=== PATIENT | female | born 1950 | race Caucasian/White ===

== ENCOUNTER → 2017-02-06 | Outpatient (CLI) | payer MEDICARE, OTHER ==
--- NOTE | 2017-02-06 15:26 | CT ---
EXAMINATION TYPE: CT chest wo con DATE OF EXAM: 02/06/2017 3:14 PM COMPARISON: NONE HISTORY: sob, hx of breast ca CT DLP: 791.1 mGycm High-resolution noncontrast CT of the chest was performed with the patient in the prone and supine po sitions. Lung and mediastinal window settings are submitted. Scattered areas of the subpleural fibrosis are noted within the upper lobes bilaterally as well as th e right middle lobe, lingular segment as well as the basilar regions. No evidence for focal consolida tion. No evidence for bronchiectasis. I do not see evidence for pulmonary nodule or mass. No pleural effusion is identified. I do not see evidence for hilar or mediastinal mass or adenopathy. Incidental of postoperative changes of the lower cervical spine as well as the left breast. Small fix ed hiatal hernia detected. IMPRESSION: 1. Mild scattered idiopathic pulmonary fibrosis.
== END ==
LOC: RADCTMAIN 14:53
PROVIDERS: ATTEND Family Medicine
DX: J84.112 Idiopathic pulmonary fibrosis (principal)
CPT/HCPCS: 71250; 94060; 94726; 94729; 99204

== ENCOUNTER 2017-02-13 10:13 | Day surgery (SDC) | payer MEDICARE, OTHER ==
[~2017-02-13 10:13] MED LIST: ALBUTEROL NEB (CONC) 2.5 MG/0.5 ML INHALATION ONE; ATROPINE SULFATE 0.4 MG/ML 1 ML VIAL IM ONE; LACTATED RINGERS 1,000 ML IV ONE; LACTATED RINGERS 1,000 ML IV SCH; LIDOCAINE 2% (PF) 20 MG/ML 10ML INHALATION ONE; Pre Op ABX Message 1 EACH MISC MISCELLANE ONE
[2017-02-13] MEDS ORDERED: LIDOCAINE 1% 20 ML VIAL (10MG/ML) FOR IV START INTRADERMA ONE (10:50)
[2017-02-13] MEDS ORDERED: KETAMINE 10 MG/ML 20 ML VIAL ONE (11:01)
[2017-02-13] MEDS ORDERED: PROPOFOL 10 MG/ML 20 ML VIAL IV ONE (11:01)
[2017-02-13] MEDS ORDERED: fentaNYL (PF) 50 MCG/ML 2 ML AMP ONE (11:01)
[2017-02-13] MEDS ORDERED: LIDOCAINE 1% INJ 10MG/ML (20 ML MDV) ONE (11:01)
[2017-02-13] MEDS ORDERED: MIDAZOLAM 2 MG/2 ML VIAL ONE (11:01)
[2017-02-13 11:03] VITALS: RESP 16; TEMP 98.7
[2017-02-13 11:07] LABS: Glucose,Whole Blood 131 mg/dL (75-99)
[2017-02-13 12:12] VITALS: BP 106/56; PULSE 66
[2017-02-13 16:49] LABS: RBC, Body Fluid 14100 /uL
--- NOTE | 2017-02-13 21:07 | PCN ---
DATE OF PROCEDURE: 02/13/2017 PROCEDURE: Bronchoscopy, airway examination, therapeutic lavage, BAL right middle lobe. PREOPERATIVE DIAGNOSIS: Retained secretions, cough, tracheobronchomalacia. POSTOPERATIVE DIAGNOSIS: Severe tracheobronchomalacia with mucosal erythema, hyperemia and secretions. There was informed consent. There was universal timeout. The nurse game protector provided general anesthesia with unconscious sedation. After the patient was adequately sedated and being fully monitored, the bronchoscope was inserted through the right nostril. It passed through the right nasopharynx into the oropharynx. The hypopharynx was identified and topicalized. She had a very crowded hypopharynx. After topicalization, the bronchoscope was pushed through the glottic opening into the trachea. The hypopharyngeal structures, including anterior commissure, true cords, false cords, arytenoids, piriform sinuses, right and left valleculae and epiglottis, all appeared relatively normal. In the trachea, there was significant tracheomalacia. The tracheal reggie was sharp. The airways were topicalized. The right and left mainstem were topicalized. The right upper lobe and its 3 segments, the right middle lobe and its 2 segments, the right lower lobe and its 5 segments, the left upper lobe proper and its 2 segments, the lingula and its 2 segments, and the left lower lobe and its 4 segments had similar findings of diffuse bronchitis, erythema and hyperemia. The membranes were friable. There were thick yellow-green secretions noted throughout. There was significant bronchomalacia. The bronchoscope was wedged into the right middle lobe. We did the BAL. The patient tolerated the procedure well. Additional secretions were cleansed with saline. Afterwards, the bronchoscope was withdrawn. There were no immediate pain complications. The patient will be recovered. The BAL specimen for the right middle lobe will be sent to the laboratory for analysis.
== END 2017-02-13 12:30 | disposition home or self-care (01) ==
LOC: ORWHC2ENDO 10:13
PROVIDERS: ATTEND Internal Medicine Critical Care Medicine
DX: J39.8 Other specified diseases of upper respiratory tract (principal); J98.09 Other diseases of bronchus, not elsewhere classified; R05 Cough; Z77.22 Contact with and (suspected) exposure to environmental tobacco smoke (acute) (chronic); K21.9 Gastro-esophageal reflux disease without esophagitis; E11.9 Type 2 diabetes mellitus without complications; Z79.811 Long term (current) use of aromatase inhibitors; Z79.51 Long term (current) use of inhaled steroids; Z79.899 Other long term (current) drug therapy; Z88.1 Allergy status to other antibiotic agents; Z88.0 Allergy status to penicillin; Z88.8 Allergy status to other drugs, medicaments and biological substances
CPT/HCPCS: 87798 ×4; 87496; 87498; 87529 ×2; 88108; 88305; 89050; 87252; 87502 ×2; 87070; 87205; 87116; 87102; 87206; 31624; J2250; J2001; J3010; J2704

== ENCOUNTER → 2017-03-13 | Outpatient (CLI) | payer MEDICARE, OTHER ==
--- NOTE | 2017-03-15 09:31 | USB ---
Reason for exam: additional evaluation requested from abnormal screening. History: Patient is postmenopausal, has history of breast cancer at age 64, and had first child at age 37. Family history of breast cancer in paternal aunt. Malignant US breast localization LT, May 17, 2015. Malignant US biopsy breast VAD LT of the left breast, April 29, 2015. Radiation therapy of the left breast, 2014. Benign US left guided VAD of the left breast, December 29, 2009. Took estrogen for 1 year beginning at age 42. US Breast RT Right breast ultrasound includes all four quadrants, the retroareolar region and axilla. Finding demonstrate no cystic or solid lesion seen. These results were verbally communicated with the patient and result sheet given to the patient on 03/13/17. ASSESSMENT: Negative, BI-RAD 1 RECOMMENDATION: Follow-up diagnostic mammogram of the right breast in 6 months.
--- NOTE | 2017-03-15 09:31 | MM ---
Reason for exam: additional evaluation requested from prior study. Last mammogram was performed 1 year ago. History: Patient is postmenopausal, has history of breast cancer at age 64, and had first child at age 37. Family history of breast cancer in paternal aunt. Malignant US breast localization LT, May 17, 2015. Malignant US biopsy breast VAD LT of the left breast, April 29, 2015. Radiation therapy of the left breast, 2014. Benign US left guided VAD of the left breast, December 29, 2009. Took estrogen for 1 year beginning at age 42. Physical Findings: Nurse did not find any significant physical abnormalities on exam. MG 3D Diag Mammo W/Cad YARITZA Bilateral CC and MLO view(s) were taken. XCCL view(s) were taken of the left breast. Prior study comparison: March 06, 2016, bilateral MG 3d diag mammo w/cad YARITZA. April 29, 2015, left breast MG diagnostic mammo LT wo CAD. There are scattered fibroglandular densities. Finding: There is a typically benign equal density, circumscribed oval mass located 12 cm from the nipple in the upper quadrant, posterior position of the right breast. New finding since March 06, 2016 and April 29, 2015. These results were verbally communicated with the patient and result sheet given to the patient on 03/12/17. ASSESSMENT: Incomplete: need additional imaging evaluation, BI-RAD 0 RECOMMENDATION: Ultrasound of the right breast.
== END | disposition home or self-care (01) ==
LOC: RADMAMWWP 13:13
PROVIDERS: ATTEND Radiology Diagnostic Radiology
DX: R92.8 Other abnormal and inconclusive findings on diagnostic imaging of breast (principal); Z85.3 Personal history of malignant neoplasm of breast
CPT/HCPCS: 76641; G0204; G0279

== ENCOUNTER 2017-03-22 15:40 | Inpatient (IN) | payer MEDICARE, OTHER ==
[2017-03-29] MEDS ORDERED: TRANEXAMIC ACID 1,000 MG in SODIUM CHLORIDE 0.9% 100 ML IVPB ONE ×4 (05:00)
[2017-03-29] MEDS ORDERED: MELOXICAM 7.5 MG TAB PO ONE (05:00)
[2017-03-29] MEDS ORDERED: ONDANSETRON 4 MG/2 ML VIAL IVP ONE ×2 (05:00→05:34)
[2017-03-29] MEDS ORDERED: ceFAZolin 2 GM in SODIUM CHLORIDE 0.9% 100 ML IVPB ONE (05:00)
[2017-03-29] MEDS ORDERED: ACETAMINOPHEN TAB 500 MG TAB PO ONE (05:00)
[2017-03-29] MEDS ORDERED: SCOPOLAMINE 1.5MG/72HR PATCH TRANSDERM ONE (05:34)
[2017-03-29] MEDS ORDERED: LIDOCAINE 1% 20 ML VIAL (10MG/ML) FOR IV START INTRADERMA PRN (05:34)
[2017-03-29] MEDS ORDERED: DEXAMETHASONE SOD PHOSPHATE 10 MG/ML 1 ML VIAL IV ONE (05:34)
[2017-03-29] MEDS ORDERED: HYDROmorphone 1 MG/ML 1 ML SYRINGE IVP PRN ×4 (05:34→13:24)
[2017-03-29] MEDS ORDERED: ROPIVACAINE 246.25 MG, EPINEPHrine 0.5 MG, KETOROLAC 30 MG, cloNIDine HCL/PF 80 MCG, WA... MISCELLANE ONE ×5 (08:56)
[2017-03-29] MEDS: LACTATED RINGERS 1,000 ML IV SCH ×2 (11:54→17:33)
[2017-03-29 11:59] LABS: Glucose,Whole Blood 93 mg/dL (75-99)
[2017-03-29] MEDS ORDERED: TEMAZEPAM 15 MG CAP PO PRN (13:24)
[2017-03-29] MEDS ORDERED: BISACODYL 10 MG SUPP RECTAL PRN (13:24)
[2017-03-29] MEDS ORDERED: ONDANSETRON 4 MG/2 ML VIAL IVP PRN ×2 (13:24→17:51)
[2017-03-29] MEDS ORDERED: NA PHOS,M-B/NA PHOS,DI-BA 133 ML ENEMA RECTAL PRN (13:24)
[2017-03-29] MEDS ORDERED: NALOXONE 0.4 MG/ML 1 ML VIAL IV PRN ×2 (13:24→17:51)
[2017-03-29] MEDS ORDERED: MAGNESIUM HYDROXIDE 2,400 MG/10 ML CUP PO PRN (13:24)
[2017-03-29] MEDS ORDERED: HYDROcodone/APAP 7.5-325MG 1 EACH TAB PO PRN ×2 (13:24)
[2017-03-29] MEDS ORDERED: ACETAMINOPHEN TAB 325 MG TAB PO PRN (13:24)
[2017-03-29 13:42] LABS: Glucose,Whole Blood 101 mg/dL (75-99)
[2017-03-29] MEDS ORDERED: fentaNYL (PF) 50 MCG/ML 2 ML AMP ONE (13:58)
[2017-03-29] MEDS ORDERED: LIDOCAINE 1% INJ 10MG/ML (20 ML MDV) ONE (13:58)
[2017-03-29] MEDS ORDERED: SODIUM CHLORIDE 0.9% 100 ML BAG ONE (13:58)
[2017-03-29] MEDS ORDERED: MIDAZOLAM 2 MG/2 ML VIAL ONE (13:58)
[2017-03-29] MEDS ORDERED: MORPHINE SULFATE (PF) 0.3 MG/0.3 ML SYR ONE (13:58)
[2017-03-29] MEDS ORDERED: PROPOFOL 10 MG/ML 20 ML VIAL IV ONE (13:58)
[2017-03-29] MEDS ORDERED: TRANEXAMIC ACID 1,000 MG/10 ML VIAL ONE (13:58)
[2017-03-29] MEDS: ceFAZolin 2 GM in SODIUM CHLORIDE 0.9% 100 ML IVPB SCH (14:14)
[2017-03-29] MEDS ORDERED: CLINDAMYCIN 1,800 MG in SODIUM CHLORIDE 0.9% IRRIGATIO 3,000 ML IRRIGATION ONE (14:43)
[2017-03-29] MEDS ORDERED: LACTATED RINGERS 1,000 ML IV ONE (14:44)
[2017-03-29] MEDS ORDERED: diphenhydrAMINE 50 MG/ML 1 ML VIAL IVP ONE (16:39)
[2017-03-29] MEDS: NALBUPHINE 10 MG/ML AMPUL IV STA ×2 (16:56→17:51)
--- NOTE | 2017-03-29 16:57 | XR ---
Limited left knee history: Postop left knee arthroplasty 2 views of the left knee No comparisons Patient is status post left knee arthroplasty. There is anatomic alignment. Small ossific densities a re present laterally likely related to surgery, lucency in the soft tissues likely related to postop state. IMPRESSION: Orthopedic follow-up.
[2017-03-29] MEDS ORDERED: MORPHINE SULFATE 4 MG/ML SYRINGE IVP PRN (17:51)
[2017-03-29] MEDS: diphenhydrAMINE 50 MG/ML 1 ML VIAL IVP PRN (19:18)
[2017-03-29] MEDS: hydrOXYzine PAMOATE 25 MG CAP PO PRN (20:13)
[2017-03-29] MEDS ORDERED: MORPHINE SULFATE 2 MG/ML SYRINGE IVP PRN (21:35)
[2017-03-29] MEDS: ASPIRIN 325 MG TAB PO SCH (23:05)
[2017-03-29] MEDS: SENNOSIDES-DOCUSATE SODIUM 1 EACH TAB PO SCH (23:05)
[2017-03-30] MEDS: ceFAZolin 2 GM in SODIUM CHLORIDE 0.9% 100 ML IVPB SCH (01:23)
[2017-03-30] MEDS: IPRATROPIUM-ALBUTEROL 3 ML NEB INHALATION PRN ×2 (03:38→22:04)
[2017-03-30] MEDS: diphenhydrAMINE 50 MG/ML 1 ML VIAL IVP PRN (05:09)
[2017-03-30] MEDS: LACTATED RINGERS 1,000 ML IV SCH ×4 (05:13→15:54)
[2017-03-30 07:11] LABS: Glucose,Whole Blood 143 mg/dL (75-99)
[2017-03-30 07:50] LABS: Basophils % (A) 0 %; CH 28.3; CHCM 29.3; Eosinophils % (A) 0 %; HCT 31.4 % (34.0-46.0); HDW 2.81; HGB 9.4 gm/dL (11.4-16.0); Hypochromasia Marked; Luc # (Auto) 0.09; Luc % (Auto) 1; Lymphocytes # (A) 0.9 k/uL (1.0-4.8); Lymphocytes % (A) 12 %; MCH 28.9 pg (25.0-35.0); MCHC 29.8 g/dL (31.0-37.0); MCV 96.7 fL (80.0-100.0); Monocytes # (A) 0.5 k/uL (0-1.0); Monocytes % (A) 6 %; Neutrophils % (A) 80 %; RBC 3.24 m/uL (3.80-5.40); RDW 15.2 % (11.5-15.5); WBC 7.5 k/uL (3.8-10.6); WBC (Perox) 7.72
[2017-03-30] MEDS ORDERED: ALBUTEROL NEBULIZED 2.5 MG/3 ML INHALATION SCH (08:00)
[2017-03-30] MEDS: ASPIRIN 325 MG TAB PO SCH ×2 (08:34→23:02)
--- NOTE | 2017-03-30 08:43 | P.PN ---
Progress Note - Text Date: 03-30-17 Time: 715 The patient is status post, total left knee arthroplasty Vital signs stable VAS: 3-10 The patient incurred some minimal itching yesterday, this itching is now subsiding. Pain meds to be managed by service.
[2017-03-30] MEDS: IPRATROPIUM-ALBUTEROL 3 ML NEB INHALATION SCH ×4 (08:49→19:58)
--- NOTE | 2017-03-30 08:54 | OP ---
DATE OF SERVICE: SURGEON: ARIES TOVAR MD JAMB CUTTER: Delgado No PA-C PREOPERATIVE DIAGNOSIS: Left knee osteoarthrosis. POSTOPERATIVE DIAGNOSIS: Left knee osteoarthrosis. OPERATION: Left total knee arthroplasty. ANESTHESIA: Spinal with sedation. ESTIMATED BLOOD LOSS: 100 mL SPECIMENS REMOVED: COMPLICATIONS: None apparent. TOURNIQUET TIME: 51 minutes at 250 mmHg. DRAINS: None. DISPOSITION: Postanesthesia care unit. OPERATIVE FINDINGS: INDICATIONS: Elsa is a very pleasant 66-year-old female with long-standing history of left knee pain. History and physical examination are consistent with advanced left knee osteoarthrosis. She has been through significant nonoperative management up to this point. Further treatment options were discussed and she decided to go forward with left total knee arthroplasty. The risks of the procedure were discussed with her in detail. These risks include, but are not limited to risk of infection, nerve damage, bleeding, pain, a small risk of deep vein thrombosis, which could lead to fatal pulmonary embolism. There is also a risk of loosening of the implant, which could require revision operation. Patient understands these risks. All of her questions were answered to her satisfaction. Appropriate informed consent was obtained. DESCRIPTION OF PROCEDURE: Patient was identified in the preoperative holding area. Surgical site was marked by both the patient and myself. She was given 2 grams of Ancef IV for prophylactic purposes. She was then transferred to the operative suite where she was placed supine on the operating room table. A spinal anesthetic was then administered and dosed per the anesthesia department without apparent complications. Examination under anesthesia was then performed. The patient was 2 to 3 degrees shy of full extension. She had 100 degrees of flexion in the medial collateral ligament. Lateral collateral ligament and posterior cruciate ligaments were stable. Tourniquet was then placed high on the left upper thigh, well padded in preparation for surgery. The patient's left lower extremity was then prepped and draped in the usual sterile fashion. Standard surgical pause was then undertaken to ensure that we are operating on the correct site and that appropriate preoperative antibiotics had been given. All staff in the room were in agreement and we proceeded. The outlines of the patella were then marked with surgical pen. A planned 12 cm vertical incision centered over the patella was marked with a surgical pen. The leg was then exsanguinated with an Esmarch dressing. The knee was then flexed and tourniquet was inflated to 250 mmHg. The total tourniquet time for the procedure was 51 minutes. Incision was then made with a 10 blade scalpel. Dissection was carried down sharply to the overlying fascia. Great care was taken to minimize the skin flaps. The knee was then exposed using a standard medial parapatellar approach. Small cuff of quadriceps tendon was then left for suturing. She was in a bit of varus preoperatively. A standard medial release was then made. Superficial medial collateral ligament was dissected off the bone around to the posterior aspect of the proximal tibia. The medial meniscus was then excised as well. The lateral meniscus was also released anteriorly. The leg was then externally rotated. The patella was everted and the knee was flexed. Retractors were then placed to protect the collateral ligaments. I then proceeded to remove the infrapatellar fat pad. This was excised sharply tangentially with the fibers of the patellar tendon. I then proceeded to remove the peripheral osteophytes. This was done with a rongeur. I then proceeded with distal femoral resection. She did have near full extension. A planned 9 mm resection was done. The femoral canal was then entered in the midline of the femur, approximately 10 mm anterior to the origin of the posterior cruciate ligament. The lilly was then advanced down the center of the femur and the lilly placed intramedullary. Based on preoperative radiographs, the angle between the anatomic and mechanical axis of the femur was approximately 4 to 5 degrees. The valgus angle of distal femoral cutting guide was then set at 4 degrees for the left knee. The distal femoral cutting guide was then advanced over the intramedullary lilly. This was seated firmly against the femur. I then, as mentioned, planned to take 9 mm off of the distal femur. The cutting block was then secured onto the femur with pins. The jig was then removed and the distal femoral cut was made through the slot of the block. The pins were then removed and the distal femoral cutting block was removed. The accuracy of the distal femoral cuts was checked with 2 flat bars. I then proceeded with femoral sizing. The posterior referencing sizing guide was held firmly against the resected distal surface of the femur. Posterior condyles were resting on the posterior plane of the guide. Sizing stylus was then placed on the anterior femur. Size was measured a size 7. I then assessed for femoral rotation. Plan was for 3 degrees external rotation, 3 degrees of external rotation was placed onto the jig. These holes were then marked. I then confirmed the rotation by 3 separate methods. This was done using epicondylar axis as well as Whitesides line and posterior referencing. It was deemed that the external rotation was proper. I then went forward placing the femoral cutting block. This was placed over the previously placed pinholes. Tristen wing was then placed onto the anterior slots to ensure that we would not notch the anterior femur with the anterior femoral cut. I then proceeded with the anterior femoral cut. This was flush with the anterior cortex of the femur. Posterior cuts were then made followed by the anterior chamfer cut and then the posterior chamfer cut. The cutting block was then removed. Throughout the resection, the collateral ligaments were protected with retractors. I then placed a trial size 7 femur. It was deemed that a 7 narrow would fit very nice medial to lateral and it fit flush with the distal end of the femur. The drill holes were then made. I then proceeded with the tibial cut. I planned for cruciate-retaining knee. The guide was then placed and set for varus valgus and for slope. Height was set for approximately 2 mm resection from the medial tibial plateau, which was the lower side. I was happy with the alignment and the amount of resection. The cutting block was then pinned to the proximal tibia. The alignment lilly was removed and the proximal tibia was resected with the reciprocating saw. Again, this was done with retractors, protecting the collateral ligaments as well as posterior cruciate ligament. I then proceeded violate the flexion-extension gaps. A 10 mm block was placed. The flexion-extension gaps were equal. I then proceeded with resection of the posterior osteophytes. She had very mild amount of the posterior osteophytes. This was done with a curved osteotome. This resected the posterior osteophytes and posterior capsule stripping was also done off the posterior aspect of the femur at this time. The osteophytes were then removed. I then proceeded to resection of the patella. Thickness of the patella was then measured using the caliper. The thickness was 22 mm. The thickness of the anticipated patellar dome was then taken into account. Resection was informed be equal in 4 quadrants using the caliper. Approximately 14 mm of bone remained after the resection. A 29 x 8 mm standard patellar trial was then placed. The holes were then drilled and trial was then placed. I then proceeded with sizing tibial plate. A size D tibial plate fit very nicely. I then placed trial femur, the tibial tray and the patellar button. A 10 mm trial insert was also placed. I then trialed that up to a 14 mm insert. Components fit very nicely. She had full flexion and extension. The extension and flexion gaps were equal and stable to both varus and valgus stress. The patella tracked appropriately. The tibial tray rotation was then marked with a Bovie. This was externally rotated properly. I then proceeded with tibial preparation. I first drilled femoral holes and removed femoral component. The tibial tray was then set for proper external rotation as well as mediolateral placement onto the tibia. It was then pinned into place. I then proceeded with punching the keel. I then decided to proceed with cementing of all of our components. The knee was thoroughly irrigated with sterile saline solution via pulse lavage. The lateral geniculate artery was identified and cauterized. All blood was removed from the bone of the tibia, femur and patella with pulse lavage. I then proceeded with cementing. 2 packs of antibiotic bone cement were prepared on the back table by the county program technician. I then proceeded with cementing of the tibia first. The cement was impacted in the keel as well as deeply seated into the bone. A second coat of cement was then placed. The tibia was then impacted into place. Excess cement was removed with Marbury's and jokers. I then proceeded with cementing of femoral component. The femoral component was also cemented using standard technique. Excess cement was removed. A 14 mm trial insert was then placed into the knee. It was brought into full extension with a constant axial load placed until the cement had hardened. The patellar component was then cemented. This was held firmly with a compressive device until the cement had dried. When the cement had dried, the knee was taken out of extension. All excess cement was removed from around the prosthesis. I then trialed the knee with a 14 mm insert. Flexion-extension gaps were appropriate. The knee was stable. It came into full extension. I decided to go forward with a 14 mm cross-linked cruciate-retaining tibial insert. Polyethylene was then placed onto the tibial tray and locked into place. The knee was then reduced. The knee was again further irrigated with sterile saline solution with antibiotic added. The tourniquet was then deflated. The total tourniquet time for this procedure was 51 minutes at 250 mmHg. Final components were Catie persona size 7 narrow cruciate-retaining femoral component, a size D tibial tray, a 14 mm cruciate retaining polyethylene insert and a 29 x 8 mm patella. I then proceeded with closure. Again, the knee was thoroughly irrigated. The quadriceps tendon and the medial retinaculum were reapproximated with #2 Ethibond suture. The extensor mechanism was then closed with running #2 Quill suture. Subcutaneous tissues were then closed with 2-0 Vicryl interrupted suture. Skin was closed with a running 3-0 Quill suture. Dermabond was applied to the incision. Sterile compressive dressings were then applied. All sponge and needle counts were deemed correct prior to closure. The patient tolerated the procedure without apparent complication. She was transferred to recovery room in stable condition.
[2017-03-30] MEDS: DIAZEPAM 5 MG TAB PO PRN (11:22)
[2017-03-30] MEDS: MULTIVITAMINS, THERA 1 EACH TAB PO SCH (11:22)
[2017-03-30] MEDS ORDERED: oxyCODONE-APAP 7.5-325MG 1 EACH TAB PO PRN (11:30)
--- NOTE | 2017-03-30 11:38 | P.PN ---
Subjective Principal diagnosis: Status post left total knee arthroplasty Patient is a pleasant 66 female seen at bedside this morning where she is postop day #1 from left total knee arthroplasty performed by Dr. Collado. She has pain at the surgical site as expected. She denies new complaints. She denies calf pain. She states she's had chronic numbness and tingling from a previous broken neck. Review of systems is negative for fever, chills, chest pain, shortness breath, nausea, vomiting, dizziness, headaches, slurred speech or other.. Objective - Vital Signs Vital signs: Vital Signs Temp 98.3 F 03/30/17 07:00 Pulse 90 03/30/17 11:28 Resp 16 03/30/17 07:00 BP 114/61 03/30/17 07:00 Pulse Ox 92 L 03/30/17 07:00 Intake & Output 03/29/17 03/30/17 03/30/17 18:59 06:59 18:59 Intake Total 1801 1200 360 Output Total 200 1600 900 Balance 1601 -400 -540 Intake: IV 1801 Intake, IV Titration 1200 Amount Lactated Ringers 1,000 ml 1200 @ 100 mls/hr IV .Q10H KARL Rx#:[id number] Oral 360 Output: Urine 100 1600 900 Uretheral (Marquez) 900 Estimated Blood Loss 100 Other: Voiding Method Indwelling Catheter Indwelling Catheter Indwelling Catheter - Exam Inspection of the surgical wound is benign. There is no active bleeding, drainage or dehiscence. Motor and sensation is intact throughout the left lower extremity. Calf is soft and nontender. 2+ dorsalis pedis pulse and less than 2 second cap refill is present. She has pain at the left knee with minimal movement. - Constitutional General appearance: Present: no acute distress - Psychiatric Psychiatric: Present: A&O x's 3, appropriate affect, intact judgment & insight - Labs CBC & Chem 7: 03/30/17 06:57 Labs: Abnormal Lab Results - Last 24 Hours (Table) 03/29/17 03/30/17 03/30/17 Range/Units 13:39 06:57 07:09 RBC 3.24 L (3.80-5.40) m/uL Hgb 9.4 L (11.4-16.0) gm/dL Hct 31.4 L (34.0-46.0) % MCHC 29.8 L (31.0-37.0) g/dL Lymphocytes # 0.9 L (1.0-4.8) k/uL POC Glucose (mg/dL) 101 H 143 H (75-99) mg/dL Assessment and Plan (1) Status post total left knee replacement Narrative/Plan: Patient will continue with routine postop orthopedic protocol including pain management where her pain medicine will be increased to oxycodone as her pain is not controlled with hydrocodone, physical therapy, wound care, DVT prophylaxis and medical management. We'll monitor her status today and make further recommendations as appropriate. Status: Acute Time with Patient: Less than 30
[2017-03-30 11:59] LABS: Glucose,Whole Blood 122 mg/dL (75-99)
[2017-03-30] MEDS: DULoxetine HCL 60 MG CAPSULE.DR PO SCH (12:15)
[2017-03-30] MEDS: oxyCODONE-APAP 7.5-325MG 1 EACH TAB PO PRN ×2 (12:15→18:53)
[2017-03-30] MEDS: traMADol 50 MG TAB PO PRN (16:31)
[2017-03-30] MEDS: hydrOXYzine PAMOATE 25 MG CAP PO PRN (18:54)
[2017-03-30] MEDS: BUDESONIDE 0.5 MG/2 ML NEBU INHALATION SCH (19:56)
--- NOTE | 2017-03-30 20:11 | CONS ---
DATE OF CONSULTATION: REASON FOR CONSULTATION: Recommendations regarding antihypertensive medications, perioperative complication management. Patient is a pleasant 66-year-old female admitted for left knee arthroplasty. Patient successfully underwent surgery. Patient did not pass gas yet. Patient's hemoglobin is 9.4 at this point of time. Patient's pre-surgery hemoglobin is not available. Patient denied any fever or chills. Patient denied any nausea, vomiting, abdominal pain. REVIEW OF SYSTEMS: CONSTITUTIONAL: No fever, no malaise, no fatigue. HEENT: No recent visual problems or hearing problems. Denied any sore throat. CARDIOVASCULAR: No chest pain, orthopnea, PND, no palpitations, no syncope. PULMONARY: No shortness of breath, no cough, no hemoptysis. GASTROINTESTINAL: No diarrhea, no nausea, no vomiting, no abdominal pain. Normoactive bowel sounds. NEUROLOGICAL: No headaches, no weakness, no numbness. HEMATOLOGICAL: Denies any bleeding or petechiae. GENITOURINARY: Denies any burning micturition, frequency, or urgency. MUSCULOSKELETAL/RHEUMATOLOGICAL: Denies any joint pain, swelling, or any muscle pain. ENDOCRINE: Denies any polyuria or polydipsia. The rest of the 14 point review of systems is negative. Home medications include: 1. Verapamil. 2. Temazepam. 3. Melatonin. 4. Magnesium oxide. 5. Hydrochlorothiazide. 6. Duloxetine. 7. Cetirizine. 8. Budesonide. 9. Vitamin B complex. 10. Albuterol. Past medical history is significant for: 1. Breast surgery. 2. Orthopedic surgery. 3. Cervical fusion surgery. 4. Anxiety. 5. Depression. Denied any smoking or alcohol abuse, but does drink a couple of glasses of wine every day. Denied any drug abuse. FAMILY HISTORY: Significant for prostate cancer. PHYSICAL EXAMINATION: VITAL SIGNS: Temperature 98.1, pulse of 90, respiratory rate of 16. Blood pressure is 120/68. Saturating at 95% on room air. GENERAL: The patient is alert and oriented x3, not in any acute distress. Well developed, well nourished. HEENT: Pupils are round and equally reacting to light. EOMI. No scleral icterus. No conjunctival pallor. Normocephalic, atraumatic. No pharyngeal erythema. No thyromegaly. CARDIOVASCULAR: S1 and S2 present. No murmurs, rubs, or gallops. PULMONARY: Chest is clear to auscultation, no wheezing or crackles. ABDOMEN: Soft, nontender, nondistended, normoactive bowel sounds. No palpable organomegaly. MUSCULOSKELETAL: Deferred to Orthopedic Surgery. EXTREMITIES: No cyanosis, clubbing, or pedal edema. NEUROLOGICAL: Gross neurological examination did not reveal any focal deficits. SKIN: No rashes. LABORATORY DATA: As mentioned above. ASSESSMENT AND PLAN: 1. Hypertension. To prevent perioperative hypotension, I will hold off on antihypertensive medications. 2. Asthma without any acute exacerbation. Continue with inhalational steroids. 3. Depression. Continue with Duloxetine. 4. Left knee arthroplasty. Management as per primary service. Thank for letting me participate in this patient's care. Will continue to follow the patient on an as-needed basis. Verapamil will be continued to prevent any reflex tachycardia. Losartan and diuretic therapy will be held.
[2017-03-30] MEDS: SENNOSIDES-DOCUSATE SODIUM 1 EACH TAB PO SCH (23:02)
[2017-03-30] MEDS: MELATONIN 5 MG TABLET PO SCH (23:03)
[2017-03-31] MEDS: oxyCODONE-APAP 7.5-325MG 1 EACH TAB PO PRN ×4 (01:29→21:12)
[2017-03-31] MEDS: DIAZEPAM 5 MG TAB PO PRN ×3 (03:38→19:37)
[2017-03-31] MEDS: traMADol 50 MG TAB PO PRN ×3 (03:39→16:35)
[2017-03-31] MEDS: LACTATED RINGERS 1,000 ML IV SCH ×3 (07:10→13:48)
[2017-03-31] MEDS: IPRATROPIUM-ALBUTEROL 3 ML NEB INHALATION SCH ×4 (08:00→19:48)
[2017-03-31] MEDS: BUDESONIDE 0.5 MG/2 ML NEBU INHALATION SCH ×2 (08:00→19:48)
[2017-03-31] MEDS: hydrOXYzine PAMOATE 25 MG CAP PO PRN ×2 (08:47→15:02)
[2017-03-31] MEDS: DULoxetine HCL 60 MG CAPSULE.DR PO SCH (08:48)
[2017-03-31] MEDS: ASPIRIN 325 MG TAB PO SCH ×2 (08:48→20:20)
[2017-03-31] MEDS: VERAPAMIL SR 180 MG TABLET.ER PO SCH (08:48)
[2017-03-31] MEDS ORDERED: DULoxetine HCL 60 MG CAPSULE.DR PO SCH (09:00)
--- NOTE | 2017-03-31 10:20 | P.PN ---
Subjective Principal diagnosis: Primary osteoarthritis left knee Status post total left knee arthroplasty This is a 66-year-old female who is status post total left knee arthroplasty. She is doing well from an orthopedic standpoint. She has no new complaints or concerns today. Vital signs are stable. Objective - Vital Signs Vital signs: Vital Signs Temp 97.9 F 03/31/17 07:00 Pulse 96 03/31/17 08:17 Resp 16 03/31/17 07:00 BP 132/68 03/31/17 07:00 Pulse Ox 90 L 03/31/17 08:04 Intake & Output 03/30/17 03/31/17 03/31/17 18:59 06:59 18:59 Intake Total 2200 Output Total 1100 Balance 1100 Intake: Oral 2200 Output: Urine 1100 Uretheral (Marquez) 900 Other: Voiding Method Indwelling Catheter Toilet # Voids 4 - Exam This is a pleasant 56-year-old female in no acute distress. She is alert and oriented 3. Exam the left knee reveals that her incision looks good. There is mild ecchymosis. There is no erythema. There is mild ecchymosis down into the calf. She has full foot and ankle motion without difficulty or pain. Homans is negative. Neurovascular status to the lower extremities intact. - Labs CBC & Chem 7: 03/30/17 06:57 Labs: Abnormal Lab Results - Last 24 Hours (Table) 03/30/17 Range/Units 11:44 POC Glucose (mg/dL) 122 H (75-99) mg/dL Assessment and Plan (1) Unilateral primary osteoarthritis, left knee Status: Acute (2) Status post total left knee replacement Status: Acute Plan: The clinical findings are discussed the patient. Her dressing is changed. He may continue to ambulate as tolerated. We are planning discharge to inpatient rehab Sunday.
[2017-03-31] MEDS: MULTIVITAMINS, THERA 1 EACH TAB PO SCH (11:00)
[2017-03-31] MEDS: MELATONIN 5 MG TABLET PO SCH (20:20)
[2017-03-31] MEDS: SENNOSIDES-DOCUSATE SODIUM 1 EACH TAB PO SCH (20:20)
[2017-04-01] MEDS: LACTATED RINGERS 1,000 ML IV SCH ×3 (02:33→09:23)
[2017-04-01] MEDS: oxyCODONE-APAP 7.5-325MG 1 EACH TAB PO PRN ×4 (03:21→23:22)
[2017-04-01 07:24] LABS: Basophils # (A) 0.1 k/uL (0-0.2); Basophils % (A) 1 %; CH 28.4; CHCM 30.7; Eosinophils # (A) 0.3 k/uL (0-0.7); Eosinophils % (A) 3 %; HCT 31.8 % (34.0-46.0); HDW 2.95; HGB 9.8 gm/dL (11.4-16.0); Hypochromasia Moderate; Luc # (Auto) 0.23; Luc % (Auto) 3; Lymphocytes # (A) 2.4 k/uL (1.0-4.8); Lymphocytes % (A) 26 %; MCH 28.7 pg (25.0-35.0); MCHC 30.9 g/dL (31.0-37.0); MCV 92.8 fL (80.0-100.0); Mean Platelet Volume 7.3; Monocytes # (A) 0.8 k/uL (0-1.0); Monocytes % (A) 8 %; Neutrophils # (A) 5.5 k/uL (1.3-7.7); Neutrophils % (A) 59 %; RBC 3.42 m/uL (3.80-5.40); RDW 15.5 % (11.5-15.5); WBC 9.2 k/uL (3.8-10.6); WBC (Perox) 9.33
[2017-04-01] MEDS: ASPIRIN 325 MG TAB PO SCH ×2 (08:24→20:25)
[2017-04-01] MEDS: DIAZEPAM 5 MG TAB PO PRN ×2 (08:25→22:59)
[2017-04-01] MEDS: VERAPAMIL SR 180 MG TABLET.ER PO SCH (08:25)
[2017-04-01] MEDS: traMADol 50 MG TAB PO PRN (08:25)
[2017-04-01] MEDS: DULoxetine HCL 60 MG CAPSULE.DR PO SCH (08:25)
[2017-04-01] MEDS: BUDESONIDE 0.5 MG/2 ML NEBU INHALATION SCH ×2 (08:37→18:53)
[2017-04-01] MEDS: IPRATROPIUM-ALBUTEROL 3 ML NEB INHALATION SCH ×4 (08:37→18:53)
--- NOTE | 2017-04-01 09:28 | P.PN ---
Subjective Principal diagnosis: Primary osteoarthritis left knee Status post total left knee arthroplasty This is a 66-year-old female who is status post total left knee arthroplasty. She is doing well from an orthopedic standpoint. She has no new complaints or concerns today. Vital signs are stable. Objective - Vital Signs Vital signs: Vital Signs Temp 97.5 F L 04/01/17 07:00 Pulse 80 04/01/17 08:49 Resp 16 04/01/17 07:00 BP 130/68 04/01/17 07:00 Pulse Ox 95 04/01/17 07:00 Intake & Output 03/31/17 04/01/17 04/01/17 18:59 06:59 18:59 Intake Total 1760 480 Balance 1760 480 Intake: Oral 1760 480 Other: Voiding Method Toilet Toilet Toilet # Voids 2 2 - Exam This is a pleasant 56-year-old female in no acute distress. She is alert and oriented 3. Exam the left knee reveals that her incision looks good. There is mild ecchymosis. There is no erythema. There is scant drainage from the proximal aspect of the incision. There is mild ecchymosis down into the calf. She has full foot and ankle motion without difficulty or pain. Homans is negative. Neurovascular status to the lower extremities intact. - Labs CBC & Chem 7: 04/01/17 07:06 Labs: Abnormal Lab Results - Last 24 Hours (Table) 04/01/17 Range/Units 07:06 RBC 3.42 L (3.80-5.40) m/uL Hgb 9.8 L (11.4-16.0) gm/dL Hct 31.8 L (34.0-46.0) % MCHC 30.9 L (31.0-37.0) g/dL Assessment and Plan (1) Unilateral primary osteoarthritis, left knee Status: Acute (2) Status post total left knee replacement Status: Acute Plan: The clinical findings are discussed the patient. Her dressing is changed. He may continue to ambulate as tolerated. We are planning discharge to inpatient rehab Sunday.
[2017-04-01] MEDS: hydrOXYzine PAMOATE 25 MG CAP PO PRN ×2 (11:23→18:18)
[2017-04-01] MEDS: MULTIVITAMINS, THERA 1 EACH TAB PO SCH (11:24)
[2017-04-01] MEDS: MELATONIN 5 MG TABLET PO SCH (20:25)
[2017-04-02] MEDS: SENNOSIDES-DOCUSATE SODIUM 1 EACH TAB PO SCH (01:21)
[2017-04-02] MEDS: LACTATED RINGERS 1,000 ML IV SCH ×4 (01:21→08:12)
[2017-04-02 03:32] VITALS: BP 110/70; RESP 17; TEMP 98.3
[2017-04-02] MEDS: oxyCODONE-APAP 7.5-325MG 1 EACH TAB PO PRN ×2 (05:47→11:37)
--- NOTE | 2017-04-02 07:47 | US ---
EXAMINATION TYPE: US venous doppler duplex LE LT DATE OF EXAM: 04/02/2017 7:41 AM COMPARISON: NONE CLINICAL HISTORY: post-opleft knee replacement. Left leg pain. SIDE PERFORMED: Left TECHNIQUE: The lower extremity deep venous system is examined utilizing real time linear array sonog john with graded compression, doppler sonography and color-flow sonography. VESSELS IMAGED: External Iliac Vein (EIV) Common Femoral Vein Deep Femoral Vein Greater Saphenous Vein * Femoral Vein Popliteal Vein Small Saphenous Vein * Proximal Calf Veins (* superficial vessels) Left Leg: Negative for DVT Grayscale, color doppler, spectral doppler imaging performed of the deep veins of the lower extremiti es. There is normal flow, compressibility, vascular waveforms bilaterally. IMPRESSION: No ultrasound evidence for acute DVT in the left lower extremity
[2017-04-02] MEDS: DULoxetine HCL 60 MG CAPSULE.DR PO SCH (08:11)
[2017-04-02] MEDS: ASPIRIN 325 MG TAB PO SCH (08:11)
[2017-04-02] MEDS: VERAPAMIL SR 180 MG TABLET.ER PO SCH (08:11)
[2017-04-02] MEDS: MULTIVITAMINS, THERA 1 EACH TAB PO SCH (08:12)
[2017-04-02] MEDS: IPRATROPIUM-ALBUTEROL 3 ML NEB INHALATION SCH ×2 (08:23→12:03)
[2017-04-02] MEDS: BUDESONIDE 0.5 MG/2 ML NEBU INHALATION SCH (08:23)
--- NOTE | 2017-04-02 09:00 | P.DS ---
Providers Date of admission: 03/29/17 11:09 Expected date of discharge: 04/02/17 Attending physician: Sudarshan Collado Consults: 03/29/17 13:24 Consult Physician Routine Consulting Provider: Shaista Thurston Consult Reason/Comments: post op medical management Do you want consulting provider notified?: Yes Primary care physician: Jacki Curtis - Discharge Diagnosis(es) (1) Status post total left knee replacement Patient is a 66-year-old female that was admitted to the OR on 03/29/2017 to undergo left total knee arthroplasty per Dr. Collado. She had failed conservative measures as an outpatient and desired to proceed with elective surgery after given informed consent. She underwent the above procedure which she tolerated well without competition. Her postoperative hospital course has remained without complication. On day of discharge she is afebrile, vital signs stable, wound is benign, labs within acceptable ranges, neurovascular status intact, denies new complaints, pain controlled with oral pain medication , tolerating by mouth meds and diet, voiding without difficulty, positive flatus , abdomen soft nontender, calf is soft and nontender. Review of systems is negative for fever, chills, chest pain, shortness of breath, numbness, tingling , nausea, vomiting, headaches, calf pain, abdominal pain, slurred speech, dizziness, rashes, bleeding or other. Current Visit: Yes Status: Acute Priority: Medium Procedures: Left total knee arthroplasty Patient Condition at Discharge: Good Plan - Discharge Summary New Discharge Prescriptions: New Aspirin 325 mg PO BID #60 tab Docusate [Colace] 100 mg PO BID #60 capsule oxyCODONE-APAP 5-325MG [Percocet 5-325 mg] 1 tab PO Q4HR PRN #90 tab PRN Reason: Pain No Action Temazepam [Restoril] 15 mg PO HS Hydrochlorothiazide [Hydrodiuril] 25 mg PO DAILY Verapamil HCl [Verapamil ER] 180 mg PO DAILY Valsartan [Diovan] 160 mg PO DAILY DULoxetine HCL [Cymbalta] 60 mg PO DAILY Fluticasone Nasal [place] [Flonase Nasal [place]] 1 spray EA NOSTRIL DAILY Cetirizine HCl [Zyrtec] 10 mg PO DAILY Budesonide [Pulmicort Flexhaler] 2 puff INHALATION RT-BID Albuterol Sulfate [Proair Hfa] 2 puff INHALATION RT-BID Melatonin 10 mg PO HS B Complex-Vit C-Vit E-Zinc [Z-Bec] 1 tab PO DAILY Magnesium Oxide [Magnesium] 250 mg PO DAILY Biotin 10,000 mcg PO DAILY Milk Thistle 480 mg PO BID Iron 18 mg PO DAILY Discharge Medication List Hydrochlorothiazide [Hydrodiuril] 25 mg PO DAILY 05/14/15 [History] Temazepam [Restoril] 15 mg PO HS 05/14/15 [History] Verapamil HCl [Verapamil ER] 180 mg PO DAILY 05/14/15 [History] Albuterol Sulfate [Proair Hfa] 2 puff INHALATION RT-BID 02/08/17 [History] Budesonide [Pulmicort Flexhaler] 2 puff INHALATION RT-BID 02/08/17 [History] Cetirizine HCl [Zyrtec] 10 mg PO DAILY 02/08/17 [History] DULoxetine HCL [Cymbalta] 60 mg PO DAILY 02/08/17 [History] Fluticasone Nasal [place] [Flonase Nasal [place]] 1 spray EA NOSTRIL DAILY 02/08/17 [History] Valsartan [Diovan] 160 mg PO DAILY 02/08/17 [History] B Complex-Vit C-Vit E-Zinc [Z-Bec] 1 tab PO DAILY 03/23/17 [History] Biotin 10,000 mcg PO DAILY 03/23/17 [History] Iron 18 mg PO DAILY 03/23/17 [History] Magnesium Oxide [Magnesium] 250 mg PO DAILY 03/23/17 [History] Melatonin 10 mg PO HS 03/23/17 [History] Milk Thistle 480 mg PO BID 03/23/17 [History] Aspirin 325 mg PO BID #60 tab 04/02/17 [Rx] Docusate [Colace] 100 mg PO BID #60 capsule 04/02/17 [Rx] oxyCODONE-APAP 5-325MG [Percocet 5-325 mg] 1 tab PO Q4HR PRN #90 tab 04/02/17 [ Rx] Follow up Appointment(s)/Referral(s): Sudarshan Collado MD [STAFF PHYSICIAN] - 2 Weeks Activity/Diet/Wound Care/Special Instructions: Take meds as directed Follow-up with Dr. Collado in office Weightbearing as tolerated keep wound clean and dry Discharge Disposition: TRANSFER TO SNF/F
[2017-04-02 12:14] VITALS: PULSE 92
--- NOTE | 2017-04-02 18:29 | PN ---
The patient is being discharged today which is okay from medical perspective. Regarding from medical perspective we will hold off on hydrochlorothiazide and valsartan as her blood pressure remained low normal in spite of holding these medications since her admission. Beyond that there is no further recommendations. Medication reconciliation was reviewed. REVIEW OF SYSTEMS: CARDIOVASCULAR: No chest pain, no orthopnea, no PND, no palpitations. PULMONARY: Denied any shortness of breath. No cough or hemoptysis. GASTROINTESTINAL: No diarrhea, nausea or vomiting. No abdominal pain. Normoactive bowel sounds. NEUROLOGIC: No headaches, no weakness, no numbness. Medications are reviewed. PHYSICAL EXAMINATION: Temperature 98.3, pulse of 92, respiratory rate 17, blood pressure is 110/70, saturating at 94% on room air. GENERAL: The patient is alert and oriented x3, not in any acute distress. Well developed, well nourished. HEENT: Pupils are round and equally reacting to light. EOMI. No scleral icterus. No conjunctival pallor. Normocephalic, atraumatic. No pharyngeal erythema. No thyromegaly. CARDIOVASCULAR: S1 and S2 present. No murmurs, rubs, or gallops. PULMONARY: Chest is clear to auscultation, no wheezing or crackles. ABDOMEN: Soft, nontender, nondistended, normoactive bowel sounds. No palpable organomegaly. MUSCULOSKELETAL: deferred to orthopedic surgery. EXTREMITIES: No cyanosis, clubbing, or pedal edema. NEUROLOGICAL: Gross neurological examination did not reveal any focal deficits. SKIN: No rashes. ASSESSMENT AND PLAN: 1. Hypertension. Management as mentioned above. 2. Asthma without acute exacerbation. 3. Depression. 4. Left knee arthroplasty. The patient medications were reviewed and patient is okay to be discharged from a medical perspective. Patient is being discharged to subacute rehabilitation. Patient needs to follow with Dr. Jacki Curtis a week after the discharge from subacute rehab. Will sign off at this point of time.
== END 2017-04-02 13:47 | DRG 470 ==
LOC: 2ORMAIN 03-29 11:09 → 3SUR 03-29 16:16
PROVIDERS: ADMIT Orthopaedic Surgery Sports Medicine; ATTEND Orthopaedic Surgery Sports Medicine
PROC: 0SRD0J9 Replacement of Left Knee Joint with Synthetic Substitute, Cemented, Open Approach (ICD-10-PCS; principal; 2017-03-29 13:20)
DX: M17.12 Unilateral primary osteoarthritis, left knee (principal); J84.10 Pulmonary fibrosis, unspecified; I10 Essential (primary) hypertension; F32.9 Major depressive disorder, single episode, unspecified; F41.9 Anxiety disorder, unspecified; J45.909 Unspecified asthma, uncomplicated; E11.9 Type 2 diabetes mellitus without complications; M48.02 Spinal stenosis, cervical region; K57.90 Diverticulosis of intestine, part unspecified, without perforation or abscess without bleeding; L43.9 Lichen planus, unspecified; G47.00 Insomnia, unspecified; M54.5 Low back pain; Z79.899 Other long term (current) drug therapy; Z88.1 Allergy status to other antibiotic agents; Z88.8 Allergy status to other drugs, medicaments and biological substances; Z85.3 Personal history of malignant neoplasm of breast; Z82.49 Family history of ischemic heart disease and other diseases of the circulatory system; Z98.1 Arthrodesis status
CPT/HCPCS: 85025; 87070; 88305; 88311; 94640; 94760

== ENCOUNTER → 2017-03-27 | Outpatient (CLI) | payer MEDICARE, OTHER | LOC: LABPAT 10:14 | PROVIDERS: ATTEND Orthopaedic Surgery Sports Medicine | DX: Z01.812 Encounter for preprocedural laboratory examination (principal) | CPT/HCPCS: 87070 ==

== ENCOUNTER 2017-04-07 15:19 | Emergency (ER) | payer MEDICARE, OTHER ==
--- NOTE | 2017-04-07 16:02 | ED ---
General Adult HPI - General Chief complaint: Extremity Problem,Nontraumatic Stated complaint: Knee Pain Time Seen by Provider: 04/07/17 15:28 Source: patient, RN notes reviewed, old records reviewed Mode of arrival: wheelchair Limitations: no limitations - History of Present Illness Initial comments: Chief complaint and history of present illness is a 66-year-old female with total left knee done recently. Just 5 days ago she had swelling to the knee and leg had an ultrasound which was reported to be negative. Since then the swelling has become worse. More discomfort on the medial aspect as well as some redness toward the medial aspect of the left knee. The patient is here for lab work and repeat ultrasound to rule out DVT. Patient does have a history of pulmonary fibrosis but denies any worsening of her shortness of breath. - Related Data Home Medications Medication Instructions Recorded Confirmed Temazepam [Restoril] 15 mg PO HS 05/14/15 04/07/17 Verapamil HCl [Verapamil ER] 180 mg PO DAILY 05/14/15 04/07/17 Albuterol Sulfate [Proair Hfa] 2 puff INHALATION RT-BID 02/08/17 04/07/17 Budesonide [Pulmicort Flexhaler] 2 puff INHALATION RT-BID 02/08/17 04/07/17 Cetirizine HCl [Zyrtec] 10 mg PO DAILY 02/08/17 04/07/17 DULoxetine HCL [Cymbalta] 60 mg PO DAILY 02/08/17 04/07/17 Fluticasone Nasal [place] [Flonase 1 spray EA NOSTRIL DAILY 02/08/17 04/07/17 Nasal [place]] B Complex-Vit C-Vit E-Zinc [Z-Bec] 1 tab PO DAILY 03/23/17 04/07/17 Biotin 10,000 mcg PO DAILY 03/23/17 04/07/17 Iron 18 mg PO DAILY 03/23/17 04/07/17 Magnesium Oxide [Magnesium] 250 mg PO DAILY 03/23/17 04/07/17 Melatonin 10 mg PO HS 03/23/17 04/07/17 Milk Thistle 480 mg PO BID 03/23/17 04/07/17 Previous Rx's Medication Instructions Recorded Aspirin 325 mg PO BID #60 tab 04/02/17 Docusate [Colace] 100 mg PO BID #60 capsule 04/02/17 oxyCODONE-APAP 5-325MG [Percocet 1 tab PO Q4HR PRN #90 tab 04/02/17 5-325 mg] Cephalexin [Keflex] 500 mg PO Q6HR #28 cap 04/07/17 Allergies Allergy/AdvReac Type Severity Reaction Status Date / Time amoxicillin trihydrate Allergy Rash/Hives Verified 04/07/17 15:25 [From Augmentin] lincomycin HCl Allergy Rash/Hives Verified 04/07/17 15:25 [From Lincocin] potassium clavulanate Allergy Rash/Hives Verified 04/07/17 15:25 [From Augmentin] procainamide Allergy Unknown Verified 04/07/17 15:25 tocainide [From Tonocard] Allergy Unknown Verified 04/07/17 15:25 avocado AdvReac CANKER Verified 04/07/17 15:25 SORES IN MOUTH tree nut [Pecan] AdvReac CANKER Verified 04/07/17 15:25 SORES IN MOUTH Review of Systems ROS Statement: Those systems with pertinent positive or pertinent negative responses have been documented in the HPI. Review of systems. No headache or visual acuity changes no chest pain just is a pulmonary fibrosis and is occasionally short of breath with exertion. No abdominal pain no nausea no vomiting no diarrhea. She recently had, approximately 9 days ago total left knee surgery. Since then she's had mild swelling. She been going to physical therapy was more difficult now because of significant swelling. His mild redness which is tender and hot medial aspect of the knee. Pitting edema from knee to foot. Patient states that she been off her HCTZ for a period of time and then just restarted it 2 days ago. All systems were reviewed. Past medical problems significant for rest cancer 2 years ago, diet-controlled diabetes mellitus. She also has GERD, hypertension for which takes verapamil and losartan. Also history of osteoarthritis pericarditis years ago with irregular heartbeat that has been controlled with the blood pressure medications he is taking. The patient's surgeries also include bilateral bunionectomies. Also recently total left knee, the patient's other surgeries include and cervical fusion. The patient's family history significant for a great aunt with breast cancer grandmother uterine cancer, some uncles with prostate cancer. Patient denies smoking now. Drink alcohol. ROS Other: All systems not noted in ROS Statement are negative. Past Medical History Past Medical History: Cancer, Diabetes Mellitus, GERD/Reflux, Hypertension, Osteoarthritis (OA) Additional Past Medical History / Comment(s): hx pericarditis, irregular heart rate with trigeminy,bigeminy, fx neck C2- limited movement of neck wears neck collar, need assistance getting up and down also has hx falls r/t mobility, elevated liver enzymes, hx breast cancer History of Any Multi-Drug Resistant Organisms: None Reported Past Surgical History: Breast Surgery, Section, Orthopedic Surgery Additional Past Surgical History / Comment(s): cervical fusion c-2, lt breast lumpectomy, lt knee meniscus repair, vocal cord surgery x3, bunionectomy rt foot , cataracts, lasik Past Anesthesia/Blood Transfusion Reactions: Postoperative Nausea & Vomiting ( PONV) Past Psychological History: Anxiety, Depression Smoking Status: Never smoker Past Alcohol Use History: Daily Additional Past Alcohol Use History / Comment(s): COUPLE GLASSES WINE DAILY Past Drug Use History: None Reported - Past Family History Brother(s) Family Medical History: Cancer Additional Family Medical History / Comment(s): prostate General Exam - General Exam Comments Initial Comments: General: The patient is awake and alert, playing of significant swelling to the point where physical therapy on her recent total left knee is too difficult to perform. She is suspicious of a DVT. She had a negative DVT study 5 days ago but she states since then becoming more swollen and more tender. Also localized redness to the medial aspect of the knee. Vital signs shows temperature 98.4 pulse 79 respiratory rate 20 pulse ox 91% on room air she does have a history of pulmonary fibrosis. Patient is not complaining of being dyspneic. Blood pressure 132/70 Eye: Pupils are equal, round and reactive to light, extra-ocular movements are intact ; there is normal conjunctiva bilaterally. No signs of icterus. Neck: The neck is supple, there is no tenderness . Cardiovascular: There is a regular rate and rhythm. No murmur, rub or gallop is appreciated. Respiratory: Lungs are clear to auscultation, pulmonary fibrosis more evident on the left side than the right side. Gastrointestinal: Soft, non-distended, non-tender abdomen without masses or organomegaly noted. There is no rebound or guarding present. No CVA tenderness. Bowel sounds are unremarkable. Back: No complaint of back pain. Musculoskeletal: Recent total left knee surgery, 9 days ago. The wound is healing well. She does have significant swelling from her surgery to her feet. Vascular status is intact. Pitting edema noted. Some areas of redness which are warm and tender. Neurological: No complaint of any focal or lateralizing findings. Skin: Tender redness around the left knee. Limitations: no limitations Course Vital Signs 04/07/17 15:22 Temperature 98.4 F Pulse Rate 79 Respiratory 20 Rate Blood Pressure 132/70 O2 Sat by Pulse 91 L Oximetry Medical Decision Making - Medical Decision Making Rectal decision making the patient's white count 6.1 hemoglobin 9.5 hematocrit 29.5 this is a gram better than it was recently. The patient's potassium is 4.3 BUN 15 creatinine 0.6 and GFR greater than 60. Glucose 109. AST ALT mildly elevated. Ultrasound of the leg was done and reviewed by radiologist his impression is negative for DVT. No sound evidence for acute DVT in left lower leg. As read by Dr. alonso The patient will be aced on cephalexin 500 4 times a day advised to follow-up with her family doctor and her surgeon. Keep leg elevated. Continue flexing and relaxing the muscles of the leg. - Lab Data Result diagrams: 04/07/17 16:10 04/07/17 16:10 Lab Results 04/07/17 04/07/17 Range/Units 16:10 16:10 WBC 6.1 (3.8-10.6) k/uL RBC 3.25 L (3.80-5.40) m/uL Hgb 9.5 L (11.4-16.0) gm/dL Hct 29.5 L (34.0-46.0) % MCV 90.9 (80.0-100.0) fL MCH 29.3 (25.0-35.0) pg MCHC 32.2 (31.0-37.0) g/dL RDW 16.1 H (11.5-15.5) % Plt Count 216 (150-450) k/uL Neutrophils % (Manual) 68.0 % Band Neutrophils % 1.0 % Lymphocytes % (Manual) 20.0 % Monocytes % (Manual) 9.0 % Eosinophils % (Manual) 2.0 % Neutrophils # (Manual) 4.2 (1.3-7.7) k/uL Lymphocytes # (Manual) 1.2 (1.0-4.8) k/uL Monocytes # (Manual) 0.5 (0-1.0) k/uL Eosinophils # (Manual) 0.1 (0-0.7) k/uL Nucleated RBCs 0 (0-0) /100 WBC Manual Slide Review Performed Hypochromasia Moderate Anisocytosis Slight Sodium 138 (137-145) mmol/L Potassium 4.3 (3.5-5.1) mmol/L Chloride 101 (98-107) mmol/L Carbon Dioxide 28 (22-30) mmol/L Anion Gap 9 mmol/L BUN 15 (7-17) mg/dL Creatinine 0.60 (0.52-1.04) mg/dL Est GFR (MDRD) Af Amer >60 (>60 ml/min/1.73 sqM) Est GFR (MDRD) Non-Af >60 (>60 ml/min/1.73 sqM) Glucose 109 H (74-99) mg/dL Calcium 9.2 (8.4-10.2) mg/dL Total Bilirubin 0.6 (0.2-1.3) mg/dL AST 83 H (14-36) U/L ALT 60 H (9-52) U/L Alkaline Phosphatase 119 (38-126) U/L Total Protein 6.7 (6.3-8.2) g/dL Albumin 3.5 (3.5-5.0) g/dL Disposition Clinical Impression: Postoperative stiffness of total knee replacement Disposition: HOME SELF-CARE Condition: Fair Instructions: Precautions after Total Joint Replacement Surgery (ED) Additional Instructions: Keep leg elevated continue to flex and relax Muscles. Continue with home medications including cephalexin 500 4 times a day for one week. Follow-up with your family doctor and orthopedic surgeon within the next several days or return emergency room as needed. Take Tylenol for fever Prescriptions: Cephalexin [Keflex] 500 mg PO Q6HR #28 cap Referrals: Jacki Curtis DO [Primary Care Provider] - 1-2 days Time of Disposition: 17:20
[2017-04-07 16:20] LABS: Anisocytosis Slight; Aty Lym Flag Slight; CH 28.3; CHCM 31.2; HCT 29.5 % (34.0-46.0); HDW 3.05; HGB 9.5 gm/dL (11.4-16.0); Hypochromasia Moderate; MCH 29.3 pg (25.0-35.0); MCHC 32.2 g/dL (31.0-37.0); MCV 90.9 fL (80.0-100.0); Mean Platelet Volume 6.8; RBC 3.25 m/uL (3.80-5.40); RDW 16.1 % (11.5-15.5); WBC 6.1 k/uL (3.8-10.6)
[2017-04-07 16:35] LABS: ALT 60 U/L (9-52); AST 83 U/L (14-36); Alkaline Phosphatase 119 U/L (38-126); Anion Gap 9 mmol/L; Blood Urea Nitrogen 15 mg/dL (7-17); Calcium 9.2 mg/dL (8.4-10.2); Carbon Dioxide 28 mmol/L (22-30); Chloride 101 mmol/L (98-107); Glucose 109 mg/dL (74-99); Non-African American GFR(MDRD) >60 (>60 ml/min/1.73 sqM); Potassium 4.3 mmol/L (3.5-5.1); Sodium 138 mmol/L (137-145); Total Bilirubin 0.6 mg/dL (0.2-1.3); Total Protein 6.7 g/dL (6.3-8.2)
[2017-04-07 16:40] LABS: Add Differential Manual Differential
[2017-04-07 16:42] LABS: Manual Review Performed; Nucleated Red Blood Cells 0 /100 WBC (0-0); Total Cells Counted 100
--- NOTE | 2017-04-07 16:50 | US ---
EXAMINATION TYPE: US venous doppler duplex LE LT DATE OF EXAM: 04/07/2017 4:34 PM COMPARISON: Recent left knee venous ultrasound April 02, 2017. CLINICAL HISTORY: Pain. post total knee done 03/29/2017 SIDE PERFORMED: Left TECHNIQUE: The lower extremity deep venous system is examined utilizing real time linear array sonog john with graded compression, doppler sonography and color-flow sonography. VESSELS IMAGED: External Iliac Vein (EIV) Common Femoral Vein Deep Femoral Vein Greater Saphenous Vein * Femoral Vein Popliteal Vein Small Saphenous Vein * Proximal Calf Veins (* superficial vessels) Left Leg: Negative for DVT Grayscale, color doppler, spectral doppler imaging performed of the deep veins of the left lower extr emity. There is normal flow, compressibility, vascular waveforms in the left leg. Mild subcutaneous edema below knee at the posterior tibial vein level is redemonstrated. IMPRESSION: No ultrasound evidence for acute DVT in the left lower extremity.
[2017-04-07] MEDS ORDERED: CEPHALEXIN 500MG STARTER PACK 4 CAP BTL PO STA (17:17)
[2017-04-07 17:47] VITALS: BP 135/74; PULSE 66; RESP 18; TEMP 97.7
== END 2017-04-07 17:45 | disposition home or self-care (01) ==
LOC: EC 15:19
DX: T81.89XA Other complications of procedures, not elsewhere classified, initial encounter (principal); M25.662 Stiffness of left knee, not elsewhere classified; R74.0 Nonspecific elevation of levels of transaminase and lactic acid dehydrogenase [LDH]; I10 Essential (primary) hypertension; F32.9 Major depressive disorder, single episode, unspecified; F41.9 Anxiety disorder, unspecified; Z79.51 Long term (current) use of inhaled steroids; Z79.899 Other long term (current) drug therapy; Z88.0 Allergy status to penicillin; Z88.1 Allergy status to other antibiotic agents; Z88.8 Allergy status to other drugs, medicaments and biological substances; Z91.018 Allergy to other foods; Z96.652 Presence of left artificial knee joint; Z85.3 Personal history of malignant neoplasm of breast; Z98.890 Other specified postprocedural states
CPT/HCPCS: 36415; 80053; 85025; 99284

== ENCOUNTER 2017-04-20 16:37 | Inpatient (IN) | payer MEDICARE, OTHER ==
[2017-04-20] MEDS ORDERED: BISACODYL 10 MG SUPP RECTAL PRN (16:41)
[2017-04-20] MEDS ORDERED: NA PHOS,M-B/NA PHOS,DI-BA 133 ML ENEMA RECTAL PRN (16:41)
[2017-04-20] MEDS ORDERED: ONDANSETRON 4 MG/2 ML VIAL IVP PRN (16:41)
[2017-04-20] MEDS ORDERED: ACETAMINOPHEN TAB 325 MG TAB PO PRN (16:41)
[2017-04-20] MEDS ORDERED: NALOXONE 0.4 MG/ML 1 ML VIAL IV PRN (16:41)
[2017-04-20] MEDS ORDERED: HYDROcodone/APAP 10-325MG 1 EACH TAB PO PRN ×2 (16:41)
[2017-04-20] MEDS ORDERED: MAGNESIUM HYDROXIDE 2,400 MG/10 ML CUP PO PRN (16:41)
[2017-04-20] MEDS ORDERED: traMADol 50 MG TAB PO PRN (16:41)
[2017-04-20] MEDS ORDERED: IV VANCOMYCIN PER PHARMACY 1 EACH MISC MISCELLANE ONE (17:00)
[2017-04-20] MEDS: VANCOMYCIN 1,500 MG in SODIUM CHLORIDE 0.9% 250 ML IVPB SCH (18:23)
[2017-04-20 18:47] LABS: ALT 58 U/L (9-52); AST 75 U/L (14-36); Alkaline Phosphatase 164 U/L (38-126); Anion Gap 12 mmol/L; Blood Urea Nitrogen 22 mg/dL (7-17); Calcium 9.3 mg/dL (8.4-10.2); Carbon Dioxide 26 mmol/L (22-30); Chloride 100 mmol/L (98-107); Glucose 113 mg/dL (74-99); Non-African American GFR(MDRD) >60 (>60 ml/min/1.73 sqM); Potassium 3.8 mmol/L (3.5-5.1); Sodium 138 mmol/L (137-145); Total Bilirubin 0.9 mg/dL (0.2-1.3); Total Protein 7.4 g/dL (6.3-8.2)
[2017-04-20] MEDS ORDERED: oxyCODONE-APAP 7.5-325MG 1 EACH TAB PO PRN (20:10)
[2017-04-20] MEDS: DIAZEPAM 5 MG TAB PO PRN (20:43)
[2017-04-20] MEDS ORDERED: MILK THISTLE PO SCH (21:00)
[2017-04-20] MEDS ORDERED: TEMAZEPAM 15 MG CAP PO PRN (21:00)
[2017-04-20] MEDS ORDERED: diphenhydrAMINE 25 MG CAP PO STA ×2 (22:08→22:25)
[2017-04-20] MEDS: HYDROmorphone 1 MG/ML 1 ML SYRINGE IVP PRN (22:28)
[2017-04-20 22:33] LABS: Glucose,Whole Blood 132 mg/dL (75-99)
[2017-04-20] MEDS: ASPIRIN 325 MG TAB PO SCH (22:33)
[2017-04-20] MEDS: MELATONIN 5 MG TABLET PO SCH (22:33)
[2017-04-20] MEDS: SENNOSIDES-DOCUSATE SODIUM 1 EACH TAB PO SCH (22:34)
[2017-04-20 23:32] LABS: Anisocytosis Slight; Basophils # (A) 0.1 k/uL (0-0.2); Basophils % (A) 1 %; CH 28.4; CHCM 29.6; Eosinophils # (A) 0.7 k/uL (0-0.7); Eosinophils % (A) 9 %; HCT 36.9 % (34.0-46.0); HDW 2.49; HGB 11.1 gm/dL (11.4-16.0); Hypochromasia Marked; Luc # (Auto) 0.17; Luc % (Auto) 2; Lymphocytes # (A) 1.5 k/uL (1.0-4.8); Lymphocytes % (A) 20 %; MCH 29.1 pg (25.0-35.0); MCHC 30.2 g/dL (31.0-37.0); MCV 96.3 fL (80.0-100.0); Macrocytosis Slight; Mean Platelet Volume 7.2; Monocytes # (A) 0.5 k/uL (0-1.0); Monocytes % (A) 7 %; Neutrophils # (A) 4.9 k/uL (1.3-7.7); Neutrophils % (A) 63 %; RBC 3.83 m/uL (3.80-5.40); RDW 16.5 % (11.5-15.5); WBC 7.9 k/uL (3.8-10.6); WBC (Perox) 8.56
--- NOTE | 2017-04-20 23:36 | P.PN ---
Progress Note - Text The patient is a very anxious 66-year-old female who was admitted with cellulitis in her left leg 3 weeks following a total knee replacement. The patient is under the care of Dr. Sudarshan Collado. Briefly, the patient was seen in the office by Dr. Collado earlier today. There was concern about superficial cellulitis so she was sent as a direct admission to the orthopedics floor. The patient was seen by Dr. Collado today at 4 PM. I received a call at 11 PM tonjose regarding this patient. Apparently she was concern that there been multiple changes in the appearance of her leg and was demanding to be seen by a physician. She threatened to leave AMA if she was not seen immediately by a physician. I spoke with the patient over the phone. I tried to assure her that there was nothing wrong with her knee and that she was on appropriate antibiotics. The patient threatened that "if she went down and she was taking me down with her." Due to multiple threats to the staff and myself over the phone I agreed to come in and examine her leg. At the time of my evaluation tonight the patient was extremely anxious. She states that anterior aspect of her left knee looks slightly pink compared to when she saw Dr. Collado today. She is concerned that things are drastically changed. She denies fevers, chills , or feelings of generalized malaise. She is able to move her left knee without too much difficulty. She says she is able to walk. On examination of the left knee there is a healing incision over the anterior aspect of the knee. There is mild erythema but minimal warmth and no palpable fluctuance or crepitance. She has minimal discomfort with gentle passive range of motion of the knee. She has a minimal effusion. Distally she is neurovascularly intact and has no pain with passive range of motion of her ankles and her toes. I see no signs concerning for deep infection or limb threatening infection that needs to be addressed surgically tonight. I reassured her that she is on appropriate broad-spectrum antibiotics and that she will be seen over the weekend by an infectious disease doctor to answer her many questions. I also reassured her that Dr. Collado is planning on seeing her in the morning. The patient was able to settle down and promised me she would keep her leg covered with a blanket and try to get some rest.
[2017-04-20] MEDS: INSULIN LISPRO (humaLOG) 300 UNIT/3 ML VIAL SQ SCH (23:49)
[2017-04-20] MEDS: TEMAZEPAM 15 MG CAP PO SCH (23:50)
[2017-04-21] MEDS ORDERED: ALPRAZolam 0.25 MG TAB PO PRN (00:21)
[2017-04-21 01:06] LABS: Hemoglobin A1C 5.2 % (4.2-6.1)
[2017-04-21] MEDS: HYDROmorphone 1 MG/ML 1 ML SYRINGE IVP PRN ×3 (02:23→23:01)
[2017-04-21] MEDS: hydrOXYzine PAMOATE 25 MG CAP PO PRN ×5 (02:28→22:04)
[2017-04-21] MEDS: diphenhydrAMINE 25 MG CAP PO PRN (05:27)
[2017-04-21] MEDS: VANCOMYCIN 1,500 MG in SODIUM CHLORIDE 0.9% 250 ML IVPB SCH ×2 (05:28→18:10)
[2017-04-21 07:13] LABS: Anisocytosis Slight; Basophils # (A) 0.1 k/uL (0-0.2); Basophils % (A) 1 %; CH 28.2; CHCM 29.9; Eosinophils # (A) 0.7 k/uL (0-0.7); Eosinophils % (A) 13 %; HCT 33.4 % (34.0-46.0); HDW 2.48; Hypochromasia Marked; Luc # (Auto) 0.13; Luc % (Auto) 2; Lymphocytes # (A) 1.4 k/uL (1.0-4.8); Lymphocytes % (A) 25 %; MCH 28.3 pg (25.0-35.0); MCHC 29.9 g/dL (31.0-37.0); MCV 94.7 fL (80.0-100.0); Mean Platelet Volume 6.7; Monocytes # (A) 0.4 k/uL (0-1.0); Monocytes % (A) 7 %; Neutrophils % (A) 53 %; RBC 3.53 m/uL (3.80-5.40); RDW 16.6 % (11.5-15.5); WBC 5.8 k/uL (3.8-10.6); WBC (Perox) 5.94
[2017-04-21 07:33] LABS: ALT 48 U/L (9-52); AST 64 U/L (14-36); Alkaline Phosphatase 141 U/L (38-126); Anion Gap 10 mmol/L; Blood Urea Nitrogen 16 mg/dL (7-17); C Reactive Protein 15.3 mg/L (<10.0); Carbon Dioxide 26 mmol/L (22-30); Chloride 102 mmol/L (98-107); Glucose 102 mg/dL (74-99); Non-African American GFR(MDRD) >60 (>60 ml/min/1.73 sqM); Potassium 4.1 mmol/L (3.5-5.1); Rheumatoid Factor, Qnt <9 IU/mL (<12); Sodium 138 mmol/L (137-145); Total Protein 6.4 g/dL (6.3-8.2)
[2017-04-21] MEDS: INSULIN LISPRO (humaLOG) 300 UNIT/3 ML VIAL SQ SCH ×4 (08:13→23:00)
[2017-04-21] MEDS: ALBUTEROL NEBULIZED 2.5 MG/3 ML INHALATION PRN ×2 (08:18→12:19)
[2017-04-21] MEDS ORDERED: FUROSEMIDE 10 MG/ML 4 ML VIAL IV SCH (09:00)
[2017-04-21] MEDS ORDERED: NON-FORMULARY DRUG (Iron [Iron] 18 MG) PO SCH (09:00)
[2017-04-21] MEDS ORDERED: NON-FORMULARY DRUG (Biotin [Biotin] 10,000 MCG) PO SCH (09:00)
--- NOTE | 2017-04-21 09:11 | CONS ---
DATE OF CONSULTATION: 04/20/2017 REASON FOR CONSULTATION: Advice regarding diabetes and multiple other medical problems, requested by Dr. Kahn. HISTORY OF PRESENT ILLNESS: This 66-year-old woman with a past medical history of multiple medical problems including history of diabetes type 2, history of GERD, hypertension, history of DJD, heart disease, history of diffuse arthritis, history of breast surgery, anxiety, depression, being followed by Dr. Vasquez in the outpatient setting, underwent left knee joint arthroplasty about 3 weeks ago. Subsequently patient went to [facility] for rehabilitation. During rehabilitation, the patient noticed some red bumps on the left leg which increased and became purple colored and subsequently became cellulitic and also the patient also had swelling also. The patient also noticing swelling and pain of the right leg also. The patient went to [facility] office and the patient admitted with direct admission at this time. There is no history of fever, rigors or chills. No history of headache, loss of consciousness or seizures. The patient also complaining of numbness in both legs, and as well as the tip of the right hand also. The patient also had cervical neck issues according to her also. The patient has severe arthritis as mentioned earlier. There is no history of any fever, rigors or chills. No history of headache, loss of consciousness or seizures. The exact etiology of arthritis is unknown according to her. The patient also seen by Dr. Kahn today and please note Dr. Kahn's dictation for further details. PAST MEDICAL HISTORY: History of diabetes, history of gastroesophageal reflux disease, hypertension, degenerative joint disease, history of pericardial irregular heart rhythm, history of anxiety, depression. Medications, home medications are: 1. Diovan 160 milligrams p.o. daily. 2. Restoril 50 mg q.6h p.r.n. 4. Melatonin 10 mg q.h.s. 5. Magnesium 250 mg p.o. daily. 6. Iron 18 milligrams p.o. daily. 7. HydroDIURIL 25 mg p.o. daily. 8. Flonase one spray daily. 9. Colace 100 mg p.o. daily. 10. Cymbalta 60 mg daily. 13. Biotin 10,000 mcg p.o. daily. 14. Zebec 1 p.o. daily. 15. Aspirin 320 mg daily. 16. Albuterol 2 puffs q.i.d. p.r.n. ALLERGIES: AMOXICILLIN, VANCOMYCIN, AUGMENTIN, PROCAINAMIDE, AVOCADO, PECAN. FAMILY HISTORY: History of prostate cancer in the family. SOCIAL HISTORY: No history of smoking. Occasional alcohol intake. REVIEW OF SYSTEMS: ENT: No diminishing hearing. No diminished vision. CARDIOVASCULAR: No angina, palpitations. RESPIRATORY SYSTEM: No coughing. GI: No nausea. : No dysuria. Nervous system: No numbness, weakness. ALLERGY/IMMUNOLOGY: As mentioned earlier. Hematology/Oncology: No history of anemia. ENDOCRINE: As mentioned earlier. CONSTITUTIONAL: As mentioned earlier. RHEUMATOLOGY: As mentioned earlier. MUSCULOSKELETAL: As mentioned earlier. PSYCHIATRY: As mentioned earlier. PHYSICAL EXAMINATION: The patient is alert and oriented times three. Pulse 90. Blood pressure 140/69, respirations 16, temperature 97.4, pulse ox 97% on room air. HEENT: Conjunctivae normal. Oral mucosa moist. NECK: No jugular distention. No carotid bruit. No lymph node enlargement. CARDIOVASCULAR: S1, S2 muffled. No S3, no S4. RESPIRATORY: Breath sound diminished at the bases. No rhonchi, no crackles. ABDOMEN: Soft and nontender. No mass palpable. No hepatosplenomegaly. Legs: Status post recent left total knee arthroplasty, significant swelling and redness, erythema, tenderness in the left lower leg present. Right leg also had erythema and tenderness also present and ecchymosis also present. Area of ecchymosis, possibly secondary to trauma, recent trauma. 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 Joints: As mentioned earlier. LYMPHATICS: No lymph nodes palpable in the neck, axillae or groin. Nervous system: Higher functions as mentioned earlier. Moves all four limbs. No focal motor or sensory deficits. Sensation diminished in both legs, below the knees. LAB INVESTIGATIONS: WBC 7.3, hemoglobin 11.1. Otherwise, glucose 113, AST 75, ALT 58. Alkaline phosphatase 164. ASSESSMENT: 1. Acute cellulitis of bilateral legs, left more than the right. 2. History of recent left total knee arthroplasty. 3. Increased AST, ALT, rule out acute hepatitis. 4. History of diabetes type 2. 5. History of gastroesophageal reflux disease. 6. Hypertension. 7. History of history of degenerative joint disease. 8. History of pericarditis. 9. History of irregular cardiac rhythm with a trigeminy bigeminy. 10. History of fracture neck C2 with limited movements. 11. History of possible peripheral neuropathy. 12. History of breast cancer. 13. History of section. 14. History of cervical fusion. 15. History of anxiety, depression, not otherwise specified. 16. FULL CODE. RECOMMENDATIONS AND DISCUSSION: In this 66-year-old woman who presented with the multiple complex medical issues, we will monitor the patient closely. Continue the current medications. Continue symptomatic. Otherwise, at this time, I recommend broad-spectrum IV antibiotics. Obtain the cultures. Baseline labs. Resume the home medications. Infectious disease has been consulted. Otherwise, closely follow with infectious disease and orthopedic surgery. Further recommendations to follow. MTDD
--- NOTE | 2017-04-21 09:19 | XR ---
EXAMINATION TYPE: XR chest 1V portable DATE OF EXAM: 04/21/2017 HISTORY: chf. REFERENCE: NONE. FINDINGS: There has been a previous anterior and posterior fusion of the lower cervical spine. The lungs appear clear. Pleural space are clear. The heart is not enlarged. IMPRESSION: NO ACUTE INTRATHORACIC ABNORMALITY.
[2017-04-21] MEDS: ASPIRIN 325 MG TAB PO SCH ×2 (09:45→20:23)
[2017-04-21] MEDS: FLUTICASONE 50MCG/SPRAY NASAL 16GM EA NOSTRIL SCH (09:45)
[2017-04-21] MEDS: MULTIVITAMINS, THERA 1 EACH TAB PO SCH (09:46)
[2017-04-21] MEDS: MAGNESIUM OXIDE 400 MG TAB PO SCH (09:46)
[2017-04-21] MEDS: B COMPLEX-VIT C-VIT E-ZINC 1 EACH TAB PO SCH (09:46)
[2017-04-21] MEDS: LORATADINE 10 MG TAB PO SCH (09:46)
[2017-04-21] MEDS: DULoxetine HCL 60 MG CAPSULE.DR PO SCH (09:46)
[2017-04-21] MEDS: VALSARTAN 160 MG TAB PO SCH (09:46)
[2017-04-21 10:03] LABS: Erythrocyte Sedimentation Rate 31 mm/hr (0-20)
--- NOTE | 2017-04-21 10:47 | P.HPOR ---
History of Present Illness H&P Date: 04/21/17 This is a well-appearing 66-year-old female who is admitted for cellulitis to lower extremity. Patient has a history of total knee arthroplasty 3 weeks ago. Patient states she has noticed increased redness and swelling to the left lower extremity that started on 04/18/2017. Patient states that at physical therapy on she noticed increasing difficulty with knee flexion. Patient also reports increased pain of the left knee. Patient denies any numbness/weakness/tingling to the left lower extremity or fever/chills. Review of Systems See HPI. Past Medical History Past Medical History: Cancer, Diabetes Mellitus, GERD/Reflux, Hypertension, Osteoarthritis (OA) Additional Past Medical History / Comment(s): hx pericarditis, irregular heart rate with trigeminy,bigeminy, fx neck C2- limited movement of neck wears neck collar, need assistance getting up and down also has hx falls r/t mobility, elevated liver enzymes, hx breast cancer History of Any Multi-Drug Resistant Organisms: None Reported Past Surgical History: Breast Surgery, Section, Orthopedic Surgery Additional Past Surgical History / Comment(s): cervical fusion c-2, lt breast lumpectomy, lt knee meniscus repair, vocal cord surgery x3, bunionectomy rt foot , cataracts, lasik Past Anesthesia/Blood Transfusion Reactions: Postoperative Nausea & Vomiting ( PONV) Past Psychological History: Anxiety, Depression Smoking Status: Never smoker Past Alcohol Use History: Daily Additional Past Alcohol Use History / Comment(s): COUPLE GLASSES WINE DAILY Past Drug Use History: None Reported - Past Family History Brother(s) Family Medical History: Cancer Additional Family Medical History / Comment(s): prostate Medications and Allergies Home Medications Medication Instructions Recorded Confirmed Type Temazepam [Restoril] 15 mg PO HS 05/14/15 04/20/17 History Albuterol Sulfate [Proair Hfa] 2 puff INHALATION RT-QID PRN 02/08/17 04/20/17 History Cetirizine HCl [Zyrtec] 10 mg PO DAILY 02/08/17 04/20/17 History DULoxetine HCL [Cymbalta] 60 mg PO DAILY 02/08/17 04/20/17 History Fluticasone Nasal [place] [Flonase 1 spray EA NOSTRIL DAILY 02/08/17 04/20/17 History Nasal [place]] B Complex-Vit C-Vit E-Zinc [Z-Bec] 1 tab PO DAILY 03/23/17 04/20/17 History Biotin 10,000 mcg PO DAILY 03/23/17 04/20/17 History Iron 18 mg PO DAILY 03/23/17 04/20/17 History Magnesium Oxide [Magnesium] 250 mg PO DAILY 03/23/17 04/20/17 History Melatonin 10 mg PO HS 03/23/17 04/20/17 History Milk Thistle 480 mg PO BID 03/23/17 04/20/17 History Cephalexin [Keflex] 500 mg PO QID 04/20/17 04/20/17 History Hydrochlorothiazide [Hydrodiuril] 25 mg PO DAILY 04/20/17 04/20/17 History Valsartan [Diovan] 160 mg PO DAILY 04/20/17 04/20/17 History Allergies Allergy/AdvReac Type Severity Reaction Status Date / Time amoxicillin trihydrate Allergy Rash/Hives Verified 04/07/17 15:25 [From Augmentin] lincomycin HCl Allergy Rash/Hives Verified 04/07/17 15:25 [From Lincocin] potassium clavulanate Allergy Rash/Hives Verified 04/07/17 15:25 [From Augmentin] procainamide Allergy Unknown Verified 04/07/17 15:25 tocainide [From Tonocard] Allergy Unknown Verified 04/07/17 15:25 avocado AdvReac CANKER Verified 04/07/17 15:25 SORES IN MOUTH tree nut [Pecan] AdvReac CANKER Verified 04/07/17 15:25 SORES IN MOUTH Physical Examination On exam patient is alert and oriented 3 and vital signs are stable. Examination of the head and neck reveals no obvious deformity. Patient states she has chronic neck pain due to history of C2 fusion. There is mild tenderness to palpation of the cervical midline but patient states this is chronic for her. Examination of bilateral upper extremity reveals no obvious deformity or pain with range of motion. Patient has limited range of motion of bilateral upper extremities due to chronic pain. No swelling, erythema or ecchymosis of bilateral upper extremities. Neurovascular status to bilateral upper extremities is intact. Left lower extremity: There is a healed incision over the anterior aspect of the left knee with mild surrounding erythema. No open wound or drainage from the area. Patient has generalized tenderness to palpation of the left knee. There is mild erythema and swelling of the lower left leg, but calf is soft and nontender. Neurovascular status to the left lower extremity is intact. Patient has full foot and ankle motion. Right lower extremity: Patient has full range of motion of the left lower extremity. There is no tenderness of the left lower extremity. Calf is soft and nontender. Neurovascular status is intact. Results - Labs Labs: Abnormal Lab Results - Last 24 Hours (Table) 04/20/17 04/20/17 04/20/17 Range/Units 17:53 20:37 22:31 RBC (3.80-5.40) m/uL Hgb 11.1 L (11.4-16.0) gm/dL Hct (34.0-46.0) % MCHC 30.2 L (31.0-37.0) g/dL RDW 16.5 H (11.5-15.5) % ESR (0-20) mm/hr BUN 22 H (7-17) mg/dL Glucose 113 H (74-99) mg/dL POC Glucose (mg/dL) 132 H (75-99) mg/dL AST 75 H (14-36) U/L ALT 58 H (9-52) U/L Alkaline Phosphatase 164 H (38-126) U/L C-Reactive Protein (<10.0) mg/L Albumin (3.5-5.0) g/dL 04/21/17 04/21/17 Range/Units 05:58 05:58 RBC 3.53 L (3.80-5.40) m/uL Hgb 10.0 L (11.4-16.0) gm/dL Hct 33.4 L (34.0-46.0) % MCHC 29.9 L (31.0-37.0) g/dL RDW 16.6 H (11.5-15.5) % ESR 31 H (0-20) mm/hr BUN (7-17) mg/dL Glucose 102 H (74-99) mg/dL POC Glucose (mg/dL) (75-99) mg/dL AST 64 H (14-36) U/L ALT (9-52) U/L Alkaline Phosphatase 141 H (38-126) U/L C-Reactive Protein 15.3 H (<10.0) mg/L Albumin 3.4 L (3.5-5.0) g/dL H & H 04/20/17 04/21/17 Range/Units 20:37 05:58 Hgb 11.1 L 10.0 L (11.4-16.0) gm/dL Hct 36.9 33.4 L (34.0-46.0) % Result Diagrams: 04/21/17 05:58 04/21/17 05:58 Assessment and Plan (1) Cellulitis Status: Acute (2) Status post total left knee replacement Status: Acute Plan: #1. Consult to infectious disease. #2. Continue IV vancomycin and pain control. #3. Appreciate input from internal medicine. #4. Will follow the patient closely.
[2017-04-21] MEDS ORDERED: NYSTAT-TRIAMCIN 100,000-0.1 UNIT/GM-% CREAM 30 GM TUBE TOPICAL SCH (12:00)
--- NOTE | 2017-04-21 13:30 | CONS ---
DATE OF CONSULTATION: 04/21/2017 REASON FOR CONSULTATION: Bilateral lower extremity cellulitis. HISTORY OF PRESENT ILLNESS: The patient is a 66-year-old female who is status post left knee arthroplasty done by Dr. Collado 03/29/2017. Postoperative the patient was sent to rehab. The patient said when she was in rehab she had significant swelling of her left leg and it was bruised as well. Subsequently she may have developed some redness for which the patient was treated as an outpatient by private care physician with oral cephalexin for 2 weeks. The patient was evaluated. Patient's symptoms to the leg are more of a burning and itching, which she has been scratching. She says she has been ( ) over the bed in the morning and some blood on her sheets. She was evaluated by Dr. Collado in the office yesterday with concern for possible cellulitis. She has been admitted to the hospital last evening and was started on vancomycin. Patient did mention that she was having some pain in the knee, especially when she walks on it, about 5 out of 10; however, she noticed some redness on the lower portion of the incision last evening. The area is slightly tender to touch, lying or sitting in the chair. No significant pain. The patient denies any fever or chills. Denies any significant chest pain or shortness of breath. Breathing is baseline because of underlying pulmonary fibrosis. Occasional cough, not bringing up any sputum. The patient has been treated with vancomycin. ID was consulted for further recommendation regarding antibiotic therapy. Patient with no fever and no elevated white count. REVIEW OF SYSTEMS: CONSTITUTIONAL: Positive for weakness and no fever. EYES: No complaint. ENT: No complaint. RESPIRATORY: As per HPI. CARDIOVASCULAR: No complaint. GENITOURINARY: No complaint. MUSCULOSKELETAL: As per HPI. PSYCHOLOGICAL: Frustration. No depression. ENDOCRINE: No complaint. NEUROLOGICAL: No complaint. PAST MEDICAL HISTORY: Significant for hypertension, osteoarthritis, diabetes mellitus diet controlled, ( ) C2 fracture, irregular heartbeat, breast cancer. PAST SURGICAL HISTORY: Breast surgery, , C2 spinal fusion, left breast lumpectomy, left knee meniscus repair, ( ) surgery x3, bunionectomy right foot, recent left knee arthroplasty 03/29/2017. SOCIAL HISTORY: Socially drinks. No smoking. No drug use. FAMILY HISTORY: Brother with history of prostate cancer. ALLERGIES: AMOXICILLIN, VANCOMYCIN, POTASSIUM, AUGMENTIN, PROCAINAMIDE. MEDICATIONS: 1. Tylenol. 2. Ventolin. 3. Xanax. 4. Aspirin. 5. Dulcolax. 6. Valium, 7. Benadryl. 8. Cymbalta. 9. Fluticasone. 10. Lasix. 11. Dilaudid. 12. Restoril. 13. Humalog. 14. Claritin. 15. Milk of Magnesia. 16. Mag oxide. 17. Zofran. 18. Percocet. 19. Senokot. 20. Restoril. 21. Diovan. 22. Vancomycin, pharmacy to dose. On examination, blood pressure is 145/77 with a pulse of 86, temperature is 98.1. No fever since admission to the hospital. She is 95% on room air. GENERAL DESCRIPTION: An elderly female up in the chair in no distress. No new complaints. no muscle of respiration use. HEENT: No scleral icterus. Oral mucosa dry. NECK: No JVD. LUNGS: Unlabored breathing. Clear to auscultation. HEART: S1, S2. Regular rate and rhythm. ABDOMEN: Soft, no tenderness. No guarding or rigidity. EXTREMITIES: No edema of the feet. Left leg seems to be slightly more swollen and red than the right leg. The area has been marked. Slightly warm to touch. She did have rash marked on marked on the left side. No evidence of athlete's foot. Knee with very minimal edema at the lower end of the incision. No significant swelling or any drainage was noticed. NEUROLOGICAL: The patient is awake, alert, oriented x3. Mood and affect normal. LABS: Hemoglobin is 10, white count 5.8 with a BUN of 13, creatinine 0.62. Electrolytes have been normal. Liver enzymes are slightly elevated. Cultures currently pending. DIAGNOSTIC IMPRESSION AND PLAN: 1. Patient with bilateral lower extremity swelling and redness of left leg, more than right. The patient's symptoms started with significant swelling to begin with and now with redness. The patient has been really scratching this area with a component of possible cellulitis versus dermatitis. Patient with no fever, no elevated white count, with very minimal edema of the incision noticed on the knee but no significant redness of the knee itself, clinically suspicious for underlying infection remains to be low. 2. Patient has a history of Augmentin allergy, was taking Keflex without any problems. PLAN: 1. In view of diffuse swelling and redness with a question of possible cellulitis, we will add cefazolin with addition of vancomycin. 2. Mycolog cream to the edematous portion of the leg, not to the knee. 3. Reggie the area of redness. 4. We will follow up on the clinical condition and cultures to further adjust the medication if needed. Thank you for this consultation. We will follow the patient along with you.
[2017-04-21] MEDS: ceFAZolin 2 GM in SODIUM CHLORIDE 0.9% 100 ML IVPB SCH ×2 (13:40→23:00)
[2017-04-21] MEDS: TRIAMCINOLONE 0.1% CREAM 80 GM TUBE TOPICAL SCH ×2 (13:40→20:23)
[2017-04-21] MEDS: NYSTATIN 100,000UNIT/GM CREAM 30 GM TUBE TOPICAL SCH ×2 (13:47→20:23)
--- NOTE | 2017-04-21 14:18 | PN ---
DATE OF VISIT: 04/21/2017 I saw Elsa today at the bedside. She is resting comfortably. She is eating lunch. She has still with complaints of itchiness in bilateral lower extremities. VITAL SIGNS: She is afebrile. Vital signs are stable. LABORATORIES: Today white count 5.8, hemoglobin 10.0, platelets 197. ESR is 31. PHYSICAL EXAMINATION: On examination, Elsa still has cellulitis of the left lower extremity in a stocking-like distribution. It has been marked. It does seem to be improving slightly from when I saw her in the office yesterday. She does have a small spot of redness and possible cellulitis on the right lower extremity as well. She has a small area of erythema around the incision. There is no effusion in the knee. She has full flexion and extension in the knee. No evidence of intra-articular infection about the knee. IMPRESSION: Acute cellulitis left lower extremity, status post left total knee arthroplasty approximately 3 weeks ago. RECOMMENDATIONS: I did admit Elsa yesterday. She was not improving on outpatient therapy for her cellulitis that she developed in the left foot and which had extended proximally in a stocking-like distribution. I did feel as if this was possibly going to progress if she continued to try to treat this as an outpatient. We did admit her directly to the hospital yesterday from my office. She been placed on IV vancomycin. Infectious Disease Service has seen her and has added IV Cefazolin to her regimen as well. I greatly appreciate their input. As of right now, the left knee appears benign. There is no evidence of deep infection. The incision is completely healed with no drainage. We will have Elsa continue to keep her left lower extremity elevated. She will continue with the IV antibiotic regimen. I did explain to her greatly the seriousness of treating this as aggressively as possible, given that she does have a fresh left total knee arthroplasty which was done 3 weeks ago. We will continue as per Infectious Disease recommendations. We will continue to monitor her left lower extremity. She may weight bear to tolerance on the left lower extremity. All of Elsa's questions were answered to her satisfaction at this time.
--- NOTE | 2017-04-21 21:21 | PN ---
DATE OF SERVICE: 04/21/2017 This 66 -year-old woman was admitted with acute cellulitis of the bilateral legs, also had recent knee surgery. The patient is being followed by orthopedic surgery, and as well as infectious disease. The patient is started on empiric antibiotics also. The patient has severe arthritis also. On exam, alert and oriented times three. Pulse 91. Blood pressure 109/70. Respiratory rate 16, temperature 98 degrees, pulse ox 94% on room air. HEENT: Conjunctivae normal. NECK: No jugular venous distention. CARDIOVASCULAR: S1, S2 muffled. RESPIRATORY: Breath sounds diminished at the bases. No rhonchi, no crackles. ABDOMEN: Soft. Nontender. No mass palpable. LEGS: Bilateral leg cellulitis, left more than the right. CENTRAL NERVOUS SYSTEM: No focal deficits. LABS: WBC 5.5, Hemoglobin 10, ESR is 31, CRP is 15.3. Rheumatoid factor is negative. ASSESSMENT: 1. Acute cellulitis of bilateral legs, left more than the right. 2. History of recent left total knee arthroplasty. 3. Increased AST, ALT, rule out acute hepatitis. 4. History of diabetes mellitus type 2. 5. History of gastroesophageal reflux disease. 6. Hypertension. 7. History for degenerative joint disease. 8. History of pericarditis. 9. History of irregular cardiac rhythm with bigeminy and trigeminy previously. 10. History of with limited movements. 11. History of possible peripheral neuropathy. 12. History of breast cancer. 13. History of section. 14. History of cervical fusion. 15. History of anxiety, depression, not otherwise specified. 16. FULL CODE. RECOMMENDATIONS AND DISCUSSION: In this 66-year-old woman who presented with multiple complex medical issues, we will monitor the patient closely. Continue the current medications. Continue symptomatic treatment. Otherwise, at this time, I would recommend continue with the current antibiotic. Further recommendations to follow. The patient is on IV vancomycin and Cefazolin. Prognosis guarded. MTDD
[2017-04-21] MEDS: MELATONIN 5 MG TABLET PO SCH (22:04)
[2017-04-21] MEDS: TEMAZEPAM 15 MG CAP PO SCH (22:04)
[2017-04-21] MEDS: SENNOSIDES-DOCUSATE SODIUM 1 EACH TAB PO SCH (23:00)
[2017-04-22] MEDS: hydrOXYzine PAMOATE 25 MG CAP PO PRN ×4 (03:10→22:55)
[2017-04-22] MEDS: HYDROmorphone 1 MG/ML 1 ML SYRINGE IVP PRN ×4 (03:10→22:55)
[2017-04-22 07:15] LABS: Anisocytosis Slight; Basophils % (A) 1 %; CH 28.3; CHCM 29.7; Eosinophils # (A) 0.6 k/uL (0-0.7); Eosinophils % (A) 12 %; HDW 2.46; HGB 10.1 gm/dL (11.4-16.0); Hypochromasia Marked; Luc # (Auto) 0.15; Luc % (Auto) 3; Lymphocytes # (A) 1.3 k/uL (1.0-4.8); Lymphocytes % (A) 28 %; MCH 28.4 pg (25.0-35.0); MCHC 29.8 g/dL (31.0-37.0); MCV 95.4 fL (80.0-100.0); Mean Platelet Volume 6.8; Monocytes # (A) 0.3 k/uL (0-1.0); Monocytes % (A) 6 %; Neutrophils # (A) 2.3 k/uL (1.3-7.7); Neutrophils % (A) 50 %; RBC 3.56 m/uL (3.80-5.40); RDW 16.5 % (11.5-15.5); WBC 4.7 k/uL (3.8-10.6); WBC (Perox) 4.21
[2017-04-22 07:28] LABS: ALT 45 U/L (9-52); AST 67 U/L (14-36); Alkaline Phosphatase 130 U/L (38-126); Anion Gap 7 mmol/L; Blood Urea Nitrogen 15 mg/dL (7-17); Calcium 8.8 mg/dL (8.4-10.2); Carbon Dioxide 29 mmol/L (22-30); Chloride 105 mmol/L (98-107); Glucose 105 mg/dL (74-99); Non-African American GFR(MDRD) >60 (>60 ml/min/1.73 sqM); Potassium 4.4 mmol/L (3.5-5.1); Sodium 141 mmol/L (137-145); Total Bilirubin 0.8 mg/dL (0.2-1.3); Total Protein 6.5 g/dL (6.3-8.2)
[2017-04-22] MEDS: INSULIN LISPRO (humaLOG) 300 UNIT/3 ML VIAL SQ SCH ×4 (12:10→21:54)
[2017-04-22] MEDS: B COMPLEX-VIT C-VIT E-ZINC 1 EACH TAB PO SCH (12:10)
[2017-04-22] MEDS: LORATADINE 10 MG TAB PO SCH (12:10)
[2017-04-22] MEDS: DULoxetine HCL 60 MG CAPSULE.DR PO SCH (12:10)
[2017-04-22] MEDS: MAGNESIUM OXIDE 400 MG TAB PO SCH (12:10)
[2017-04-22] MEDS: ASPIRIN 325 MG TAB PO SCH ×2 (12:10→21:52)
[2017-04-22] MEDS: FLUTICASONE 50MCG/SPRAY NASAL 16GM EA NOSTRIL SCH (12:10)
[2017-04-22] MEDS: VANCOMYCIN 1,500 MG in SODIUM CHLORIDE 0.9% 250 ML IVPB SCH ×2 (12:10→18:27)
[2017-04-22] MEDS: NYSTATIN 100,000UNIT/GM CREAM 30 GM TUBE TOPICAL SCH ×3 (12:11→21:53)
[2017-04-22] MEDS: VALSARTAN 160 MG TAB PO SCH (12:11)
[2017-04-22] MEDS: TRIAMCINOLONE 0.1% CREAM 80 GM TUBE TOPICAL SCH ×3 (12:11→21:53)
[2017-04-22] MEDS: MULTIVITAMINS, THERA 1 EACH TAB PO SCH (12:13)
[2017-04-22] MEDS: ceFAZolin 2 GM in SODIUM CHLORIDE 0.9% 100 ML IVPB SCH ×2 (12:14→14:25)
--- NOTE | 2017-04-22 13:03 | P.PN ---
Subjective Principal diagnosis: Cellulitis left lower extremity This is a well-appearing 66-year-old female who is admitted for cellulitis of the left lower extremity. Patient has history of left total knee arthroplasty approximately 3 weeks ago. Patient states she still has some pain to the left knee along with itching to bilateral lower extremities. Otherwise patient states that she has been up and walking and has no further complaints. Patient denies any fever/chills, numbness/weakness/tingling. Objective - Vital Signs Vital signs: Vital Signs Temp 97.7 F 04/21/17 20:00 Pulse 83 04/21/17 20:00 Resp 20 04/22/17 00:00 BP 138/65 04/21/17 20:00 Pulse Ox 96 04/21/17 20:00 Intake & Output 04/21/17 04/21/17 04/22/17 06:59 18:59 06:59 Intake Total 680 1510 Balance 680 1510 Weight 79.379 kg Intake: IV 350 Vancomycin 1,500 mg In 250 Sodium Chloride 0.9% 250 ml @ 125 mls/hr IVPB Q12H [facility] Rx#:[id number] ceFAZolin 2 gm In Sodium 100 Chloride 0.9% 100 ml @ 100 mls/hr IVPB Q8HR [facility] Rx#:[id number] Oral 680 1160 Other: # Voids 1 1 - Exam Left lower extremity: There is mild erythema of the left knee which appears to have slightly improved since yesterday. There is a healed incision over the anterior aspect of the left knee. There are areas where the patient has been scratching to the lateral aspect of the left lower leg. Patient has limited range of motion of the left lower extremity due to pain and swelling but she is able to flex the knee to approximately 90. Patient is able to fully extend the left lower extremity. There is erythema of the left ankle and left calf. No significant calf swelling. Calf is soft and nontender. Strength is 5/5 and sensation intact. Dorsalis pedis pulses are 2+ bilaterally. Right lower extremity: No tenderness to palpation. There is mild erythema to the lateral aspect of the lower leg which appears to be from scratching. There are several small bumps to the dorsal aspect of the right foot that the patient states are pruritic. No swelling of the left lower extremity. Calf is soft and nontender. Patient has full range of motion of the right lower extremity. Neurovascular status intact. - Labs CBC & Chem 7: 04/21/17 05:58 04/21/17 05:58 Labs: Abnormal Lab Results - Last 24 Hours (Table) 04/21/17 04/21/17 Range/Units 05:58 05:58 RBC 3.53 L (3.80-5.40) m/uL Hgb 10.0 L (11.4-16.0) gm/dL Hct 33.4 L (34.0-46.0) % MCHC 29.9 L (31.0-37.0) g/dL RDW 16.6 H (11.5-15.5) % ESR 31 H (0-20) mm/hr Glucose 102 H (74-99) mg/dL AST 64 H (14-36) U/L Alkaline Phosphatase 141 H (38-126) U/L C-Reactive Protein 15.3 H (<10.0) mg/L Albumin 3.4 L (3.5-5.0) g/dL Microbiology - Last 24 Hours (Table) 04/21/17 00:02 Blood Culture - Preliminary Blood No Growth after 24 hours 04/20/17 23:28 Blood Culture - Preliminary Blood No Growth after 24 hours Assessment and Plan (1) Cellulitis Status: Acute (2) Status post total left knee replacement Status: Acute Plan: #1. Consult to infectious disease. #2. Continue IV vancomycin and pain control. #3. Appreciate input from internal medicine. #4. Will follow the patient closely.
--- NOTE | 2017-04-22 15:09 | PN ---
DATE OF SERVICE: 04/22/2017 Reason for follow-up is bilateral lower extremity cellulitis, left greater than right. INTERVAL HISTORY: The patient is afebrile. Overall swelling and redness of the leg area has improved. Minimal redness of the lower part of the incision ( ) has resolved. The patient overall itching has improved. Less scratching. Denies significant chest pain, shortness of breath or cough. No abdominal pain or diarrhea. On examination, blood pressure 147/67, pulse of 83, temperature 98.2 She is 95% on room air. General description is a middle-age female up in the chair in no distress. RESPIRATORY SYSTEM: Unlabored breathing. Clear to auscultation anteriorly. HEART: S1, S2. Regular rate and rhythm. ABDOMEN: Soft. No tenderness. Bilateral leg swelling and redness has much improved. Slightly warmer to touch. No skin breakdown. No drainage. LABS: Hemoglobin is 10.1, white count 4.7, BUN of 15, creatinine 0.60. Blood culture positive for a gram-positive cocci, only one bottle. DIAGNOSTIC IMPRESSION AND PLAN: Patient admitted to the hospital with bilateral lower extremity cellulitis, left greater than right with diffuse swelling and redness with concern for possible streptococcal disease, currently on cefazolin and Vanco that will be continued. Waiting for the blood cultures to finalize to determine discharge antibiotics. She does not clinically behave to be septic or bacteremic and positive blood cultures could be more likely skin contamination. Hence, we need to wait for the final ID of this pathogen. Blood culture has been repeated to make sure no evidence of any persistent bacteremia. Continue with the Mycolog cream which may be applied three times a day.
[2017-04-22] MEDS: ALBUTEROL NEBULIZED 2.5 MG/3 ML INHALATION PRN ×2 (15:12→21:14)
[2017-04-22] MEDS: MELATONIN 5 MG TABLET PO SCH (21:52)
[2017-04-22] MEDS: TEMAZEPAM 15 MG CAP PO SCH (21:52)
[2017-04-22] MEDS: SENNOSIDES-DOCUSATE SODIUM 1 EACH TAB PO SCH (21:54)
[2017-04-23] MEDS: ceFAZolin 2 GM in SODIUM CHLORIDE 0.9% 100 ML IVPB SCH ×3 (00:51→16:06)
[2017-04-23 04:41] LABS: Anisocytosis Slight; Basophils % (A) 1 %; CH 28.3; CHCM 29.6; Eosinophils # (A) 0.5 k/uL (0-0.7); Eosinophils % (A) 12 %; HCT 34.1 % (34.0-46.0); HDW 2.45; Hypochromasia Marked; Luc % (Auto) 3; Lymphocytes # (A) 0.9 k/uL (1.0-4.8); Lymphocytes % (A) 23 %; MCH 27.9 pg (25.0-35.0); MCHC 29.2 g/dL (31.0-37.0); MCV 95.6 fL (80.0-100.0); Mean Platelet Volume 7.5; Monocytes # (A) 0.3 k/uL (0-1.0); Monocytes % (A) 8 %; Neutrophils % (A) 54 %; RBC 3.56 m/uL (3.80-5.40); RDW 16.5 % (11.5-15.5); WBC 3.8 k/uL (3.8-10.6); WBC (Perox) 4.35
[2017-04-23 04:48] LABS: ALT 52 U/L (9-52); AST 84 U/L (14-36); Alkaline Phosphatase 138 U/L (38-126); Anion Gap 8 mmol/L; Blood Urea Nitrogen 15 mg/dL (7-17); Calcium 8.9 mg/dL (8.4-10.2); Carbon Dioxide 26 mmol/L (22-30); Chloride 107 mmol/L (98-107); Glucose 110 mg/dL (74-99); Non-African American GFR(MDRD) >60 (>60 ml/min/1.73 sqM); Potassium 4.1 mmol/L (3.5-5.1); Sodium 141 mmol/L (137-145); Total Bilirubin 0.4 mg/dL (0.2-1.3); Total Protein 6.7 g/dL (6.3-8.2)
[2017-04-23] MEDS ORDERED: VANCOMYCIN TROUGH DUE 1 EACH MISC MISCELLANE ONE (05:00)
[2017-04-23] MEDS: VANCOMYCIN 1,500 MG in SODIUM CHLORIDE 0.9% 250 ML IVPB SCH ×2 (05:58→18:39)
[2017-04-23 07:18] LABS: Glucose,Whole Blood 123 mg/dL (75-99)
--- NOTE | 2017-04-23 07:19 | PN ---
DATE OF SERVICE: 04/22/2017 This 66-year-old woman who was admitted with bilateral leg cellulitis left more than the right, is on IV antibiotics. No chest pain, no palpitations, no fever. On exam, alert and oriented x3. Pulse 83, blood pressure 114/59, respirations 16, temperature 97.8, pulse ox 90% on room. HEENT: Conjunctivae normal. NECK: No jugular venous distention. CARDIOVASCULAR: S1 and S2. RESPIRATORY: Breath sounds diminished at the bases. No rhonchi, no crackles. ABDOMEN: Soft, nontender. LEGS: Bilateral leg cellulitis, redness and left more than right. NERVOUS SYSTEM: No focal deficits. LABS: WBC 4.7, hemoglobin 10.1, glucose 105. ASSESSMENT: 1. Acute cellulitis of the bilateral legs, left more than the right. 2. History of recent left total knee arthroplasty. 3. Increased AST, ALT; mild hepatitis. 4. Diabetes mellitus type 2. 5. History of gastroesophageal reflux disease. 6. Hypertension. 7. History of degenerative joint disease. 8. History of pericarditis. 9. History of irregular cardiac rhythm with bigeminy and trigeminy previously. 10. History of fractured neck C2 with limited movements. 11. History of possible peripheral neuropathy. 12. History of breast cancer. 13. History of section. 14. History of cervical fusion. 15. History of anxiety and depression, not otherwise specified. 16. FULL CODE. RECOMMENDATIONS AND DISCUSSION: I recommend to continue the current medications, continue monitoring and symptomatic treatment. Otherwise continue with broad-spectrum IV antibiotics. Further recommendations to follow.
[2017-04-23] MEDS: INSULIN LISPRO (humaLOG) 300 UNIT/3 ML VIAL SQ SCH ×4 (07:41→23:08)
[2017-04-23] MEDS: ALBUTEROL NEBULIZED 2.5 MG/3 ML INHALATION PRN ×2 (09:11→13:54)
--- NOTE | 2017-04-23 09:54 | P.PN ---
Subjective Principal diagnosis: Cellulitis left lower extremity greater than right Patient is 66-year-old female seen at bedside this morning. She was admitted for bilateral lower extremity cellulitis where she is status post left total knee arthroplasty, approximately 3 weeks ago. She has some mild pain at the left knee and itching in the lower extremities that is alleviated with medications. She has no new complaints today. She denies numbness, tingling, calf pain. Review of systems negative for fever, chills, chest pain, shortness of breath, slurred speech or other. Objective - Vital Signs Vital signs: Vital Signs Temp 97.6 F 04/23/17 07:00 Pulse 84 04/23/17 09:22 Resp 18 04/23/17 07:00 BP 132/68 04/23/17 07:00 Pulse Ox 95 04/23/17 07:00 Intake & Output 04/22/17 04/23/17 04/23/17 18:59 06:59 18:59 Intake Total 830 350 480 Balance 830 350 480 Intake: IV 350 Vancomycin 1,500 mg In 250 Sodium Chloride 0.9% 250 ml @ 125 mls/hr IVPB Q12H [facility] Rx#:[id number] ceFAZolin 2 gm In Sodium 100 Chloride 0.9% 100 ml @ 100 mls/hr IVPB Q8HR [facility] Rx#:[id number] Intake, IV Titration 350 Amount Vancomycin 1,500 mg In 250 Sodium Chloride 0.9% 250 ml @ 125 mls/hr IVPB Q12H [facility] Rx#:[id number] ceFAZolin 2 gm In Sodium 100 Chloride 0.9% 100 ml @ 100 mls/hr IVPB Q8HR [facility] Rx#:[id number] Oral 480 480 Other: # Voids 2 - Exam Inspection of the lower extremities revealed benign total knee arthroplasty surgical wound. The left knee itself looks benign. There is erythema at the distal lower extremities consistent with cellulitis which appears to be stable. Edema is improved versus 2 days ago. The calves are soft and nontender. There is adequate perfusion throughout. Negative Homans sign bilaterally. Motor and sensation is fully intact throughout both lower extremities. 2+ dorsalis pedis pulses and less than 2 second cap refill is present. - Constitutional General appearance: Present: no acute distress - Psychiatric Psychiatric: Present: A&O x's 3, appropriate affect, intact judgment & insight - Labs CBC & Chem 7: 04/23/17 04:26 04/23/17 04:26 Labs: Abnormal Lab Results - Last 24 Hours (Table) 04/23/17 04/23/17 04/23/17 Range/Units 04:26 04:26 07:02 RBC 3.56 L (3.80-5.40) m/uL Hgb 10.0 L (11.4-16.0) gm/dL MCHC 29.2 L (31.0-37.0) g/dL RDW 16.5 H (11.5-15.5) % Lymphocytes # 0.9 L (1.0-4.8) k/uL Glucose 110 H (74-99) mg/dL POC Glucose (mg/dL) 123 H (75-99) mg/dL AST 84 H (14-36) U/L Alkaline Phosphatase 138 H (38-126) U/L Microbiology - Last 24 Hours (Table) 04/20/17 23:28 Blood Culture - Preliminary Blood No Growth after 48 hours 04/21/17 00:02 Blood Culture Gram Stain - Preliminary Blood Blood Culture - Preliminary Coagulase Negative Staph 04/21/17 00:02 Blood Culture - Final Blood Assessment and Plan (1) Cellulitis Narrative/Plan: She'll continue with pain management, antibiotic coverage per infectious diseases as cultures are pending and waiting the final report for recommendations, physical therapy, and medical management. Status: Acute Time with Patient: Less than 30
[2017-04-23] MEDS: FLUTICASONE 50MCG/SPRAY NASAL 16GM EA NOSTRIL SCH (10:02)
[2017-04-23] MEDS: ASPIRIN 325 MG TAB PO SCH ×2 (10:02→21:17)
[2017-04-23] MEDS: MAGNESIUM OXIDE 400 MG TAB PO SCH (10:03)
[2017-04-23] MEDS: VALSARTAN 160 MG TAB PO SCH (10:03)
[2017-04-23] MEDS: MULTIVITAMINS, THERA 1 EACH TAB PO SCH (10:03)
[2017-04-23] MEDS: LORATADINE 10 MG TAB PO SCH (10:03)
[2017-04-23] MEDS: DULoxetine HCL 60 MG CAPSULE.DR PO SCH (10:03)
[2017-04-23] MEDS: B COMPLEX-VIT C-VIT E-ZINC 1 EACH TAB PO SCH (10:03)
[2017-04-23] MEDS: NYSTATIN 100,000UNIT/GM CREAM 30 GM TUBE TOPICAL SCH ×3 (10:06→21:18)
[2017-04-23] MEDS: TRIAMCINOLONE 0.1% CREAM 80 GM TUBE TOPICAL SCH ×3 (10:06→21:18)
[2017-04-23 11:27] LABS: Glucose,Whole Blood 106 mg/dL (75-99)
--- NOTE | 2017-04-23 12:43 | PN ---
DATE OF SERVICE: 04/23/2017 This 66-year-old woman who was admitted with acute cellulitis of bilateral legs, left more than right is on IV antibiotics. The redness is improving at this time. No chest pain or palpitation. The patient is complaining of right knee pain. On exam, alert and oriented x3. Pulse 77, blood pressure 132/68, respirations 18, temperature 97.6, pulse ox 95% on room air. HEENT: Conjunctivae normal. NECK: No jugular venous distention. CARDIOVASCULAR: S1 and S2, muffled. RESPIRATORY: Breath sounds diminished at the bases. No rhonchi, no crackles. ABDOMEN: Soft. LEGS: Bilateral leg cellulitis. NERVOUS SYSTEM: No focal deficits. LABS: WBC 3.8, hemoglobin 10. Glucose 106. ASSESSMENT: 1. Acute cellulitis of bilateral legs, left more than right. 2. History of recent left total knee arthroplasty. 3. Increased AST, ALT, mild hepatitis. 4. Diabetes mellitus type 2. 5. History of gastroesophageal reflux disease. 6. Hypertension. 7. History of degenerative joint disease. 8. History of pericarditis. 9. History of irregular cardiac rhythm with bigeminy and trigeminy previously. 10. History of fracture neck C2 with limited movements. 11. History of possible peripheral neuropathy. 12. History of breast cancer. 13. History of section. 14. History of cervical fusion. 15. History of anxiety and depression, not otherwise specified. 16. FULL CODE. RECOMMENDATIONS AND DISCUSSION: I recommend to continue current medications, continue symptomatic treatment. Continue with IV antibiotics. Otherwise rheumatoid factor, MISSY is negative. Closely follow with Infectious Disease. Further recommendations to follow.
[2017-04-23 14:08] VITALS: RESP 16
[2017-04-23 21:07] LABS: Glucose,Whole Blood 137 mg/dL (75-99)
[2017-04-23] MEDS: DIAZEPAM 5 MG TAB PO PRN (21:16)
[2017-04-23] MEDS: TEMAZEPAM 15 MG CAP PO SCH (21:16)
[2017-04-23] MEDS: MELATONIN 5 MG TABLET PO SCH (21:27)
--- NOTE | 2017-04-23 21:40 | P.CONS ---
History of Present Illness - Reason for Consult Consult date: 04/23/17 - Chief Complaint Swelling to the left leg. - History of Present Illness 66-year-old female presents to Hospital with a 3 week history of ongoing erythema and swelling to the left lower extremity. No she underwent a left total knee arthroplasty on 03/29/2017. She's noticed some erythema to the tissue. As well as some minimal erythema and swelling to the right lower extremity lateral surface. She relates that she's had no significant fever, chills or rigors. He was treated with several courses of oral antibiotic therapy with Keflex. She was not certain that she had any improvement and she sought care at Hospital. Here there has been no fever, chills or rigors. She's had no positive cultures. And does not have leukocytosis. Review of Systems HEENT:Denies headache or acute visual change. Denies sinus or mouth discomforts. Denies neck stiffness or pain. Denies significant oral cavity pain. Denies difficulty on swallowing. Lungs: Denies significant shortness of breath, cough, sputum production, or hemoptysis. Cardiovascular: Denies significant shortness of breath, chest pain, chest wall pain, orthopnea, dyspnea on exertion, syncope Gastrointestinal:Denies nausea, vomiting, diarrhea, constipation, hematemesis, melena, hematochezia. No no significant change of bowel habit noticed. Musculoskeletal: denies significant myalgias or arthralgias. No new joint swelling. Denies new back pain. Skin: See the HPI Neuro: Denies headache or visual change. Denies any new onset weakness or difficulty with ambulation. Denies falls or seizures. Psychiatric:Denies anxiety or depression. Endocrine: Denies significant fatigue, denies significant weight loss or weight gain. Past Medical History Past Medical History: Cancer, Diabetes Mellitus, GERD/Reflux, Hypertension, Osteoarthritis (OA) Additional Past Medical History / Comment(s): hx pericarditis, irregular heart rate with trigeminy,bigeminy, fx neck C2- limited movement of neck wears neck collar, need assistance getting up and down also has hx falls r/t mobility, elevated liver enzymes, hx breast cancer History of Any Multi-Drug Resistant Organisms: None Reported Past Surgical History: Breast Surgery, Section, Orthopedic Surgery Additional Past Surgical History / Comment(s): cervical fusion c-2, lt breast lumpectomy, lt knee meniscus repair, vocal cord surgery x3, bunionectomy rt foot , cataracts, lasik Past Anesthesia/Blood Transfusion Reactions: Postoperative Nausea & Vomiting ( PONV) Past Psychological History: Anxiety, Depression Smoking Status: Never smoker Past Alcohol Use History: Daily Additional Past Alcohol Use History / Comment(s): COUPLE GLASSES WINE DAILY Past Drug Use History: None Reported - Past Family History Brother(s) Family Medical History: Cancer Additional Family Medical History / Comment(s): prostate Medications and Allergies Home Medications and Allergies Comment(s): Current Medications Acetaminophen (Tylenol Tab) 650 mg PO Q4HR PRN PRN Reason: Pain Scale 1 to 5 Albuterol Sulfate (Ventolin Nebulized) 2.5 mg INHALATION RT-QID PRN PRN Reason: Shortness Of Breath Last Admin: 04/23/17 13:54 Dose: 2.5 mg Alprazolam (Xanax) 0.25 mg PO TID PRN PRN Reason: Anxiety Aspirin (Aspirin) 325 mg PO BID [facility] Last Admin: 04/23/17 21:17 Dose: 325 mg Bisacodyl (Dulcolax) 10 mg RECTAL DAILY PRN PRN Reason: Constipation Diazepam (Valium) 2.5 mg PO Q8HR PRN PRN Reason: Mild Spasms Last Admin: 04/23/17 21:16 Dose: 2.5 mg Diphenhydramine HCl (Benadryl) 25 mg PO TID PRN PRN Reason: Itching Last Admin: 04/21/17 05:27 Dose: 25 mg Duloxetine HCl (Cymbalta) 60 mg PO DAILY [facility] Last Admin: 04/23/17 10:03 Dose: 60 mg Fluticasone Propionate (Flonase Nasal [place]) 1 spray EA NOSTRIL DAILY [facility] Last Admin: 04/23/17 10:02 Dose: 1 spray Hydromorphone HCl (Dilaudid) 0.5 mg IVP Q4HR PRN PRN Reason: Pain Last Admin: 04/22/17 22:55 Dose: 0.5 mg Hydroxyzine Pamoate (Vistaril) 25 mg PO Q4HR PRN PRN Reason: Nausea, Anxiety, Pain Control Last Admin: 04/22/17 22:55 Dose: 25 mg Vancomycin HCl 1,500 mg/ (Sodium Chloride) 250 mls @ 125 mls/hr IVPB Q12H [facility] Last Admin: 04/23/17 18:39 Dose: 125 mls/hr Insulin Human Lispro (Humalog) 0 unit SQ ACHS [facility] PRN Reason: Protocol Last Admin: 04/23/17 18:37 Dose: Not Given Loratadine (Claritin) 10 mg PO DAILY [facility] Last Admin: 04/23/17 10:03 Dose: Not Given Magnesium Hydroxide (Milk Of Magnesia) 2,400 mg PO DAILY PRN PRN Reason: Constipation Magnesium Oxide (Mag-Ox) 400 mg PO DAILY [facility] Last Admin: 04/23/17 10:03 Dose: Not Given Melatonin (Melatonin) 10 mg PO [facility] Last Admin: 04/23/17 21:27 Dose: 10 mg Multivitamins (Theragran) 1 each PO DAILY@1200 [facility] Last Admin: 04/23/17 10:03 Dose: 1 each Naloxone HCl (Narcan) 0.2 mg IV Q2M PRN PRN Reason: Opioid Reversal Nystatin (Mycostatin Cream) 1 applic TOPICAL TID [facility] Last Admin: 04/23/17 21:18 Dose: 1 applic Ondansetron HCl (Zofran) 4 mg IVP Q8HR PRN PRN Reason: Nausea And Vomiting Oxycodone/Acetaminophen (Percocet 7.5-325) 1 each PO Q6HR PRN PRN Reason: Pain Senna/Docusate Sodium (Senokot-S) 2 each PO HS [facility] Last Admin: 04/22/17 21:54 Dose: Not Given Silver Sulfadiazine (Silvadene Cream) 1 applic TOPICAL BID [facility] Sodium Biphosphate/Sodium Phosphate (Fleet Adult) 133 ml RECTAL DAILY PRN PRN Reason: Constipation Temazepam (Restoril) 15 mg PO [facility] Last Admin: 04/23/17 21:16 Dose: 15 mg Triamcinolone Acetonide (Kenalog) 1 applic TOPICAL TID [facility] Last Admin: 04/23/17 21:18 Dose: 1 applic Valsartan (Diovan) 160 mg PO DAILY [facility] Last Admin: 04/23/17 10:03 Dose: 160 mg Vitamin B Complex/Vit C/Vit E/Zinc (Z-Bec) 1 each PO DAILY [facility] Last Admin: 04/23/17 10:03 Dose: 1 each Ancef 2 g IV piggyback every 8 hours Home Medications Medication Instructions Recorded Confirmed Type Temazepam [Restoril] 15 mg PO HS 05/14/15 04/20/17 History Albuterol Sulfate [Proair Hfa] 2 puff INHALATION RT-QID PRN 02/08/17 04/20/17 History Cetirizine HCl [Zyrtec] 10 mg PO DAILY 02/08/17 04/20/17 History DULoxetine HCL [Cymbalta] 60 mg PO DAILY 02/08/17 04/20/17 History Fluticasone Nasal [place] [Flonase 1 spray EA NOSTRIL DAILY 02/08/17 04/20/17 History Nasal [place]] B Complex-Vit C-Vit E-Zinc [Z-Bec] 1 tab PO DAILY 03/23/17 04/20/17 History Biotin 10,000 mcg PO DAILY 03/23/17 04/20/17 History Iron 18 mg PO DAILY 03/23/17 04/20/17 History Magnesium Oxide [Magnesium] 250 mg PO DAILY 03/23/17 04/20/17 History Melatonin 10 mg PO HS 03/23/17 04/20/17 History Milk Thistle 480 mg PO BID 03/23/17 04/20/17 History Cephalexin [Keflex] 500 mg PO QID 04/20/17 04/20/17 History Hydrochlorothiazide [Hydrodiuril] 25 mg PO DAILY 04/20/17 04/20/17 History Valsartan [Diovan] 160 mg PO DAILY 04/20/17 04/20/17 History Allergies Allergy/AdvReac Type Severity Reaction Status Date / Time amoxicillin trihydrate Allergy Rash/Hives Verified 04/07/17 15:25 [From Augmentin] lincomycin HCl Allergy Rash/Hives Verified 04/07/17 15:25 [From Lincocin] potassium clavulanate Allergy Rash/Hives Verified 04/07/17 15:25 [From Augmentin] procainamide Allergy Unknown Verified 04/07/17 15:25 tocainide [From Tonocard] Allergy Unknown Verified 04/07/17 15:25 avocado AdvReac CANKER Verified 04/07/17 15:25 SORES IN MOUTH tree nut [Pecan] AdvReac CANKER Verified 04/07/17 15:25 SORES IN MOUTH Physical Exam Vitals: Vital Signs Temp Pulse Pulse Resp BP Pulse Ox 04/23/17 19:28 99.3 F 87 16 112/70 97 04/23/17 14:08 98.0 F 72 16 141/66 100 04/23/17 14:02 72 04/23/17 13:54 74 04/23/17 09:22 84 04/23/17 09:12 80 04/23/17 07:00 97.6 F 77 18 132/68 95 04/23/17 02:21 98.7 F 79 16 114/58 Intake and Output 04/23/17 04/23/17 04/23/17 06:59 14:59 22:59 Intake Total 350 1210 480 Balance 350 1210 480 Intake: IV 350 250 Vancomycin 1,500 mg In 250 250 Sodium Chloride 0.9% 250 ml @ 125 mls/hr IVPB Q12H [facility] Rx#:[id number] ceFAZolin 2 gm In Sodium 100 Chloride 0.9% 100 ml @ 100 mls/hr IVPB Q8HR [facility] Rx#:[id number] Oral 960 480 Other: Voiding Method Toilet 66-year-old woman who is in no acute distress HEENT: Anicteric conjunctiva are pink and moist nasal mucosa grossly intact without significant lesions, there is no thrush. Neck: The neck is supple without significant lymphadenopathy or thyromegaly. Lungs: Good bilateral air entry without significant crackles or wheezing. There is no significant bronchial sounds. There is no egophony or dullness. Heart: Regular rate and rhythm with an audible S1-S2, no S3 no S4. There is no significant murmur click or rub, PMI was nondisplaced. Abdomen: Positive bowel sounds soft and nontender without palpable masses or organomegaly. There was no guarding or rebound. Extremities: The upper extremities have excellent pulses they are symmetric, no significant petechiae or telangiectasia. No splinter hemorrhages were noted. The left lower extremity is status post a left total knee arthroplasty. There is some residual warmth and mild erythema to the knee. It is 25 days postop. She has modestly good range of motion, no significant effusion. Right lower extremity shows evidence of some edema and some minimal erythema to the lateral aspect of the calf. It is minimally pruritic. No open lesions are seen. Left lower extremity shows evidence of some circumferential edema especially compared to the right. It has some increased color with a red to purple hue to the region. No distinct lesions bulla or vesicles are seen. Neuro: Awake alert oriented to person place and time. There are no acute new gross focal sensory motor deficits. Results CBC & Chem 7: 04/23/17 04:26 04/23/17 04:26 Labs: Abnormal Lab Results - Last 24 Hours (Table) 04/23/17 04/23/17 04/23/17 Range/Units 04:26 04:26 07:02 RBC 3.56 L (3.80-5.40) m/uL Hgb 10.0 L (11.4-16.0) gm/dL MCHC 29.2 L (31.0-37.0) g/dL RDW 16.5 H (11.5-15.5) % Lymphocytes # 0.9 L (1.0-4.8) k/uL Glucose 110 H (74-99) mg/dL POC Glucose (mg/dL) 123 H (75-99) mg/dL AST 84 H (14-36) U/L Alkaline Phosphatase 138 H (38-126) U/L 04/23/17 04/23/17 Range/Units 11:25 21:02 RBC (3.80-5.40) m/uL Hgb (11.4-16.0) gm/dL MCHC (31.0-37.0) g/dL RDW (11.5-15.5) % Lymphocytes # (1.0-4.8) k/uL Glucose (74-99) mg/dL POC Glucose (mg/dL) 106 H 137 H (75-99) mg/dL AST (14-36) U/L Alkaline Phosphatase (38-126) U/L Microbiology - Last 24 Hours (Table) 04/22/17 10:22 Blood Culture - Preliminary Blood No Growth after 24 hours 04/22/17 10:14 Blood Culture - Preliminary Blood No Growth after 24 hours 04/20/17 23:28 Blood Culture - Preliminary Blood No Growth after 48 hours 04/21/17 00:02 Blood Culture Gram Stain - Preliminary Blood Blood Culture - Preliminary Coagulase Negative Staph Laboratory Results WBC 3.8 k/uL (3.8-10.6) 04/23/17 04:26 RBC 3.56 m/uL (3.80-5.40) L 04/23/17 04:26 Hgb 10.0 gm/dL (11.4-16.0) L 04/23/17 04:26 Hct 34.1 % (34.0-46.0) 04/23/17 04:26 MCV 95.6 fL (80.0-100.0) 04/23/17 04:26 MCH 27.9 pg (25.0-35.0) 04/23/17 04:26 MCHC 29.2 g/dL (31.0-37.0) L 04/23/17 04:26 RDW 16.5 % (11.5-15.5) H 04/23/17 04:26 Plt Count 174 k/uL (150-450) 04/23/17 04:26 Neutrophils % 54 % 04/23/17 04:26 Lymphocytes % 23 % 04/23/17 04:26 Monocytes % 8 % 04/23/17 04:26 Eosinophils % 12 % 04/23/17 04:26 Basophils % 1 % 04/23/17 04:26 Neutrophils # 2.0 k/uL (1.3-7.7) 04/23/17 04:26 Lymphocytes # 0.9 k/uL (1.0-4.8) L 04/23/17 04:26 Monocytes # 0.3 k/uL (0-1.0) 04/23/17 04:26 Eosinophils # 0.5 k/uL (0-0.7) 04/23/17 04:26 Basophils # 0.0 k/uL (0-0.2) 04/23/17 04:26 Hypochromasia Marked 04/23/17 04:26 Anisocytosis Slight 04/23/17 04:26 Macrocytosis Slight 04/20/17 20:37 ESR 31 mm/hr (0-20) H 04/21/17 05:58 Sodium 141 mmol/L (137-145) 04/23/17 04:26 Potassium 4.1 mmol/L (3.5-5.1) 04/23/17 04:26 Chloride 107 mmol/L (98-107) 04/23/17 04:26 Carbon Dioxide 26 mmol/L (22-30) 04/23/17 04:26 Anion Gap 8 mmol/L 04/23/17 04:26 BUN 15 mg/dL (7-17) 04/23/17 04:26 Creatinine 0.70 mg/dL (0.52-1.04) 04/23/17 04:26 Est GFR (MDRD) Af Amer >60 (>60 ml/min/1.73 sqM) 04/23/17 04:26 Est GFR (MDRD) Non-Af >60 (>60 ml/min/1.73 sqM) 04/23/17 04:26 Glucose 110 mg/dL (74-99) H 04/23/17 04:26 POC Glucose (mg/dL) 137 mg/dL (75-99) H 04/23/17 21:02 POC Glu Head Swamper ID Stew Torres 04/23/17 21:[address] Glu mg/dL 103 mg/dL 04/20/17 17:53 Hemoglobin A1c 5.2 % (4.2-6.1) 04/20/17 17:53 Calcium 8.9 mg/dL (8.4-10.2) 04/23/17 04:26 Total Bilirubin 0.4 mg/dL (0.2-1.3) 04/23/17 04:26 AST 84 U/L (14-36) H 04/23/17 04:26 ALT 52 U/L (9-52) 04/23/17 04:26 Alkaline Phosphatase 138 U/L (38-126) H 04/23/17 04:26 C-Reactive Protein 15.3 mg/L (<10.0) H 04/21/17 05:58 Total Protein 6.7 g/dL (6.3-8.2) 04/23/17 04:26 Albumin 3.6 g/dL (3.5-5.0) 04/23/17 04:26 Vancomycin Trough 17.4 ug/mL 04/23/17 04:26 Rheumatoid Factor <9 IU/mL (<12) 04/21/17 05:58 MISSY Screen NEGATIVE (NEGATIVE) 04/21/17 05:58 Microbiology 04/22/17 10:22 Blood Blood Culture - Preliminary No Growth after 24 hours 04/22/17 10:14 Blood Blood Culture - Preliminary No Growth after 24 hours 04/20/17 23:28 Blood Blood Culture - Preliminary No Growth after 48 hours 04/21/17 00:02 Blood Blood Culture Gram Stain - Preliminary 04/21/17 00:02 Blood Blood Culture - Preliminary Coagulase Negative Staph 04/21/17 00:02 Blood Blood Culture - Final Assessment and Plan (1) Status post total left knee replacement Status: Acute (2) Positive blood culture Narrative/Plan: 66-year-old female presents to hospital with increasing erythema redness and swelling to the left lower extremity. She is 25 days status post left total knee arthroplasty. And there was concerns to the leg. She been on several courses of oral Keflex without improvement. In counseling was admitted. Antibiotic therapy continued. Blood culture on 04/20 was negative. Blood culture and 04/21 shows 2 cultures with coag negative staph. Blood cultures 04/22 are negative. If this time it does not appear that she has evidence of bacteremia. The blood cultures that were drawn on 04/21 were drawn at the same moment. She has no fever, chills, leukocytosis. She appears to have some postoperative changes of left lower extremity. Some Silvadene wrap will be applied. Expect improvement by the morning and hopefully will be discharged home. And by therapy has been discontinued. EVAN hose and then apply to the right lower extremity also for some edema control. Elevation of her limit rest is suggested. Status: Acute
--- NOTE | 2017-04-23 22:01 | PN ---
DATE OF SERVICE: 04/23/2017 I visited Elsa today. She is improving. She has been on IV vancomycin as well as IV Keflex. She feels that she is getting better, but she is fairly frustrated to be admitted. I did explain to her that we were treating her aggressively so as to hopefully avoid any spread of infection into her recently done total knee replacement. She is otherwise resting very comfortably with no complaints today. EXAM: T-max is 98.0, blood pressure 141/66, pulse 72 and she is satting 100% on room air. LABORATORIES: White count is 3.8, hemoglobin 10.0, platelets 174. EXAM: The erythema and swelling in the lower is much decreased today. When I took the sock off her foot, the erythema in her foot is almost completely resolved. It is definitely still some in the distal third of the leg; however, it appears to be much improved today. Again, the knee continues to look benign. She has no swelling in the knee. The incision is very well healed and there is no effusion. She has full extension and flexion to almost 120 degrees without pain. My impression: 1. Left lower extremity cellulitis. 2. Status post left total hip arthroplasty done a little over 3 weeks ago. Elsa is improving. This is very encouraging. We will await infectious disease recommendations. Certainly she has never developed a high white count and she has never been febrile. The cellulitis or erythema that she had her left lower extremity seemed to develop in a stocking-like distribution which is resolving. We will await infectious disease as far as the etiology of her erythema. She does have some areas of erythema on the right lower extremity as well. At this point we will continue to observe Elsa and continue on her antibiotic regimen as directed by infectious disease. We are very appreciative of the input that infectious disease service has given us so far. All Elsa's questions were answered to her satisfaction.
[2017-04-23] MEDS: SENNOSIDES-DOCUSATE SODIUM 1 EACH TAB PO SCH (23:08)
[2017-04-23] MEDS: diphenhydrAMINE 25 MG CAP PO PRN (23:11)
[2017-04-24] MEDS: VANCOMYCIN 1,500 MG in SODIUM CHLORIDE 0.9% 250 ML IVPB SCH (05:49)
[2017-04-24 06:53] LABS: Anisocytosis Slight; Basophils % (A) 1 %; CH 28.1; CHCM 30.2; Eosinophils # (A) 0.6 k/uL (0-0.7); Eosinophils % (A) 13 %; HCT 29.8 % (34.0-46.0); HGB 9.4 gm/dL (11.4-16.0); Hypochromasia Moderate; Luc # (Auto) 0.11; Luc % (Auto) 3; Lymphocytes # (A) 0.8 k/uL (1.0-4.8); Lymphocytes % (A) 17 %; MCH 29.5 pg (25.0-35.0); MCHC 31.5 g/dL (31.0-37.0); MCV 93.6 fL (80.0-100.0); Mean Platelet Volume 7.4; Monocytes # (A) 0.3 k/uL (0-1.0); Monocytes % (A) 7 %; Neutrophils # (A) 2.6 k/uL (1.3-7.7); Neutrophils % (A) 59 %; RBC 3.18 m/uL (3.80-5.40); RDW 16.6 % (11.5-15.5); WBC 4.3 k/uL (3.8-10.6); WBC (Perox) 4.62
[2017-04-24 07:13] LABS: ALT 46 U/L (9-52); AST 67 U/L (14-36); Alkaline Phosphatase 124 U/L (38-126); Anion Gap 8 mmol/L; Blood Urea Nitrogen 21 mg/dL (7-17); Calcium 8.8 mg/dL (8.4-10.2); Carbon Dioxide 23 mmol/L (22-30); Chloride 108 mmol/L (98-107); Glucose 136 mg/dL (74-99); Non-African American GFR(MDRD) >60 (>60 ml/min/1.73 sqM); Potassium 4.3 mmol/L (3.5-5.1); Sodium 139 mmol/L (137-145); Total Bilirubin 0.4 mg/dL (0.2-1.3); Total Protein 6.1 g/dL (6.3-8.2)
[2017-04-24] MEDS: INSULIN LISPRO (humaLOG) 300 UNIT/3 ML VIAL SQ SCH ×2 (08:20→13:50)
[2017-04-24] MEDS: ALBUTEROL NEBULIZED 2.5 MG/3 ML INHALATION PRN ×2 (08:20→13:37)
[2017-04-24] MEDS: ASPIRIN 325 MG TAB PO SCH (08:21)
[2017-04-24] MEDS: TRIAMCINOLONE 0.1% CREAM 80 GM TUBE TOPICAL SCH (08:22)
[2017-04-24] MEDS: LORATADINE 10 MG TAB PO SCH (08:22)
[2017-04-24] MEDS: B COMPLEX-VIT C-VIT E-ZINC 1 EACH TAB PO SCH (08:22)
[2017-04-24] MEDS: MAGNESIUM OXIDE 400 MG TAB PO SCH (08:22)
[2017-04-24] MEDS: FLUTICASONE 50MCG/SPRAY NASAL 16GM EA NOSTRIL SCH (08:22)
[2017-04-24] MEDS: DULoxetine HCL 60 MG CAPSULE.DR PO SCH (08:22)
[2017-04-24] MEDS: MULTIVITAMINS, THERA 1 EACH TAB PO SCH (08:23)
[2017-04-24] MEDS: VALSARTAN 160 MG TAB PO SCH (08:23)
[2017-04-24] MEDS: NYSTATIN 100,000UNIT/GM CREAM 30 GM TUBE TOPICAL SCH (08:23)
[2017-04-24 08:52] VITALS: BP 120/75; TEMP 98
--- NOTE | 2017-04-24 11:32 | P.DS ---
Providers Date of admission: 04/20/17 17:08 Expected date of discharge: 04/24/17 Attending physician: Sudarshan Collado Consults: 04/20/17 16:41 Consult Physician Routine Consulting Provider: Donald Oneil Consult Reason/Comments: medical management Do you want consulting provider notified?: Yes 04/20/17 16:49 Consult Physician Routine Consulting Provider: Mirza Groves Consult Reason/Comments: cellulitis s/p TKA Do you want consulting provider notified?: Yes Primary care physician: Pérez Vasquez - Discharge Diagnosis(es) (1) Cellulitis Patient was admitted on 04/20/2017 for concerns of superficial cellulitis of the lower extremities status post left TKA per Dr. Collado. She has been followed by infectious disease and has been on IV antibiotics. She has improved throughout her hospital course and on day of discharge she has no complaints. On day of discharge she is afebrile, vital signs are stable, labs within normal ranges including a normal white count, wound is benign, erythema is improved, edema resolving. Neurovascular status is intact throughout lower extremities. Both calves are soft nontender. She has sensation to light touch intact throughout bilateral lower extremities as well as active motor at the hip , knees, ankles, feet and toes. 2+ dorsalis pedis pulses and less than 2 second cap refill present. She has painless range of motion in bilateral knees. Skin is warm to touch and not overly hot. Review of systems is negative for fever, chills, chest pain, shortness breath, nausea, vomiting, dizziness, headaches, slurred speech, bleeding, diarrhea, abdominal pain, calf pain, numbness, tingling or other. Current Visit: Yes Status: Acute Priority: Medium Patient Condition at Discharge: Good Plan - Discharge Summary New Discharge Prescriptions: New oxyCODONE HCL [OxyIR] 5 mg PO Q4HR PRN #40 tab PRN Reason: Pain No Action Temazepam [Restoril] 15 mg PO HS DULoxetine HCL [Cymbalta] 60 mg PO DAILY Fluticasone Nasal [place] [Flonase Nasal [place]] 1 spray EA NOSTRIL DAILY Cetirizine HCl [Zyrtec] 10 mg PO DAILY Albuterol Sulfate [Proair Hfa] 2 puff INHALATION RT-QID PRN PRN Reason: Shortness Of Breath Melatonin 10 mg PO HS B Complex-Vit C-Vit E-Zinc [Z-Bec] 1 tab PO DAILY Magnesium Oxide [Magnesium] 250 mg PO DAILY Biotin 10,000 mcg PO DAILY Milk Thistle 480 mg PO BID Iron 18 mg PO DAILY Aspirin 325 mg PO BID #60 tab Docusate [Colace] 100 mg PO BID #60 capsule Valsartan [Diovan] 160 mg PO DAILY Hydrochlorothiazide [Hydrodiuril] 25 mg PO DAILY Cephalexin [Keflex] 500 mg PO QID Discharge Medication List Temazepam [Restoril] 15 mg PO HS 05/14/15 [History] Albuterol Sulfate [Proair Hfa] 2 puff INHALATION RT-QID PRN 02/08/17 [History] Cetirizine HCl [Zyrtec] 10 mg PO DAILY 02/08/17 [History] DULoxetine HCL [Cymbalta] 60 mg PO DAILY 02/08/17 [History] Fluticasone Nasal [place] [Flonase Nasal [place]] 1 spray EA NOSTRIL DAILY 02/08/17 [History] B Complex-Vit C-Vit E-Zinc [Z-Bec] 1 tab PO DAILY 03/23/17 [History] Biotin 10,000 mcg PO DAILY 03/23/17 [History] Iron 18 mg PO DAILY 03/23/17 [History] Magnesium Oxide [Magnesium] 250 mg PO DAILY 03/23/17 [History] Melatonin 10 mg PO HS 03/23/17 [History] Milk Thistle 480 mg PO BID 03/23/17 [History] Aspirin 325 mg PO BID #60 tab 04/02/17 [Rx] Docusate [Colace] 100 mg PO BID #60 capsule 04/02/17 [Rx] Cephalexin [Keflex] 500 mg PO QID 04/20/17 [History] Hydrochlorothiazide [Hydrodiuril] 25 mg PO DAILY 04/20/17 [History] Valsartan [Diovan] 160 mg PO DAILY 04/20/17 [History] oxyCODONE HCL [OxyIR] 5 mg PO Q4HR PRN #40 tab 04/24/17 [Rx] Follow up Appointment(s)/Referral(s): [facility], [NON-STAFF] - Sudarshan Collado MD [STAFF PHYSICIAN] - 1 Week Activity/Diet/Wound Care/Special Instructions: Weight-bear as tolerated Take meds as directed Wound care and antibiotic therapy recommendations per infectious disease Follow-up with Dr. Collado in office in 1 week Discharge Disposition: HOME SELF-CARE
[2017-04-24 14:07] VITALS: PULSE 72
--- NOTE | 2017-04-25 18:04 | PN ---
DATE OF SERVICE: 04/24/2017 This 66-year-old woman who was admitted with acute cellulitis of bilateral legs , left more than right, is improving significantly. No chest pain. No palpitations. No fever. The patient is followed by Dr. Curtis in the outpatient setting. On exam, alert and oriented x3. Pulse 83, blood pressure 120/74, respiration 16 , temperature 98 degrees. The pulse ox is 94% on room air. HEENT: Conjunctivae normal. NECK: No jugular venous distention. CARDIOVASCULAR SYSTEM: S1, S2 muffled. RESPIRATORY SYSTEM: Breath sounds diminished at the bases. No rhonchi. No crackles. ABDOMEN: Soft, non-tender. LEGS: Bilateral leg cellulitis, left more than the right, improving. NERVOUS SYSTEM: No focal deficit. LABS: Hemoglobin 9.4. White count is normal. Albumin 3.2. ASSESSMENT: 1. Acute cellulitis of bilateral legs, left more than the right. 2. History of recent left total knee arthroplasty. 3. Increased AST, ALT; mild hepatitis. 4. Diabetes mellitus, type 2. 5. History of gastroesophageal reflux disease. 6. Hypertension, essential. 7. History of degenerative joint disease. 8. History of pericarditis. 9. History of irregular cardiac rhythm with bigeminy, trigeminy previously. 10. History of fracture of neck C2 with limited movement. 11. History of peripheral neuropathy. 12. History of breast cancer. 13. History of section. 14. History of cervical fusion. 15. History of anxiety, depression not otherwise specified. 16. FULL CODE. RECOMMENDATIONS AND DISCUSSION: I recommend to continue current medications, continue with the monitoring, symptomatic treatment. Otherwise, at this time we will monitor the patient closely. I recommend outpatient antibiotics. Infectious disease evaluation appreciated. Resume the home medications. Closely follow with Dr. Curtis. Further recommendations per Orthopedic Surgery. Further recommendations to follow. MTDD
== END 2017-04-24 15:20 | disposition home health service (06) | DRG 603 ==
LOC: 3SUR 17:08
PROVIDERS: ADMIT Orthopaedic Surgery Sports Medicine; ATTEND Orthopaedic Surgery Sports Medicine
DX: L03.116 Cellulitis of left lower limb (principal); E11.42 Type 2 diabetes mellitus with diabetic polyneuropathy; J84.10 Pulmonary fibrosis, unspecified; L03.115 Cellulitis of right lower limb; K75.9 Inflammatory liver disease, unspecified; I10 Essential (primary) hypertension; K21.9 Gastro-esophageal reflux disease without esophagitis; M19.91 Primary osteoarthritis, unspecified site; F32.9 Major depressive disorder, single episode, unspecified; F41.9 Anxiety disorder, unspecified; Z98.42 Cataract extraction status, left eye; Z98.41 Cataract extraction status, right eye; Z96.652 Presence of left artificial knee joint; Z85.3 Personal history of malignant neoplasm of breast; Z98.1 Arthrodesis status; Z79.82 Long term (current) use of aspirin; Z79.899 Other long term (current) drug therapy; Z88.0 Allergy status to penicillin; Z88.1 Allergy status to other antibiotic agents; Z91.018 Allergy to other foods; Z88.8 Allergy status to other drugs, medicaments and biological substances
CPT/HCPCS: 71010; 80053; 80202; 83036; 85025; 85652; 86038; 86140; 86431; 87040; 94640

== ENCOUNTER → 2017-12-04 | Outpatient (CLI) | payer MEDICARE ==
--- NOTE | 2017-12-04 15:40 | MR ---
EXAMINATION TYPE: MR thoracic spine wo con DATE OF EXAM: 12/04/2017 COMPARISON: NONE HISTORY: Back pain Standard multiplanar, multisequence MRI departmental protocol Multiplanar, multisequence images of the thoracic spine were acquired. Diffusion weighted imaging was performed. FINDINGS: The thoracic spine vertebral bodies maintain normal vertebral body height and alignment. Modic type I I endplate changes are seen of the midthoracic spine. Additionally there are two T2/T1 hyperintense v ertebral body hemangiomas of the lower thoracic spine (approximately T9 and T11). Otherwise the bone marrow signal is within normal limits. The thoracic spine cord maintains normal signal throughout. T1-T2: There is a small disc osteophyte complex without spinal canal stenosis or neural foraminal leonardo rowing. T2-T3: No significant disc disease, neuroforaminal stenosis or spinal canal stenosis. T4-C6: Small broad-based disc bulge with no significant spinal canal stenosis or neuroforaminal narro wing. T6-T7: There is a left eccentric broad-based disc bulge creating mild spinal canal stenosis narrowing the ventral subarachnoid space and mild left neural foraminal narrowing. T7-T8: There is a small broad-based disc bulge creating mild spinal canal stenosis. No neural foramin al narrowing. T8-T9: There is small broad-based disc bulge creating mild bilateral neural foraminal narrowing and m ild spinal canal stenosis. T9-T10: There is a small broad-based disc bulge, right eccentric, with no significant spinal canal st enosis or neural foraminal narrowing. T10-T11: There is a small broad-based disc bulge creating mild spinal canal stenosis and mild bilater al neural foraminal narrowing. T11-T12: There is a right eccentric broad-based disc bulge without significant spinal canal stenosis or neural foraminal narrowing. T12-L1: No significant disc disease, spinal canal stenosis or neural foraminal narrowing. L1-L2: Small central disc herniation superimposed upon a broad-based disc bulge creating mild bilater al neural foraminal narrowing and mild spinal canal stenosis. IMPRESSION: 1. Small central disc herniation at L1-L2 creating mild spinal canal stenosis and mild bilateral neur al foraminal narrowing. 2. Moderate multilevel degenerative disc disease of the thoracic spine resulting in mild spinal canal stenosis at T6-T9 and T10-T11.
--- NOTE | 2017-12-05 13:21 | MR ---
EXAMINATION TYPE: MR cervical spine wo/w con DATE OF EXAM: 12/04/2017 COMPARISON: NONE HISTORY: weakness, pain TECHNIQUE: Multiplanar, multisequence images of the cervical spine were acquired utilizing 9 mL intravenous Gada vist gadolinium contrast. Diffusion weighted imaging was performed. FINDINGS: There is anterior cervical fusion of the C2-T1 vertebral bodies with posterior element rese ction of the upper cervical spine and pedicular screws also seen posterior laterally traversing the T 2 vertebral body. Fixation screw is present through the C2 vertebral body appearing to fixate an old healed C2 fracture. Abnormal T2 hyperintense signal is seen within the upper cervical cord at the level of C2 measuring 7 mm with volume loss consistent with myelomalacia seen on the sagittal images only. Susceptibility ar tifact from the cervical fusion hardware partially limits evaluation although the spinal canal appear s patent from C2 through T1 with small posterior disc osteophyte complex at C7-T1 without spinal carolina l stenosis. Evaluation for neural foraminal stenosis is limited due to susceptibility artifact, however there fernanda ears to be mild left neural foraminal narrowing at C2-C3, patency bilaterally at C3-C4 as well as at C4-C5 with mild left neural foraminal narrowing at C5-C6. There is also patency at C6-C7 bilaterally. At T1-T2 is demonstrated on the thoracic spine MR of the same day there is a small disc osteophyte c omplex without spinal canal stenosis or neural foraminal narrowing. No abnormal enhancement to sugges t epidural fibrosis or other abnormality throughout the cervical spine. Visualized portions of the po sterior fossa are unremarkable. IMPRESSION: 1. Extensive postsurgical changes of the cervical spine with a normal 7 mm area of T2 hyperintensity posterior to the C2 vertebral body within the spinal cord most consistent with myelomalacia. 2. Multilevel mild neural foraminal narrowing as described above. No evidence of spinal canal stenosi s.
== END ==
LOC: RADMRIMAIN 12:55
PROVIDERS: ATTEND Family Medicine
DX: M51.34 Other intervertebral disc degeneration, thoracic region (principal); M48.04 Spinal stenosis, thoracic region; M51.26 Other intervertebral disc displacement, lumbar region; M48.061 Spinal stenosis, lumbar region without neurogenic claudication; G95.89 Other specified diseases of spinal cord; Z98.890 Other specified postprocedural states
CPT/HCPCS: 72146; 72156; A9581

== ENCOUNTER 2017-12-17 13:41 | Inpatient (IN) | payer MEDICARE ==
[2017-12-17] MEDS ORDERED: methylPREDNISolone SOD SUCCI 125 MG/2 ML VIAL IV STA (14:15)
[2017-12-17] MEDS ORDERED: IPRATROPIUM-ALBUTEROL 3 ML NEB INHALATION STA (14:15)
[2017-12-17 14:39] LABS: ABG Base Excess 2.8 mmol/L; ABG HCO3 26 mmol/L (21-25); ABG Oxygen Saturation 99.3 % (94-97); ABG PCO2 32 mmHg (35-45); ABG PH 7.51 (7.35-7.45); ABG PO2 109 mmHg (83-108); ABG TCO2 27 mmol/L (19-24)
[2017-12-17] MEDS: SODIUM CHLORIDE 0.9% 500 ML IV SCH ×3 (14:49→15:51)
[2017-12-17 14:55] LABS: INR 1.1 (<1.2); Partial Thromboplastin Time 22.8 sec (22.0-30.0)
[2017-12-17 14:58] LABS: ALT 67 U/L (9-52); AST 116 U/L (14-36); Albumin 3.4 g/dL (3.5-5.0); Alkaline Phosphatase 205 U/L (38-126); Anion Gap 12 mmol/L; Blood Urea Nitrogen 14 mg/dL (7-17); Carbon Dioxide 27 mmol/L (22-30); Chloride 90 mmol/L (98-107); Glucose 162 mg/dL (74-99); Potassium 3.9 mmol/L (3.5-5.1); Sodium 129 mmol/L (137-145); Total Bilirubin 1.7 mg/dL (0.2-1.3)
--- NOTE | 2017-12-17 14:58 | ED ---
SOB HPI - General Chief Complaint: Shortness of Breath Stated Complaint: SOB Time Seen by Provider: 12/17/17 14:14 Source: patient Mode of arrival: wheelchair Limitations: no limitations - History of Present Illness Initial Comments: This is a 67-year-old female with a history of ulnar fibrosis who presents emergency department for worsening shortness of breath and cough. She follows with Dr. Solomon for pulmonology. She states it's been going on for the last 12- 24 hours and gradually worsening. She typically does not wear oxygen at home however is being evaluated for that by Dr. Solomon shot tomorrow. She states that she had worsening shortness of breath and coughing so she decided come emergency department. She admits to feeling feverish and having chills at home. Also admits to some generalized body aches. Denies any chest pain. No nausea, vomiting, or diarrhea. Denies any other acute complaints at this time. - Related Data Home Medications Medication Instructions Recorded Confirmed Temazepam [Restoril] 15 mg PO HS PRN 05/14/15 12/17/17 Albuterol Sulfate [Proair Hfa] 2 puff INHALATION RT-QID PRN 02/08/17 12/17/17 Cetirizine HCl [Zyrtec] 10 mg PO DAILY 02/08/17 12/17/17 Fluticasone Nasal [place] [Flonase 1 spray EA NOSTRIL DAILY PRN 02/08/17 12/17/17 Nasal [place]] Valsartan [Diovan] 160 mg PO DAILY 04/20/17 12/17/17 Aspirin 325 mg PO DAILY 12/17/17 12/17/17 Biotin 5 mg PO DAILY 12/17/17 12/17/17 Budesonide [Pulmicort Flexhaler] 2 puff INHALATION RT-BID 12/17/17 12/17/17 Furosemide [Lasix] 20 mg PO DAILY 12/17/17 12/17/17 Garlic Cambogin 3 tab PO DAILY 12/17/17 12/17/17 Guaifenesin/Dextromethorphan 1 tab PO Q12H PRN 12/17/17 12/17/17 [Mucinex Dm ER 1,200-60 mg Tab] Hydrochlorothiazide [Hydrodiuril] 25 mg PO DAILY 12/17/17 12/17/17 Milk Thistle 240 mg PO DAILY 12/17/17 12/17/17 Naproxen Sodium [Aleve] 220 mg PO BID PRN 12/17/17 12/17/17 guaiFENesin-DM 100-10MG/5ML 5 ml PO Q6H PRN 12/17/17 12/17/17 [Robitussin DM] metFORMIN HCL ER [Glucophage Xr] 1,000 mg PO PC-SUPPER 12/17/17 12/17/17 Previous Rx's Medication Instructions Recorded oxyCODONE HCL [OxyIR] 5 mg PO Q4HR PRN #40 tab 04/24/17 Allergies Allergy/AdvReac Type Severity Reaction Status Date / Time amoxicillin trihydrate Allergy Rash/Hives Verified 12/17/17 14:54 [From Augmentin] lincomycin HCl Allergy Rash/Hives Verified 12/17/17 14:54 [From Lincocin] potassium clavulanate Allergy Rash/Hives Verified 12/17/17 14:54 [From Augmentin] procainamide Allergy Unknown Verified 12/17/17 14:54 tocainide [From Tonocard] Allergy Unknown Verified 12/17/17 14:54 avocado AdvReac CANKER Verified 12/17/17 14:54 SORES IN MOUTH tree nut [Pecan] AdvReac CANKER Verified 12/17/17 14:54 SORES IN MOUTH Review of Systems ROS Statement: Those systems with pertinent positive or pertinent negative responses have been documented in the HPI. ROS Other: All systems not noted in ROS Statement are negative. Past Medical History Past Medical History: Cancer, Diabetes Mellitus, GERD/Reflux, Hypertension, Osteoarthritis (OA) Additional Past Medical History / Comment(s): hx pericarditis, irregular heart rate with trigeminy,bigeminy, fx neck C2- limited movement of neck wears neck collar, need assistance getting up and down also has hx falls r/t mobility, elevated liver enzymes, hx breast cancer, pulmonary fibrosis History of Any Multi-Drug Resistant Organisms: None Reported Past Surgical History: Breast Surgery, Section, Orthopedic Surgery Additional Past Surgical History / Comment(s): cervical fusion c-2, lt breast lumpectomy, lt knee meniscus repair, vocal cord surgery x3, bunionectomy rt foot , cataracts, lasik Past Anesthesia/Blood Transfusion Reactions: Postoperative Nausea & Vomiting ( PONV) Past Psychological History: Anxiety, Depression Smoking Status: Never smoker Past Alcohol Use History: Daily Past Drug Use History: None Reported - Past Family History Brother(s) Family Medical History: Cancer Additional Family Medical History / Comment(s): prostate General Exam - General Exam Comments Initial Comments: Constitutional: Awake alert Appears comfortable Head: Normocephalic atraumatic Eyes: no conjunctival injection No scleral icterus EOMI Neck: No JVD Supple Heart: Regular rate rhythm normal S1-S2 no murmurs Lungs: Patient is to With accessory muscle use, bilateral inspiratory and expiratory wheeze No rales Abdomen: Soft nondistended nontender Extremities: Non edematous DP pulses intact Radial pulses intact Neuro: A&Ox3 No focal neurologic deficits Psych: Appropriate mood and affect Limitations: no limitations Course Vital Signs 12/17/17 12/17/17 12/17/17 13:54 14:30 14:33 Temperature 100.1 F H Pulse Rate 119 H 111 H Respiratory 28 H 36 H Rate Blood Pressure 110/58 O2 Sat by Pulse 88 L Oximetry 12/17/17 14:58 Temperature Pulse Rate 114 H Respiratory Rate Blood Pressure O2 Sat by Pulse Oximetry - Reevaluation(s) Reevaluation #1: 12/17/17 14:57 EKG showing sinus tachycardia with a rate of 111. There is no abnormal ST segment changes or T-wave inversions. QTC 14. Other intervals normal. No ectopy. Interpretation is difficult due to artifact from patient movement Medical Decision Making - Medical Decision Making This is a 59-year-old female with a history of pulmonic fibrosis who presents emergency department for worsening shortness of breath. She was found to be febrile and tachypneic on arrival. She is also tachycardic. Her oxygen saturations were in the low 80s and she was at first placed on a nonrebreather mask. She was given a fluid bolus and had a chest x-ray performed. Chest x- ray showed possible fluid congestion however due to this patient's present symptoms I'm concern for pneumonia and she was given breathing treatments which improved her breathing. ABG was unremarkable. Patient is currently on nasal cannula at 4 L satting in the high 90s. The patient was started on Levaquin for sepsis and pneumonia. She'll be admitted to the hospital with Dr. Mendez on consult. Patient was updated on this and agrees. - Lab Data Result diagrams: 12/17/17 14:25 12/17/17 14:25 Lab Results 12/17/17 12/17/17 12/17/17 Range/Units 14:25 14:25 14:25 WBC 17.5 H (3.8-10.6) k/uL RBC 3.97 (3.80-5.40) m/uL Hgb 11.4 (11.4-16.0) gm/dL Hct 36.2 (34.0-46.0) % MCV 91.3 D (80.0-100.0) fL MCH 28.8 (25.0-35.0) pg MCHC 31.5 (31.0-37.0) g/dL RDW 15.6 H (11.5-15.5) % Plt Count 481 H D (150-450) k/uL Neutrophils % (Manual) 68 % Band Neutrophils % 8 % Lymphocytes % (Manual) 15 % Monocytes % (Manual) 8 % Eosinophils % (Manual) 1 % Metamyelocytes % 1 % Myelocytes % 1 % Neutrophils # (Manual) 13.30 H (1.3-7.7) k/uL Lymphocytes # (Manual) 2.63 (1.0-4.8) k/uL Monocytes # (Manual) 1.40 H (0-1.0) k/uL Eosinophils # (Manual) 0.18 (0-0.7) k/uL Metamyelocytes # (Man) 0.18 H (0) k/uL Myelocytes # (Manual) 0.18 H (0) k/uL Nucleated RBCs 0 (0-0) /100 WBC Manual Slide Review Performed Polychromasia Present Hypochromasia Slight PT (9.0-12.0) sec INR (<1.2) APTT (22.0-30.0) sec Sample Site ABG pH (7.35-7.45) ABG pCO2 (35-45) mmHg ABG pO2 (83-108) mmHg ABG HCO3 (21-25) mmol/L ABG Total CO2 (19-24) mmol/L ABG O2 Saturation (94-97) % ABG Base Excess mmol/L Pete Test FiO2 % Sodium 129 L (137-145) mmol/L Potassium 3.9 (3.5-5.1) mmol/L Chloride 90 L (98-107) mmol/L Carbon Dioxide 27 (22-30) mmol/L Anion Gap 12 mmol/L BUN 14 (7-17) mg/dL Creatinine 0.79 (0.52-1.04) mg/dL Est GFR (MDRD) Af Amer >60 (>60 ml/min/1.73 sqM) Est GFR (MDRD) Non-Af >60 (>60 ml/min/1.73 sqM) Glucose 162 H (74-99) mg/dL Plasma Lactic Acid [place] 4.2 H* (0.7-2.0) mmol/L Calcium 9.0 (8.4-10.2) mg/dL Total Bilirubin 1.7 H (0.2-1.3) mg/dL AST 116 H (14-36) U/L ALT 67 H (9-52) U/L Alkaline Phosphatase 205 H (38-126) U/L Troponin I (0.000-0.034) ng/mL Total Protein 7.0 (6.3-8.2) g/dL Albumin 3.4 L (3.5-5.0) g/dL Influenza Type A RNA (Not Detectd) Influenza Type B (PCR) (Not Detectd) 12/17/17 12/17/17 12/17/17 Range/Units 14:25 14:25 14:33 WBC (3.8-10.6) k/uL RBC (3.80-5.40) m/uL Hgb (11.4-16.0) gm/dL Hct (34.0-46.0) % MCV (80.0-100.0) fL MCH (25.0-35.0) pg MCHC (31.0-37.0) g/dL RDW (11.5-15.5) % Plt Count (150-450) k/uL Neutrophils % (Manual) % Band Neutrophils % % Lymphocytes % (Manual) % Monocytes % (Manual) % Eosinophils % (Manual) % Metamyelocytes % % Myelocytes % % Neutrophils # (Manual) (1.3-7.7) k/uL Lymphocytes # (Manual) (1.0-4.8) k/uL Monocytes # (Manual) (0-1.0) k/uL Eosinophils # (Manual) (0-0.7) k/uL Metamyelocytes # (Man) (0) k/uL Myelocytes # (Manual) (0) k/uL Nucleated RBCs (0-0) /100 WBC Manual Slide Review Polychromasia Hypochromasia PT 11.0 (9.0-12.0) sec INR 1.1 (<1.2) APTT 22.8 (22.0-30.0) sec Sample Site RRA ABG pH 7.51 H (7.35-7.45) ABG pCO2 32 L (35-45) mmHg ABG pO2 109 H (83-108) mmHg ABG HCO3 26 H (21-25) mmol/L ABG Total CO2 27 H (19-24) mmol/L ABG O2 Saturation 99.3 H (94-97) % ABG Base Excess 2.8 mmol/L Pete Test Yes FiO2 90 % Sodium (137-145) mmol/L Potassium (3.5-5.1) mmol/L Chloride (98-107) mmol/L Carbon Dioxide (22-30) mmol/L Anion Gap mmol/L BUN (7-17) mg/dL Creatinine (0.52-1.04) mg/dL Est GFR (MDRD) Af Amer (>60 ml/min/1.73 sqM) Est GFR (MDRD) Non-Af (>60 ml/min/1.73 sqM) Glucose (74-99) mg/dL Plasma Lactic Acid [place] (0.7-2.0) mmol/L Calcium (8.4-10.2) mg/dL Total Bilirubin (0.2-1.3) mg/dL AST (14-36) U/L ALT (9-52) U/L Alkaline Phosphatase (38-126) U/L Troponin I 0.017 (0.000-0.034) ng/mL Total Protein (6.3-8.2) g/dL Albumin (3.5-5.0) g/dL Influenza Type A RNA (Not Detectd) Influenza Type B (PCR) (Not Detectd) 12/17/17 Range/Units 15:03 WBC (3.8-10.6) k/uL RBC (3.80-5.40) m/uL Hgb (11.4-16.0) gm/dL Hct (34.0-46.0) % MCV (80.0-100.0) fL MCH (25.0-35.0) pg MCHC (31.0-37.0) g/dL RDW (11.5-15.5) % Plt Count (150-450) k/uL Neutrophils % (Manual) % Band Neutrophils % % Lymphocytes % (Manual) % Monocytes % (Manual) % Eosinophils % (Manual) % Metamyelocytes % % Myelocytes % % Neutrophils # (Manual) (1.3-7.7) k/uL Lymphocytes # (Manual) (1.0-4.8) k/uL Monocytes # (Manual) (0-1.0) k/uL Eosinophils # (Manual) (0-0.7) k/uL Metamyelocytes # (Man) (0) k/uL Myelocytes # (Manual) (0) k/uL Nucleated RBCs (0-0) /100 WBC Manual Slide Review Polychromasia Hypochromasia PT (9.0-12.0) sec INR (<1.2) APTT (22.0-30.0) sec Sample Site ABG pH (7.35-7.45) ABG pCO2 (35-45) mmHg ABG pO2 (83-108) mmHg ABG HCO3 (21-25) mmol/L ABG Total CO2 (19-24) mmol/L ABG O2 Saturation (94-97) % ABG Base Excess mmol/L Pete Test FiO2 % Sodium (137-145) mmol/L Potassium (3.5-5.1) mmol/L Chloride (98-107) mmol/L Carbon Dioxide (22-30) mmol/L Anion Gap mmol/L BUN (7-17) mg/dL Creatinine (0.52-1.04) mg/dL Est GFR (MDRD) Af Amer (>60 ml/min/1.73 sqM) Est GFR (MDRD) Non-Af (>60 ml/min/1.73 sqM) Glucose (74-99) mg/dL Plasma Lactic Acid [place] (0.7-2.0) mmol/L Calcium (8.4-10.2) mg/dL Total Bilirubin (0.2-1.3) mg/dL AST (14-36) U/L ALT (9-52) U/L Alkaline Phosphatase (38-126) U/L Troponin I (0.000-0.034) ng/mL Total Protein (6.3-8.2) g/dL Albumin (3.5-5.0) g/dL Influenza Type A RNA Not Detected (Not Detectd) Influenza Type B (PCR) Not Detected (Not Detectd) Disposition Clinical Impression: Severe sepsis, CAP (community acquired pneumonia), Pulmonary fibrosis Disposition: ADMITTED IP TO THIS HOSP Condition: Stable
--- NOTE | 2017-12-17 15:09 | XR ---
EXAMINATION TYPE: XR chest 1V portable DATE OF EXAM: 12/17/2017 COMPARISON: Chest x-ray April 21, 2017 HISTORY: Fever and cough. Shortness of breath. TECHNIQUE: Single AP portable frontal upright view of the chest is obtained. FINDINGS: There is increasing interstitial prominence bilaterally. There is no new focal airspace o pacity or pneumothorax seen bilaterally .No large pleural effusion is present bilaterally The cardiac silhouette size remains within normal limits. Post surgical changes lower cervical spine is partiall y imaged. IMPRESSION: New mild to moderate diffuse interstitial edema felt present, correlate for fluid overlo ad state.
[2017-12-17 15:17] LABS: HCT 36.2 % (34.0-46.0); HGB 11.4 gm/dL (11.4-16.0); Hypochromasia Slight; MCH 28.8 pg (25.0-35.0); MCHC 31.5 g/dL (31.0-37.0); Mean Platelet Volume 6.6; RBC 3.97 m/uL (3.80-5.40); RDW 15.6 % (11.5-15.5); WBC 17.5 k/uL (3.8-10.6)
[2017-12-17 15:19] LABS: MCV 91.3 fL (80.0-100.0)
[2017-12-17 15:20] LABS: Platelet Count 481 k/uL (150-450)
[2017-12-17] MEDS ORDERED: LEVOFLOXACIN 500MG-D5W PMX 500 MG in DEXTROSE/WATER 1 100ML.BAG IVPB STA (15:28)
[2017-12-17 15:55] LABS: Band Neutrophils % 8 %; Eosinophils # (M) 0.18 k/uL (0-0.7); Lymphocytes # (M) 2.63 k/uL (1.0-4.8); Metamyelocytes # (M) 0.18 k/uL (0); Metamyelocytes % 1 %; Myelocytes # (M) 0.18 k/uL (0); Myelocytes % 1 %; Neutrophils % (M) 68 %; Nucleated Red Blood Cells 0 /100 WBC (0-0); Polychromasia Present; Total Cells Counted 200
[2017-12-17] MEDS ORDERED: NAPROXEN 250 MG TAB PO PRN (16:00)
[2017-12-17] MEDS ORDERED: FLUTICASONE 50MCG/SPRAY NASAL 16GM EA NOSTRIL PRN (16:00)
[2017-12-17 18:24] LABS: Glucose,Whole Blood 286 mg/dL (75-99)
[2017-12-17] MEDS ORDERED: metFORMIN 500 MG TAB PO SCH (18:30)
[2017-12-17] MEDS: ENOXAPARIN 40 MG/0.4 ML SYRINGE SQ SCH (19:32)
[2017-12-17] MEDS ORDERED: NALOXONE 0.4 MG/ML 1 ML VIAL IV PRN (19:58)
[2017-12-17] MEDS: PANTOPRAZOLE 40 MG/10 ML VIAL IVP SCH (20:18)
[2017-12-17] MEDS: SODIUM CHLORIDE 0.9% 1,000 ML IV SCH (20:19)
[2017-12-17 20:59] LABS: Glucose,Whole Blood 370 mg/dL (75-99)
[2017-12-17] MEDS ORDERED: INSULIN ASPART 100 UNIT/ML 1 ML 10 ML VIAL SQ SCH (21:00)
[2017-12-17] MEDS: BUDESONIDE 1 MG/2 ML NEBU INHALATION SCH (21:08)
[2017-12-17] MEDS: TEMAZEPAM 15 MG CAP PO PRN (22:15)
[2017-12-17 22:25] LABS: Glucose,Whole Blood 333 mg/dL (75-99)
[2017-12-17] MEDS ORDERED: INSULIN REGULAR BOLUS (FROM DRIP BAG) IV PRN (22:26)
[2017-12-17] MEDS ORDERED: INSULIN REGULAR 100 UNIT in SODIUM CHLORIDE 0.9% 100 ML IV SCH (22:30)
[2017-12-17] MEDS: IPRATROPIUM-ALBUTEROL 3 ML NEB INHALATION PRN (23:27)
[2017-12-17 23:30] LABS: Glucose,Whole Blood 303 mg/dL (75-99)
[2017-12-18] MEDS: guaiFENesin-DM 100-10MG/5ML 10 ML CUP PO PRN ×2 (00:10→23:29)
[2017-12-18 00:12] LABS: Glucose,Whole Blood 283 mg/dL (75-99)
[2017-12-18] MEDS: methylPREDNISolone SOD SUCCI 125 MG/2 ML VIAL IV SCH ×5 (00:12→23:32)
[2017-12-18 00:34] LABS: Appearance,Urine Clear (Clear); Bilirubin,Urine Negative (Negative); Blood,Urine Negative (Negative); Color,Urine Yellow; Glucose,Urine (UA) 4+ (Negative); Ketones,Urine Negative (Negative); Leukocyte Esterase,Urine Negative (Negative); Nitrite,Urine Negative (Negative); Protein,Urine Negative (Negative); Specific Gravity,Urine 1.004 (1.001-1.035); Urobilinogen,Urine <2.0 mg/dL (<2.0)
[2017-12-18 00:55] LABS: Glucose,Whole Blood 218 mg/dL (75-99)
[2017-12-18 02:05] LABS: Glucose,Whole Blood 167 mg/dL (75-99)
[2017-12-18 03:02] LABS: Glucose,Whole Blood 183 mg/dL (75-99)
[2017-12-18 04:22] LABS: Hemoglobin A1C 8.5 % (4.0-6.0)
--- NOTE | 2017-12-18 05:35 | HP ---
HISTORY AND PHYSICAL DATE OF SERVICE: 12/17/2017. CHIEF COMPLAINT: Shortness of breath. HISTORY OF PRESENT ILLNESS: This 67-year-old woman with a past medical history of multiple medical problems, diabetes, hypertension, GERD, history of DJD, history of pericarditis, history of fracture of C2, being followed by Dr. Flores and Dr. Mendez in the outpatient setting, was complaining of significant shortness of breath. The shortness of breath is gradually worsening and which is worse during the past 12 to 24 hours and the patient came to [facility] and was admitted for further evaluation and treatment. The patient also complaining of feverish feeling. There is no history any headache , loss of consciousness, seizures at this time. The patient had a fever present on admission. Pulse ox 88% and on non-rebreather mask which is improved. Patient is tachypneic and tachycardic, present on admission indicating acute hypoxic respiratory failure. The chest x-ray which was reviewed personally by me showed bilateral shadows suggestive of possible pneumonia superimposed pulmonary fibrosis. There is no history any headache, loss of consciousness or seizures. PAST MEDICAL HISTORY: History of diabetes, GERD, hypertension, DJD, history of pericarditis. MEDICATIONS: Medications prior to admission include home medications are: 1. Diovan 160 mg p.o. daily. 2. Pulmicort 2 puffs b.i.d. 3. Oxy IR 5 mg q.4h. 4. Glucophage XR 1000 mg at supper. 5. Robitussin DM 5 mL q.6h p.r.n. 6. Restoril 50 mg p.o. p.r.n. 7. Aleve 220 mg p.o. b.i.d. 8. Milk thistle 240 mg p.o. 9. HydroDIURIL 25 mg. 10.Mucinex 1 tab p.o. b.i.d. 11.Garlic 3 tabs p.o. daily. 12.Lasix 20 mg daily. 13.Flonase 1 spray daily p.r.n. 14. 10 mg daily. 15.Biotin 5 mg p.o. daily. 16.Aspirin 320 mg daily. 17.Albuterol 2 puffs q.i.d. p.r.n. ALLERGIES: ARE AMOXICILLIN, LINCOMYCIN, POTASSIUM, AUGMENTIN, PROCAINAMIDE, AVOCADO, TREE NUTS. FAMILY HISTORY: Family history of cancer prostate cancer in the family. SOCIAL HISTORY: No history of smoking. Occasional alcohol intake. REVIEW OF SYSTEMS: ENT: No diminished vision. No diminished hearing. Cardiovascular: As mentioned earlier. GI no nausea or vomiting. : No dysuria. NERVOUS SYSTEM: No numbness or weakness. ALLERGY/IMMUNOLOGY: As mentioned earlier. Musculoskeletal:As mentioned earlier. HEMATOLOGY/ONCOLOGY: No history of anemia. Endocrine: Diabetes. Constitutional: As mentioned earlier. Dermatology: Negative. Rheumatology: Negative. Psychiatric: As mentioned earlier. PHYSICAL EXAMINATION: Pulse is 119, blood pressure 110/50, respiration 20, temperature 100.1, pulse ox 88% on room air and improving on with mask. HEENT: Conjunctivae normal. Oral mucosa moist. Neck is no jugular venous distention. No carotid bruit. No lymph node enlargement. Cardiovascular system: S1, S2 muffled. No S3, no S4. Respiratory: Breath sounds diminished in the bases. Bilateral scattered rhonchi and expiratory wheezing and crackles. ABDOMEN: Soft, nontender. No mass palpable. Legs no edema and no swelling. NERVOUS SYSTEM: Higher functions as mentioned earlier, moves all 4 limbs, no focal deficits. Lymphatics: No lymph nodes palpable in the neck, axillae or groin. Skin no ulcer, rash or bleeding. LABS: At this time shows lactic acid 3.4, WBC 17.5. ABG showed pH of 7.51, glucose 303. Total bilirubin is 1.7, ALT is 116. Influenza is negative. ASSESSMENT: 1. Possible chronic obstructive pulmonary disease or acute bilateral pulmonary fibrosis acute exacerbation with acute bilateral pneumonia possibly gram- negative with sepsis and acute hypoxic respiratory failure. 2. Hyponatremia. 3. Increased WBC. 4. Diabetes type 2. 5. Increased bilirubin. 6. Increased AST/ALT. 7. Gastroesophageal reflux disease. 8. Hypertension. 9. History of degenerative joint disease. 10.History of pericarditis. 11.History of cervical C2 fracture. 12.History of breast surgery. 13.Anxiety/depression. RECOMMENDATIONS AND DISCUSSION: In this 67-year-old woman who presented with multiple complex medical issues, we will monitor the patient closely. Continue the current medications, management and symptomatic treatment. Repeat labs. Broad-spectrum IV antibiotics. Consult Dr. Li and transfer to ICU and complete management. Bronchodilators, steroids have been initiated. Otherwise, overall prognosis is guarded. I would also recommend serum mycoplasma IgM and as well as the urine Legionella antigen as well. Otherwise prognosis guarded because of the because of multiple complex medical issues. Further recommendations to follow. Discussed with the family who understands and agrees. Medication reconciliation was also performed. BHAKTI / RAMIREZN: [id number] / MTDD
[2017-12-18 05:36] LABS: Glucose,Whole Blood 187 mg/dL (75-99)
[2017-12-18 06:07] LABS: Glucose,Whole Blood 176 mg/dL (75-99)
[2017-12-18 06:14] LABS: Basophils % (A) 0 %; Eosinophils % (A) 0 %; HCT 33.2 % (34.0-46.0); Hypochromasia Marked; Lymphocytes # (A) 0.8 k/uL (1.0-4.8); Lymphocytes % (A) 7 %; MCH 28.9 pg (25.0-35.0); MCHC 29.4 g/dL (31.0-37.0); Macrocytosis Slight; Mean Platelet Volume 6.7; Monocytes # (A) 0.3 k/uL (0-1.0); Monocytes % (A) 3 %; Neutrophils # (A) 9.4 k/uL (1.3-7.7); Neutrophils % (A) 88 %; Platelet Count 236 k/uL (150-450); RBC 3.38 m/uL (3.80-5.40); RDW 15.6 % (11.5-15.5); WBC 10.6 k/uL (3.8-10.6)
[2017-12-18] MEDS: IPRATROPIUM-ALBUTEROL 3 ML NEB INHALATION PRN ×2 (06:14→19:58)
[2017-12-18] MEDS: BUDESONIDE 1 MG/2 ML NEBU INHALATION SCH ×2 (06:15→19:58)
[2017-12-18 06:27] LABS: HGB 9.7 gm/dL (11.4-16.0); MCV 98.3 fL (80.0-100.0)
[2017-12-18 06:34] LABS: Anion Gap 12 mmol/L; Blood Urea Nitrogen 17 mg/dL (7-17); Calcium 8.1 mg/dL (8.4-10.2); Carbon Dioxide 23 mmol/L (22-30); Chloride 95 mmol/L (98-107); Glucose 176 mg/dL (74-99); Magnesium 1.8 mg/dL (1.6-2.3); Phosphorus 2.5 mg/dL (2.5-4.5); Sodium 130 mmol/L (137-145)
[2017-12-18] MEDS ORDERED: Magnesium Replacement Protocol 1 EACH MISC MISCELLANE PRN (06:48)
[2017-12-18 06:57] LABS: Glucose,Whole Blood 194 mg/dL (75-99)
--- NOTE | 2017-12-18 07:19 | XR ---
EXAMINATION TYPE: XR chest 1V portable DATE OF EXAM: 12/18/2017 Comparison: 12/17/2017 Clinical History: 67 year-old female follow-up pneumonia Findings: ACF hardware and posterior cervical fusion changes. Heart remains upper limits of normal in size. Dif fuse interstitial densities persist but the more confluent densities in the left lung shows some impr ovement. Surgical clips projecting at the left breast suspect prior lumpectomy. Impression: Interval improvement. Suspect residual interstitial edema. The more confluent left lung densities on prior exam have improved.
[2017-12-18 08:07] LABS: Glucose,Whole Blood 185 mg/dL (75-99)
[2017-12-18] MEDS: MAGNESIUM SULFATE-D5W PMX 1 GM in DEXTROSE/WATER 1 100ML.BAG IVPB SCH ×2 (08:08→10:44)
[2017-12-18] MEDS: ASPIRIN 325 MG TAB PO SCH (08:08)
[2017-12-18] MEDS: ENOXAPARIN 40 MG/0.4 ML SYRINGE SQ SCH (08:08)
[2017-12-18] MEDS: FUROSEMIDE 20 MG TAB PO SCH (08:08)
[2017-12-18] MEDS: HYDROCHLOROTHIAZIDE 25 MG TAB PO SCH (08:09)
[2017-12-18] MEDS: LORATADINE 10 MG TAB PO SCH (08:09)
[2017-12-18] MEDS: VALSARTAN 160 MG TAB PO SCH (08:09)
[2017-12-18] MEDS: PANTOPRAZOLE 40 MG/10 ML VIAL IVP SCH (08:09)
[2017-12-18] MEDS: SODIUM CHLORIDE 0.9% 1,000 ML IV SCH ×2 (08:09→21:37)
[2017-12-18] MEDS ORDERED: MILK THISTLE PO SCH (09:00)
[2017-12-18] MEDS ORDERED: [UNRECOGNIZED DRUG - OTHER] PO SCH (09:00)
[2017-12-18] MEDS ORDERED: NON-FORMULARY DRUG (Biotin [Biotin] 5 MG) PO SCH (09:00)
[2017-12-18] MEDS ORDERED: FUROSEMIDE 10 MG/ML 2 ML VIAL IV STA (09:21)
--- NOTE | 2017-12-18 12:00 | P.CNPUL ---
History of Present Illness Consult date: 12/18/17 Requesting physician: Nelda Velasquez Reason for consult: pneumonia, pulmonary fibrosis Chief complaint: Shortness of breath, cough, and wheezing. History of present illness: This is a 67-year-old female with history of multiple medical problems including interstitial lung disease, chronic obstructive pulmonary disease, degenerative joint disease, previous history of pericarditis, GERD, hypertension , diabetes, and history of breast cancer. Normally she follows up with Dr. Mendez regarding her interstitial lung disease, no previous lung biopsy was done , but the patient had previous bronchoscopies and lavages which were nondiagnostic. Normally the patient is maintained on bronchodilators including albuterol and Pulmicort. Has been intermittently on doses of prednisone burst and taper. Patient presented to the ER yesterday with mostly one-day history of increased shortness of breath, cough, wheezing, cough is productive with whitish phlegm. Patient was also complaining of generalized body aches, chills at home, no chest pain, no nausea no vomiting, no diarrhea. Workup in the ER revealed evidence of leukocytosis, relative hypoxemia and respiratory alkalosis , mild hyponatremia with a sodium of 129, and lactic acidosis with lactic acid of 3.4. Patient will also noted to have slightly elevated transaminases, and slightly elevated troponin of 0.017. Viral screen was negative for influenza A and influenza B. Her initial chest x-ray showed evidence of interstitial lung disease, and worsening airspace disease in the left lower lobe and left midlung. The radiologist felt that the patient may have interstitial edema and possible fluid overload, however follow-up chest x-ray in spite of fluid boluses showed definite improvement with mostly residual interstitial lung disease noted. Clinically, I felt that the patient presented with acute left lower lobe pneumonia, with underlying interstitial lung disease, and sepsis. Patient is now on bronchodilators, back on her usual diuretics, antibiotics in the form of Levaquin, and she is on methylprednisolone 60 mg IV push every 6 hours. IV fluid is down to KVO, significant improvement noted over the last 24 hours, but the patient continues to have significant crackles or rhonchi and wheezes on physical examination today. Review of Systems 14 point review of systems were obtained, please refer to pertinent positives and negatives as per HPI, otherwise remaining systems are negative. Past Medical History Past Medical History: Cancer, Diabetes Mellitus, GERD/Reflux, Hypertension, Osteoarthritis (OA) Additional Past Medical History / Comment(s): hx pericarditis, irregular heart rate with trigeminy,bigeminy, fx neck C2- limited movement of neck wears neck collar, need assistance getting up and down also has hx falls r/t mobility, elevated liver enzymes, hx lt breast cancer, pulmonary fibrosis History of Any Multi-Drug Resistant Organisms: None Reported Past Surgical History: Breast Surgery, Section, Orthopedic Surgery Additional Past Surgical History / Comment(s): cervical fusion c-2, lt breast lumpectomy-3 reconstructive sx, lt knee meniscus repair, vocal cord surgery x3, bunionectomy rt foot , cataracts, total lt knee, lasik eye sx. Past Anesthesia/Blood Transfusion Reactions: Postoperative Nausea & Vomiting ( PONV) Smoking Status: Never smoker - Past Family History Brother(s) Family Medical History: Cancer Additional Family Medical History / Comment(s): prostate Medications and Allergies Home Medications Medication Instructions Recorded Confirmed Type Temazepam [Restoril] 15 mg PO HS PRN 05/14/15 12/17/17 History Albuterol Sulfate [Proair Hfa] 2 puff INHALATION RT-QID PRN 02/08/17 12/17/17 History Cetirizine HCl [Zyrtec] 10 mg PO DAILY 02/08/17 12/17/17 History Fluticasone Nasal [place] [Flonase 1 spray EA NOSTRIL DAILY PRN 02/08/17 12/17/17 History Nasal [place]] Valsartan [Diovan] 160 mg PO DAILY 04/20/17 12/17/17 History oxyCODONE HCL [OxyIR] 5 mg PO Q4HR PRN #40 tab 04/24/17 12/17/17 Rx Aspirin 325 mg PO DAILY 12/17/17 12/17/17 History Biotin 5 mg PO DAILY 12/17/17 12/17/17 History Budesonide [Pulmicort Flexhaler] 2 puff INHALATION RT-BID 12/17/17 12/17/17 History Furosemide [Lasix] 20 mg PO DAILY 12/17/17 12/17/17 History Garlic Cambogin 3 tab PO DAILY 12/17/17 12/17/17 History Guaifenesin/Dextromethorphan 1 tab PO Q12H PRN 12/17/17 12/17/17 History [Mucinex Dm ER 1,200-60 mg Tab] Hydrochlorothiazide [Hydrodiuril] 25 mg PO DAILY 12/17/17 12/17/17 History Milk Thistle 240 mg PO DAILY 12/17/17 12/17/17 History Naproxen Sodium [Aleve] 220 mg PO BID PRN 12/17/17 12/17/17 History guaiFENesin-DM 100-10MG/5ML 5 ml PO Q6H PRN 12/17/17 12/17/17 History [Robitussin DM] metFORMIN HCL ER [Glucophage Xr] 1,000 mg PO PC-SUPPER 12/17/17 12/17/17 History Allergies Allergy/AdvReac Type Severity Reaction Status Date / Time amoxicillin trihydrate Allergy Rash/Hives Verified 12/17/17 14:54 [From Augmentin] lincomycin HCl Allergy Rash/Hives Verified 12/17/17 14:54 [From Lincocin] potassium clavulanate Allergy Rash/Hives Verified 12/17/17 14:54 [From Augmentin] procainamide Allergy Unknown Verified 12/17/17 14:54 tocainide [From Tonocard] Allergy Unknown Verified 12/17/17 14:54 avocado AdvReac CANKER Verified 12/17/17 14:54 SORES IN MOUTH tree nut [Pecan] AdvReac CANKER Verified 12/17/17 14:54 SORES IN MOUTH Physical Exam Vitals: Vital Signs Temp Pulse Pulse Resp BP BP Pulse Ox 12/18/17 09:00 83 20 113/63 99 12/18/17 08:00 97.7 F 91 84 20 102/65 98 12/18/17 07:00 92 23 140/68 98 12/18/17 06:27 79 12/18/17 06:15 77 12/18/17 06:00 72 20 116/82 100 12/18/17 05:00 78 21 102/58 98 12/18/17 04:00 93 45 H 101/71 87 L 12/18/17 03:00 70 20 122/59 97 12/18/17 02:00 77 26 H 102/60 98 12/18/17 01:00 85 32 H 108/67 99 12/18/17 00:00 98.8 F 81 20 111/60 98 12/17/17 23:37 84 12/17/17 23:30 78 22 134/65 100 12/17/17 23:27 78 12/17/17 23:00 88 12/17/17 22:55 84 32 H 118/54 97 12/17/17 22:00 88 27 H 128/69 98 12/17/17 21:30 93 28 H 131/80 98 12/17/17 21:00 91 20 136/63 98 12/17/17 20:30 95 25 H 111/65 97 12/17/17 20:00 98.5 F 97 23 113/84 98 12/17/17 19:30 93 23 117/65 98 12/17/17 19:00 98 27 H 113/70 97 12/17/17 18:30 95 97/69 98 12/17/17 18:10 99.4 F 98 16 97/69 97 12/17/17 18:03 112 H 12/17/17 17:30 99.5 F 96 20 103/65 97 12/17/17 16:15 108 H 20 112/58 98 12/17/17 15:45 114 H 20 97/53 97 12/17/17 14:58 114 H 12/17/17 14:33 111 H 12/17/17 14:30 36 H 12/17/17 13:54 100.1 F H 119 H 28 H 110/58 88 L Intake and Output 12/17/17 12/18/17 12/18/17 22:59 06:59 14:59 Intake Total 300 645.130 170 Output Total 1 1175 575 Balance 299 -529.870 -405 Intake: IV 75 95 NS 75 95 Intake, IV Titration 225 645.130 75 Amount Insulin Regular 100 unit 45.130 In Sodium Chloride 0.9% 100 ml @ Per Protocol IV .Q0M KARL Rx#:[id number] Sodium Chloride 0.9% 1, 225 600 75 000 ml @ 20 mls/hr IV . Q24H KARL Rx#:[id number] Output: Urine 1175 575 Stool 1 Other: Voiding Method Bedpan Bedside Commode Indwelling Catheter Bedpan # Voids 1 1 # Bowel Movements 1 Weight 88 kg 88 kg Patient Weight 12/19/17 06:59 Weight 88 kg Constitutional: Physical examination revealed a 67-year-old female, slightly anxious, in no distress. Presently on nasal cannula. Few liters. Head: Atraumatic, normocephalic, Eyes: PERRLA, EOMI, no icterus, Neck: Supple no neck masses, moist mucous membranes, no stridor no lymphadenopathy no thyromegaly Heart: Regular rate rhythm normal S1-S2 no murmurs Lungs: Crackles and rhonchi and wheezes noted bilaterally, no chest wall tenderness, Abdomen: Obese soft nontender no megaly no rebound no guarding. Positive bowel sounds. Extremities: No clubbing edema or cyanosis, normal pulses bilaterally. Neuro: no gross focal neurologic deficit. Alert oriented 3. Psych: Slightly anxious, normal mental status examination. Results - Laboratory Findings CBC and BMP: 12/18/17 06:03 12/18/17 06:03 ABG ABG pH 7.51 (7.35-7.45) H 12/17/17 14:33 ABG pCO2 32 mmHg (35-45) L 12/17/17 14:33 ABG pO2 109 mmHg (83-108) H 12/17/17 14:33 ABG O2 Saturation 99.3 % (94-97) H 12/17/17 14:33 PT/INR, D-dimer PT 11.0 sec (9.0-12.0) 12/17/17 14:25 INR 1.1 (<1.2) 12/17/17 14:25 Abnormal lab findings: Abnormal Labs 12/17/17 12/17/17 12/17/17 14:25 14:25 14:25 WBC 17.5 H RBC Hgb Hct MCHC RDW 15.6 H Plt Count 481 H D Neutrophils # Neutrophils # (Manual) 13.30 H Lymphocytes # Monocytes # (Manual) 1.40 H Metamyelocytes # (Man) 0.18 H Myelocytes # (Manual) 0.18 H ABG pH ABG pCO2 ABG pO2 ABG HCO3 ABG Total CO2 ABG O2 Saturation Sodium 129 L Chloride 90 L Glucose 162 H POC Glucose (mg/dL) Hemoglobin A1c Plasma Lactic Acid Elkin 4.2 H* Calcium Total Bilirubin 1.7 H AST 116 H ALT 67 H Alkaline Phosphatase 205 H Albumin 3.4 L Urine Glucose (UA) 12/17/17 12/17/17 12/17/17 14:25 14:33 17:18 WBC RBC Hgb Hct MCHC RDW Plt Count Neutrophils # Neutrophils # (Manual) Lymphocytes # Monocytes # (Manual) Metamyelocytes # (Man) Myelocytes # (Manual) ABG pH 7.51 H ABG pCO2 32 L ABG pO2 109 H ABG HCO3 26 H ABG Total CO2 27 H ABG O2 Saturation 99.3 H Sodium Chloride Glucose POC Glucose (mg/dL) Hemoglobin A1c 8.5 H Plasma Lactic Acid Elkin 2.5 H* Calcium Total Bilirubin AST ALT Alkaline Phosphatase Albumin Urine Glucose (UA) 12/17/17 12/17/17 12/17/17 18:10 20:57 20:57 WBC RBC Hgb Hct MCHC RDW Plt Count Neutrophils # Neutrophils # (Manual) Lymphocytes # Monocytes # (Manual) Metamyelocytes # (Man) Myelocytes # (Manual) ABG pH ABG pCO2 ABG pO2 ABG HCO3 ABG Total CO2 ABG O2 Saturation Sodium Chloride Glucose POC Glucose (mg/dL) 286 H 370 H Hemoglobin A1c Plasma Lactic Acid Elkin 3.4 H* Calcium Total Bilirubin AST ALT Alkaline Phosphatase Albumin Urine Glucose (UA) 12/17/17 12/17/17 12/18/17 22:22 23:27 00:05 WBC RBC Hgb Hct MCHC RDW Plt Count Neutrophils # Neutrophils # (Manual) Lymphocytes # Monocytes # (Manual) Metamyelocytes # (Man) Myelocytes # (Manual) ABG pH ABG pCO2 ABG pO2 ABG HCO3 ABG Total CO2 ABG O2 Saturation Sodium Chloride Glucose POC Glucose (mg/dL) 333 H 303 H 283 H Hemoglobin A1c Plasma Lactic Acid Elkin Calcium Total Bilirubin AST ALT Alkaline Phosphatase Albumin Urine Glucose (UA) 12/18/17 12/18/17 12/18/17 00:25 00:54 02:01 WBC RBC Hgb Hct MCHC RDW Plt Count Neutrophils # Neutrophils # (Manual) Lymphocytes # Monocytes # (Manual) Metamyelocytes # (Man) Myelocytes # (Manual) ABG pH ABG pCO2 ABG pO2 ABG HCO3 ABG Total CO2 ABG O2 Saturation Sodium Chloride Glucose POC Glucose (mg/dL) 218 H 167 H Hemoglobin A1c Plasma Lactic Acid Elkin Calcium Total Bilirubin AST ALT Alkaline Phosphatase Albumin Urine Glucose (UA) 4+ H 12/18/17 12/18/17 12/18/17 03:00 05:33 06:03 WBC RBC 3.38 L Hgb 9.7 L D Hct 33.2 L MCHC 29.4 L RDW 15.6 H Plt Count Neutrophils # 9.4 H Neutrophils # (Manual) Lymphocytes # 0.8 L Monocytes # (Manual) Metamyelocytes # (Man) Myelocytes # (Manual) ABG pH ABG pCO2 ABG pO2 ABG HCO3 ABG Total CO2 ABG O2 Saturation Sodium Chloride Glucose POC Glucose (mg/dL) 183 H 187 H Hemoglobin A1c Plasma Lactic Acid [place]kin Calcium Total Bilirubin AST ALT Alkaline Phosphatase Albumin Urine Glucose (UA) 12/18/17 12/18/17 12/18/17 06:03 06:05 06:56 WBC RBC Hgb Hct MCHC RDW Plt Count Neutrophils # Neutrophils # (Manual) Lymphocytes # Monocytes # (Manual) Metamyelocytes # (Man) Myelocytes # (Manual) ABG pH ABG pCO2 ABG pO2 ABG HCO3 ABG Total CO2 ABG O2 Saturation Sodium 130 L Chloride 95 L Glucose 176 H POC Glucose (mg/dL) 176 H 194 H Hemoglobin A1c Plasma Lactic Acid [place] Calcium 8.1 L Total Bilirubin AST ALT Alkaline Phosphatase Albumin Urine Glucose (UA) 12/18/17 08:05 WBC RBC Hgb Hct MCHC RDW Plt Count Neutrophils # Neutrophils # (Manual) Lymphocytes # Monocytes # (Manual) Metamyelocytes # (Man) Myelocytes # (Manual) ABG pH ABG pCO2 ABG pO2 ABG HCO3 ABG Total CO2 ABG O2 Saturation Sodium Chloride Glucose POC Glucose (mg/dL) 185 H Hemoglobin A1c Plasma Lactic Acid [place]kin Calcium Total Bilirubin AST ALT Alkaline Phosphatase Albumin Urine Glucose (UA) - Diagnostic Findings Chest x-ray: image reviewed (Please refer to my interpretation of chest x-ray from HPI.) Assessment and Plan Assessment: Impression: Acute hypoxic respiratory failure, multifactorial, secondary to community-acquired pneumonia involving the left lower lobe, worsening pulmonary fibrosis, underlying COPD exacerbation, Acute sepsis secondary to left lower lobe pneumonia with lactic acidosis, responded to fluid boluses. Acute exacerbation of chronic obstructive lung disease and possibly exacerbation of underlying interstitial lung disease. Multiple comorbidities including history of breast cancer, type 2 diabetes, GERD with esophagitis, benign essential hypertension, osteoarthritis, C2 neck fracture, Recommendation: Continue present course of antibiotics, bronchodilators, IV steroids, sepsis protocol, patient seems to be hemodynamically stable today, and her labs have shown significant improvement, hence I can transfer the patient today to a regular medical floor. We'll continue to follow closely. Critical care time is 45 minutes. Time with Patient: Greater than 30
[2017-12-18 12:49] LABS: Glucose,Whole Blood 386 mg/dL (75-99)
[2017-12-18] MEDS: INSULIN ASPART 100 UNIT/ML 1 ML 10 ML VIAL SQ SCH ×3 (12:50→21:24)
[2017-12-18] MEDS: LEVOFLOXACIN 750MG-D5W PMX 750 MG in DEXTROSE/WATER 1 150ML.BAG IVPB SCH (15:33)
[2017-12-18 18:16] LABS: Glucose,Whole Blood 329 mg/dL (75-99)
[2017-12-18] MEDS: FLUTICASONE 50MCG/SPRAY NASAL 16GM EA NOSTRIL SCH ×2 (19:12→20:56)
--- NOTE | 2017-12-18 20:06 | PN ---
PROGRESS NOTE DATE OF SERVICE: 12/18/2017 This 67-year-old woman with a past medical history of multiple medical problems was admitted with COPD as well as pulmonary fibrosis, acute exacerbation. Patient also has bilateral pneumonia, left more than the right. Patient was found to have acute hypoxic respiratory failure. Patient is being monitored closely in the ICU. Past medical history reviewed. REVIEW OF SYSTEMS: CARDIOVASCULAR SYSTEM: No angina, palpitations. RESPIRATORY SYSTEM: As mentioned earlier. GI: As mentioned earlier. : No dysuria or retention NERVOUS SYSTEM: No numbness, weakness.. CURRENT MEDICATIONS: Current medications are reviewed and include: 1. DuoNeb q.i.d. and p.r.n. 2. Aspirin 325 mg daily. 3. Pulmicort 1 mg b.i.d. 4. Lovenox 40 mg subcutaneously daily. 5. Lasix 20 mg daily. 6. HydroDIURIL. 7. NovoLog. 8. Levaquin 750 daily. 9. Solu-Medrol 60 IV q.6. 10.Narcan. 11.Naprosyn. 12.Oxy-IR. 13.Diovan. PHYSICAL EXAMINATION: Patient is alert and oriented x3. Pulse is 92, blood pressure 115/68, respiration 20, temperature 97.2, pulse ox 94% on 2 L. HEENT: Conjunctivae normal. NECK: No jugular venous distention. CARDIOVASCULAR SYSTEM: S1, S2 muffled. RESPIRATORY SYSTEM: Breath sounds diminished at the bases. A few scattered rhonchi and crackles. ABDOMEN: Soft, nontender. No mass palpable. LEGS: No edema. No swelling. NERVOUS SYSTEM: Higher functions as mentioned earlier. Moves all 4 limbs. No focal motor or sensory deficit. LYMPHATICS: No lymph node palpable in neck, axillae or groin. SKIN: No ulcer, rash, bleeding. LABS: WBC 10.6, hemoglobin 9.6. Sodium 130, potassium 4. ASSESSMENT: 1. Chronic obstructive pulmonary disease, acute exacerbation, with acute bilateral pulmonary fibrosis, acute exacerbation, with acute bilateral pneumonia, possibly Gram-negative with sepsis with acute hypoxic respiratory failure. 2. Hyponatremia. 3. Increased white count. 4. Diabetes mellitus, type 2. 5. Increased bilirubin. 6. Increased AST, ALT. 7. History of gastroesophageal reflux disease. 8. Hypertension. 9. History of degenerative joint disease. 10.History of pericarditis. 11.History of cervical C2 fracture. 12.History of breast surgery. 13.Anxiety depression not otherwise specified. RECOMMENDATIONS AND DISCUSSION: I recommend to continue current medication, continue symptomatic treatment. Otherwise I will continue to monitor. Continue the bronchodilators. Continue with steroids. Continue with antibiotics. Monitor blood sugars closely. DVT prophylaxis. Prognosis guarded because of multiple complex medical issues. Further recommendations to follow. Discussed with the patient, who understands and agrees. MMODL / IJN: [id number] /
[2017-12-18 20:42] LABS: Glucose,Whole Blood 360 mg/dL (75-99)
[2017-12-18] MEDS ORDERED: INSULIN ASPART 100 UNIT/ML 1 ML 10 ML VIAL SQ ONE (21:30)
[2017-12-19] MEDS: TEMAZEPAM 15 MG CAP PO PRN (00:15)
[2017-12-19 05:15] LABS: Mycoplasma IgM Antibody 0.2 INDEX (<=0.90)
[2017-12-19] MEDS: methylPREDNISolone SOD SUCCI 125 MG/2 ML VIAL IV SCH ×2 (05:47→12:05)
[2017-12-19] MEDS: BUDESONIDE 1 MG/2 ML NEBU INHALATION SCH (07:22)
[2017-12-19] MEDS: IPRATROPIUM-ALBUTEROL 3 ML NEB INHALATION PRN ×3 (07:22→14:58)
[2017-12-19 07:29] LABS: Glucose,Whole Blood 421 mg/dL (75-99)
[2017-12-19] MEDS: INSULIN ASPART 100 UNIT/ML 1 ML 10 ML VIAL SQ SCH ×2 (08:01→11:47)
[2017-12-19] MEDS ORDERED: INSULIN ASPART 100 UNIT/ML 1 ML 10 ML VIAL SQ ONE ×2 (08:15→12:00)
[2017-12-19] MEDS: PANTOPRAZOLE 40 MG/10 ML VIAL IVP SCH (08:21)
[2017-12-19] MEDS: ENOXAPARIN 40 MG/0.4 ML SYRINGE SQ SCH (08:22)
[2017-12-19] MEDS: FLUTICASONE 50MCG/SPRAY NASAL 16GM EA NOSTRIL SCH (08:22)
[2017-12-19] MEDS: LORATADINE 10 MG TAB PO SCH (08:22)
[2017-12-19] MEDS: HYDROCHLOROTHIAZIDE 25 MG TAB PO SCH (08:22)
[2017-12-19] MEDS: ASPIRIN 325 MG TAB PO SCH (08:22)
[2017-12-19] MEDS: FUROSEMIDE 20 MG TAB PO SCH (08:22)
[2017-12-19] MEDS: VALSARTAN 160 MG TAB PO SCH (08:27)
--- NOTE | 2017-12-19 08:51 | XR ---
EXAMINATION TYPE: XR chest 1V DATE OF EXAM: 12/19/2017 CLINICAL HISTORY: Difficulty breathing in pneumonia progress study. TECHNIQUE: Single AP portable frontal upright view of the chest is obtained. COMPARISON: Chest x-ray from one day earlier and older studies. FINDINGS: There is partial visualization of surgical hardware in the cervical spine. There is chroni c parenchymal change redemonstrated with slightly more prominent left basilar scarring. There is no n ew focal airspace opacity, pleural effusion, or pneumothorax identified bilaterally. Surgical clips o verlying left breast are redemonstrated. Cardiac silhouette size is stable and upper limits of normal . IMPRESSION: Chronic parenchymal change with resolved left basilar infiltrate, no new infiltrate is se en.
[2017-12-19] MEDS: guaiFENesin-DM 100-10MG/5ML 10 ML CUP PO PRN (09:06)
[2017-12-19 10:32] LABS: Basophils % (A) 0 %; Eosinophils % (A) 0 %; HCT 32.7 % (34.0-46.0); HGB 9.9 gm/dL (11.4-16.0); Hypochromasia Moderate; Lymphocytes # (A) 0.7 k/uL (1.0-4.8); Lymphocytes % (A) 6 %; MCH 28.4 pg (25.0-35.0); MCHC 30.3 g/dL (31.0-37.0); MCV 93.7 fL (80.0-100.0); Monocytes # (A) 0.3 k/uL (0-1.0); Monocytes % (A) 3 %; Neutrophils # (A) 10.3 k/uL (1.3-7.7); Neutrophils % (A) 91 %; Platelet Count 369 k/uL (150-450); RBC 3.49 m/uL (3.80-5.40); RDW 15.7 % (11.5-15.5); WBC 11.4 k/uL (3.8-10.6)
[2017-12-19 10:56] LABS: Anion Gap 12 mmol/L; Blood Urea Nitrogen 29 mg/dL (7-17); Calcium 8.4 mg/dL (8.4-10.2); Carbon Dioxide 25 mmol/L (22-30); Chloride 93 mmol/L (98-107); Glucose 420 mg/dL (74-99); Phosphorus 2.6 mg/dL (2.5-4.5); Potassium 3.1 mmol/L (3.5-5.1); Sodium 130 mmol/L (137-145)
[2017-12-19 11:27] LABS: Glucose,Whole Blood 386 mg/dL (75-99)
[2017-12-19] MEDS ORDERED: INSULIN DETEMIR 100 UNIT/ML 10 ML VIAL SQ SCH (13:30)
[2017-12-19 14:57] VITALS: BP 121/78; RESP 18; TEMP 97.6
[2017-12-19 15:20] VITALS: PULSE 86
--- NOTE | 2017-12-19 15:29 | P.PN ---
Subjective Progress Note Date: 12/19/17 Principal diagnosis: Acute hypoxic respiratory failure, multifactorial, secondary to coming acquired pneumonia, worsening from the fibrosis, and COPD exacerbation This is a 67-year-old female with history of multiple medical problems including interstitial lung disease, chronic obstructive pulmonary disease, degenerative joint disease, previous history of pericarditis, GERD, hypertension , diabetes, and history of breast cancer. Normally she follows up with Dr. Mendez regarding her interstitial lung disease, no previous lung biopsy was done , but the patient had previous bronchoscopies and lavages which were nondiagnostic. Normally the patient is maintained on bronchodilators including albuterol and Pulmicort. Has been intermittently on doses of prednisone burst and taper. Patient presented to the ER yesterday with mostly one-day history of increased shortness of breath, cough, wheezing, cough is productive with whitish phlegm. Patient was also complaining of generalized body aches, chills at home, no chest pain, no nausea no vomiting, no diarrhea. Workup in the ER revealed evidence of leukocytosis, relative hypoxemia and respiratory alkalosis , mild hyponatremia with a sodium of 129, and lactic acidosis with lactic acid of 3.4. Patient will also noted to have slightly elevated transaminases, and slightly elevated troponin of 0.017. Viral screen was negative for influenza A and influenza B. Her initial chest x-ray showed evidence of interstitial lung disease, and worsening airspace disease in the left lower lobe and left midlung. The radiologist felt that the patient may have interstitial edema and possible fluid overload, however follow-up chest x-ray in spite of fluid boluses showed definite improvement with mostly residual interstitial lung disease noted. Clinically, I felt that the patient presented with acute left lower lobe pneumonia, with underlying interstitial lung disease, and sepsis. Patient is now on bronchodilators, back on her usual diuretics, antibiotics in the form of Levaquin, and she is on methylprednisolone 60 mg IV push every 6 hours. IV fluid is down to KVO, significant improvement noted over the last 24 hours, but the patient continues to have significant crackles or rhonchi and wheezes on physical examination today. On 12/19/2017 patient seen in follow-up on medical surgical floor. She states she is feeling better today, she has been up ambulating to the bathroom and in the hallway without any acute distress. She did qualify for home oxygen, her pulse ox on room air was 81%. Home oxygen is being arranged at 2 L per nasal cannula. Her pulse ox on 2 L is 94%. Other vitals are stable, patient is afebrile. Lung sounds are clear on the right, there is some coarse rales over left lower lobe. She denies any chest pain, she denies any chest congestion, no fever or chills. Urine and blood cultures are negative. Yesterday she received a dose of IV Lasix, and on today's chest x-ray there is significant improvement in the appearance of interstitial edema noted. Patient is in a - 180 fluid balance, responded well to diuretics. Patient is requesting to go home today, from pulmonary standpoint she stable for discharge today. Objective - Vital Signs Vital signs: Vital Signs Temp 98.5 F 12/19/17 06:28 Pulse 96 12/19/17 11:17 Resp 32 H 12/19/17 06:28 BP 154/100 12/19/17 06:28 Pulse Ox 94 L 12/19/17 12:20 Intake & Output 12/18/17 12/19/17 12/19/17 18:59 06:59 18:59 Intake Total 170 Output Total 1975 Balance -1805 Weight 88 kg Intake: IV 95 NS 95 Intake, IV Titration 75 Amount Sodium Chloride 0.9% 1, 75 000 ml @ 20 mls/hr IV . Q24H [facility] Rx#:[id number] Output: Urine 1974 Stool 1 Other: Voiding Method Toilet Toilet # Voids 1 2 # Bowel Movements 1 - Exam Constitutional: Physical examination revealed a 67-year-old female, slightly anxious, in no distress. Presently on nasal cannula. Few liters. Head: Atraumatic, normocephalic, Eyes: PERRLA, EOMI, no icterus, Neck: Supple no neck masses, moist mucous membranes, no stridor no lymphadenopathy no thyromegaly Heart: Regular rate rhythm normal S1-S2 no murmurs Lungs: Crackles noted at the left posterior lower base, no wheezes or rhonchi, no chest wall tenderness, Abdomen: Obese soft nontender no megaly no rebound no guarding. Positive bowel sounds. Extremities: No clubbing edema or cyanosis, normal pulses bilaterally. Neuro: no gross focal neurologic deficit. Alert oriented 3. Psych: Slightly anxious, normal mental status examination. - Labs CBC & Chem 7: 12/19/17 09:59 12/19/17 09:59 Labs: Abnormal Lab Results - Last 24 Hours (Table) 12/18/17 12/18/17 12/19/17 Range/Units 17:43 20:41 07:26 WBC (3.8-10.6) k/uL RBC (3.80-5.40) m/uL Hgb (11.4-16.0) gm/dL Hct (34.0-46.0) % MCHC (31.0-37.0) g/dL RDW (11.5-15.5) % Neutrophils # (1.3-7.7) k/uL Lymphocytes # (1.0-4.8) k/uL Sodium (137-145) mmol/L Potassium (3.5-5.1) mmol/L Chloride (98-107) mmol/L BUN (7-17) mg/dL Glucose (74-99) mg/dL POC Glucose (mg/dL) 329 H 360 H 421 H (75-99) mg/dL 12/19/17 12/19/17 12/19/17 Range/Units 09:59 09:59 11:26 WBC 11.4 H (3.8-10.6) k/uL RBC 3.49 L (3.80-5.40) m/uL Hgb 9.9 L (11.4-16.0) gm/dL Hct 32.7 L (34.0-46.0) % MCHC 30.3 L (31.0-37.0) g/dL RDW 15.7 H (11.5-15.5) % Neutrophils # 10.3 H (1.3-7.7) k/uL Lymphocytes # 0.7 L (1.0-4.8) k/uL Sodium 130 L (137-145) mmol/L Potassium 3.1 L (3.5-5.1) mmol/L Chloride 93 L (98-107) mmol/L BUN 29 H (7-17) mg/dL Glucose 420 H (74-99) mg/dL POC Glucose (mg/dL) 386 H (75-99) mg/dL Microbiology - Last 24 Hours (Table) 12/18/17 00:25 Urine Culture - Final Urine,Voided 12/17/17 14:25 Blood Culture - Preliminary Blood No Growth after 24 hours Assessment and Plan Plan: Assessment: Acute hypoxic respiratory failure, multifactorial, secondary to community- acquired pneumonia involving the left lower lobe, worsening pulmonary fibrosis, underlying COPD exacerbation Acute sepsis secondary to left lower lobe pneumonia with lactic acidosis, responded to fluid boluses. Acute exacerbation of chronic obstructive lung disease and possibly exacerbation of underlying interstitial lung disease. Multiple comorbidities including history of breast cancer, type 2 diabetes, GERD with esophagitis, benign essential hypertension, osteoarthritis, C2 neck fracture, Recommendation: Patient reports significant improvement in terms of dyspnea. Lung sounds also show improvement, there are no wheezes or rhonchi noted on today's exam. There are some scattered crackles over left lower posterior lobe. Patient did qualify for home oxygen, she will be going home on 2 L per nasal cannula. Patient developed significant steroid-induced hyperglycemia, we will stop the IV steroids and switch her to oral prednisone 30 mg daily. Microbiology is negative. Her vital signs are stable, she remains afebrile, she is tolerating activity well, she has been ambulating in the room and in the hallway. She is requesting to go home today. From pulmonary standpoint she is stable for discharge home today. On prednisone taper, and oral Levaquin. Continue with her maintenance inhalers and nebulized treatments. She will need follow-up appointment with Dr. Mendez in the office in 7-10 days I performed a history & physical examination of the patient and discussed their management with my nurse practitioner, Pooja Tobar. I reviewed the nurse practitioner's note and agree with the documented findings and plan of care. Lung sounds are positive for coarse rales over posterior left lower lobe. The findings and the impression was discussed with the patient. I attest to the documentation by the nurse practitioner.
[2017-12-19] MEDS: LEVOFLOXACIN 750MG-D5W PMX 750 MG in DEXTROSE/WATER 1 150ML.BAG IVPB SCH (16:04)
[2017-12-19] MEDS ORDERED: INSULIN ASPART 100 UNIT/ML 1 ML 10 ML VIAL SQ SCH (17:30)
--- NOTE | 2017-12-20 06:41 | DS ---
DISCHARGE SUMMARY DATE OF SERVICE: 12/19/2017 FINAL DIAGNOSES: 1. Chronic obstructive pulmonary disease acute exacerbation with acute bilateral pulmonary fibrosis acute exacerbation with acute bilateral pneumonia possibly Gram- negative with sepsis and acute hypoxic respiratory failure. 2. Hyponatremia. 3. Diabetes mellitus type 2, uncontrolled. 4. Increased WBC. 5. Increased bilirubin. 6. Increased AST, ALT. 7. History of gastroesophageal reflux disease. 8. Hypertension. 9. History of degenerative joint disease. 10.History of pericarditis. 11.History of cervical C2 fracture. 12.History of breast surgery. 13.Anxiety, depression, not otherwise specified. DISCHARGE DISPOSITION: The patient will be discharged in a stable condition with guarded prognosis. Total time taken is 40 minutes. Patient is extremely keen on going home. HISTORY OF PRESENT ILLNESS: This 67-year-old woman with a past medical history of multiple medical problems was admitted with multiple complex medical issues as mentioned. Patient treated closely with Dr. Li in the ICU. Patient improved significantly, but however the patient is extremely keen on going home at this time. Also the patient will be discharged in stable condition with guarded prognosis. On exam, vitals are stable. CARDIOVASCULAR: S1 and S2 muffled. RESPIRATORY: A few scattered rhonchi and crackles. ABDOMEN: Soft. NERVOUS SYSTEM: No focal deficits. Patient is also recommended to follow up closely with primary physician and as well as Accu-Cheks also. DISCHARGE ADVICE: 1. Diet is consistent carb. 2. Activity limited until followup. 3. Follow up with Dr. Curtis in 2 to 3 days. 4. Follow up with Dr. Mendez as advised. Medications will be as follows: 1. ProAir p.r.n. 2. Aspirin 325 mg p.o. daily. 3. Biotin 5 mg p.o. daily. 4. Pulmicort 2 puffs b.i.d. 5. Zyrtec 10 mg p.o. daily. 6. Flonase 1 spray daily. 7. Lasix 20 mg p.o. daily. 8. Garlic daily. 9. Guaifenesin q.6 p.r.n. 10.HydroDIURIL 25 mg p.o. daily. 11.Humalog scale. 12.Albuterol and Atrovent updraft q.i.d. and p.r.n. 13.Levaquin 750 mg p.o. daily. 14.Glucophage 1000 mg daily. 15.Milk Thistle. 16.Naprosyn p.r.n. 17.Oxycodone p.r.n. 18.Prednisone taper. 19.Restoril 15 mg p.o. daily. 20.Diovan 160 mg p.o. daily. Once again, the patient will be discharged in a stable condition with a guarded prognosis. MMODL / IJN: [id number] /
[2017-12-20] MEDS ORDERED: predniSONE 10 MG TAB PO SCH (09:00)
[2017-12-20] MEDS ORDERED: LEVOFLOXACIN 750 MG TAB PO SCH (16:00)
== END 2017-12-19 17:00 | disposition home or self-care (01) | DRG 871 ==
LOC: EC 13:41 → 6SEL 15:59 → 6ICU 17:29 → 4MS4W 12-18 14:17
PROVIDERS: ADMIT Internal Medicine; ATTEND Internal Medicine
DX: A41.50 Gram-negative sepsis, unspecified (principal); J15.6 Pneumonia due to other Gram-negative bacteria; J96.01 Acute respiratory failure with hypoxia; E87.4 Mixed disorder of acid-base balance; J84.10 Pulmonary fibrosis, unspecified; E87.1 Hypo-osmolality and hyponatremia; J44.0 Chronic obstructive pulmonary disease with (acute) lower respiratory infection; J44.1 Chronic obstructive pulmonary disease with (acute) exacerbation; E11.65 Type 2 diabetes mellitus with hyperglycemia; I10 Essential (primary) hypertension; K21.0 Gastro-esophageal reflux disease with esophagitis; M19.90 Unspecified osteoarthritis, unspecified site; R74.8 Abnormal levels of other serum enzymes; R74.0 Nonspecific elevation of levels of transaminase and lactic acid dehydrogenase [LDH]; F41.9 Anxiety disorder, unspecified; F32.9 Major depressive disorder, single episode, unspecified; Z79.82 Long term (current) use of aspirin; Z79.84 Long term (current) use of oral hypoglycemic drugs; Z79.899 Other long term (current) drug therapy; Z88.1 Allergy status to other antibiotic agents; Z91.018 Allergy to other foods; Z88.0 Allergy status to penicillin; Z88.8 Allergy status to other drugs, medicaments and biological substances; Z85.3 Personal history of malignant neoplasm of breast; Z91.81 History of falling
CPT/HCPCS: 36415; 36600; 71045; 80048; 80053; 81003; 82805; 83036; 83605; 83735; 84100; 84484; 85025; 85610; 85730; 86738; 87040; 87086; 87449; 87502; 93005; 94640; 94644; 94760; 96361; 96365; 96375; 99285